=== PATIENT | male | born 1960 | race Caucasian/White ===

== ENCOUNTER 2017-07-21 19:05 | Emergency (ER) | payer BC ==
[~2017-07-21] VITALS: Ht 165.1 cm; Wt 87.8 kg
[~2017-07-21 19:05] MED LIST: ACET-749 PO; ALLO300T2 PO; POTA1080 PO; TRAM-10 PO
[2017-07-21 19:07] VITALS: TEMP 36.4; Ht 165.1 cm; Wt 87.8 kg
[2017-07-21] MEDS ORDERED: SODIUM CHLORIDE 0.9% 1000ML 1,000 ML IV SCH (19:45)
[2017-07-21 19:57] LABS: HEMATOCRIT 43.8 % (42-52); HEMOGLOBIN 15.7 g/dL (14.0-18.0); MEAN CELL VOLUME 87.1 fL (80-100); MEAN CORPUSCULAR HEMOGLOBIN 31.2 pg (25-34); MEAN CORPUSCULAR HGB CONC 35.8 g/dl (32-36); MEAN PLATELET VOLUME 9.8 fL (7.4-10.4); PLATELET COUNT 232 K/uL (130-400); RED CELL DISTRIBUTION WIDTH CV 13.3 % (11.5-14.5); RED CELL DISTRIBUTION WIDTH SD 42.3 fL (36.4-46.3); WHITE BLOOD COUNT 7.24 K/uL (4.8-10.8)
[2017-07-21 20:15] LABS: ALBUMIN 3.8 gm/dl (3.4-5.0); CALCIUM 8.5 mg/dl (8.5-10.1); CREATININE 1.17 mg/dl (0.60-1.40); POTASSIUM 3.9 mmol/L (3.5-5.1)
[2017-07-21 20:17] LABS: TOTAL PROTEIN 7.2 gm/dl (6.4-8.2)
--- NOTE | 2017-07-21 20:21 | EMERGENCY ROOM VISIT NOTE ---
History First contact with patient: 19:10 Chief Complaint: KIDNEY STONE Stated Complaint: KIDNEY STONE History of Present Illness The patient is a 57 year old male who presents to the Emergency Room with complaints of abdominal pain. The pain started 4 hours ago. It is located in his right flank. It is constant and radiates down to his right testicle. Nothing seems to make it better. He rates the pain as an 4-8/10 in severity. His associated symptoms include nausea, diarrhea, and haematuria He denies any vomiting, fevers, loss of appetite, or dysuria He has had 3 kidney stones in the past which have needed lithotripsy and needed to be stented. Review of Systems CONSTITUTIONAL: No fever, chills, sweats or night sweats. No recent infections. No weight loss or weight gain. NEUROLOGIC: No headaches, dizziness or syncopal episodes. HEENT: No hearing or visual changes. No sinus or nasal issues. CARDIOVASCULAR: No chest pain or palpitations. RESPIRATORY: No SOB, dyspnea, cough or hemoptysis. GASTROINTESTINAL: No vomiting, constipation, reflux, melena or hematochezia. + nausea GENITOURINARY: No dysuria, frequency, urgency, incontinence +hematuria SKIN: No rashes or skin lesions. No hair loss or nail changes. HEMATOLOGIC:+hematuria Past Medical/Surgical History Medical Problems: (1) Kidney stones GOUT Family History Patient reports no known family medical history. Social History Smoking Status: Never Smoker Alcohol Use: occasionally Drug Use: none Marital Status: Occupation Status: employed Current/Historical Medications Scheduled Allopurinol (Zyloprim), 300 MG PO DAILY Ascorbic Acid (Ascorbic Acid), 1,000 MG PO DAILY Cholecalciferol (Vitamin D3), 5,000 UNITS PO DAILY Coenzyme Q10 (Ubidecarenone) (Co Q 10), Unknown Dose PO DAILY Magnesium Oxide (Mag-Ox), 400 MG PO 3XWK Potassium Citrate (Potassium Citrate), 10 MEQ PO BID Probiotic Product (Probiotic), 1 CAP PO DAILY Vitamin A (Vitamin A), 8,000 UNITS PO DAILY Zinc Sulfate (Zinc Sulfate), 220 MG PO DAILY [Various Herbals], PO DAILY Allergies NKDA Physical Exam Vital Signs Date Time Temp Pulse Resp B/P (MAP) Pulse Ox O2 Delivery O2 Flow Rate FiO2 07/21/17 19:07 36.4 63 16 176/106 96 Room Air Physical Exam Neck: Supple; no JVD, nuchal rigidity, cervical lymphadenopathy, or auscultated bruits. Heart: Regular rate and rhythm. There is a normal S1 and S2 with no murmurs, clicks, or gallops appreciated. Lungs: Clear to auscultation bilaterally with no wheezes, rales, or rhonchi. Abdomen: Soft, completely nontender, nondistended, with good bowel sounds. There are no palpable pulsatile masses or hepatosplenomegaly. There is no guarding, rigidity, or rebound noted. Extremities: No evidence of cyanosis, clubbing, or edema. There are easily palpable peripheral pulses. Neuro:The patient is awake and alert, oriented to day, time, and place. Muscle strength is 5/5 in all 4 extremities. 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 There are no cerebellar signs. Medical Decision & Procedures Laboratory Results 07/21/17 19:45 07/21/17 19:45 Test 07/21/17 19:30 07/21/17 19:45 Urine Color YELLOW Urine Appearance CLEAR (CLEAR) Urine pH 5.5 (4.5-7.5) Urine Specific Ama 1.017 (1.000-1.030) Urine Protein NEG (NEG) Urine Glucose (UA) NEG (NEG) Urine Ketones NEG (NEG) Urine Occult Blood 3+ (NEG) Urine Nitrite NEG (NEG) Urine Bilirubin NEG (NEG) Urine Urobilinogen NEG (NEG) Urine Leukocyte Esterase NEG (NEG) Urine WBC (Auto) 1-5 /hpf (0-5) Urine RBC (Auto) >30 /hpf (0-4) Urine Hyaline Casts (Auto) 0 /lpf (0-5) Urine Epithelial Cells (Auto) 0-5 /lpf (0-5) Urine Bacteria (Auto) NEG (NEG) Red Blood Count 5.03 M/uL (4.7-6.1) Mean Corpuscular Volume 87.1 fL (80-100) Mean Corpuscular Hemoglobin 31.2 pg (25-34) Mean Corpuscular Hemoglobin Concent 35.8 g/dl (32-36) RDW Standard Deviation 42.3 fL (36.4-46.3) RDW Coefficient of Variation 13.3 % (11.5-14.5) Mean Platelet Volume 9.8 fL (7.4-10.4) Anion Gap 6.0 mmol/L (3-11) Est Creatinine Clear Calc Drug Dose 70.1 ml/min Estimated GFR () 79.2 Estimated GFR (Non- 68.3 BUN/Creatinine Ratio 24.3 (10-20) Calcium Level 8.5 mg/dl (8.5-10.1) Total Bilirubin 0.6 mg/dl (0.2-1) Aspartate Amino Transf (AST/SGOT) 15 U/L (15-37) Alanine Aminotransferase (ALT/SGPT) 27 U/L (12-78) Alkaline Phosphatase 62 U/L (45-117) Total Protein 7.2 gm/dl (6.4-8.2) Albumin 3.8 gm/dl (3.4-5.0) Globulin 3.4 gm/dl (2.5-4.0) Albumin/Globulin Ratio 1.1 (0.9-2) Medications Administered Medications (Trade) Dose Ordered Sig/Krys Route Start Time Stop Time Status Last Admin Dose Admin Sodium Chloride 1,000 ml @ 999 mls/hr Q1H1M IV 07/21/17 19:45 08/20/17 19:44 07/21/17 19:45 999 MLS/HR ED Course 0: I went to [facility] and did a full history and examination 1929: I spoke to Dr. Mejia and we discussed the plan for the patient. I ordered lab work and a CT scan of the patients abdomen 2014: Dr. Mejia was evaluating the patient and the patient passed his kidney stone and his pain resolved 2016: Discussed the plan with the patient and discharged him Medical Decision The patient's history was concerning for abdominal pain. Differential diagnosis: Etiologies such as appendicitis, diverticulitis, PUD, biliary pathology, UTI, pancreatitis, obstruction, mesenteric ischemia, aortic pathology, infections, inflammatory bowel disease, renal colic, as well as others were entertained. The patient came in with abdominal pain and we ordered a CT scan of his abdomen. He spontaneously passed a kidney stone while in the emergency department. I visualized this in the toilet. I discharged him with follow up with his PCP Impression Primary Impression: Kidney stone Departure Information Dispostion Home / Self-Care Condition GOOD Referrals Marcelino Proctor M.D. (PCP) Patient Instructions My [facility] Additional Instructions You came to the emergency department due to abdominal pain You passed your kidney stone while in the emergency department If you have any worsening pain you can take tylenol or ibuprofen over the counter to help with the pain Continue to drink plenty of fluids to help pass any other stones you may have If you have any worsening abdominal pain, vomiting, or fevers then please come back to the emergency department Please follow up with your PCP in the next 3-5 days
[2017-07-21] MEDS ORDERED: URC10 PO (20:22)
[2017-07-21] MEDS ORDERED: VITA80005 PO (20:24)
[2017-07-21] MEDS ORDERED: ASCO100061 PO (20:25)
[2017-07-21] MEDS ORDERED: MISCCAP80 PO (20:27)
[2017-07-21] MEDS ORDERED: COEN60CA2 PO (20:27)
[2017-07-21] MEDS ORDERED: ZINC1CAP PO (20:29)
[2017-07-21] MEDS ORDERED: CHOL1TAB46 PO (20:29)
[2017-07-21] MEDS ORDERED: MAGN400T6 PO (20:30)
[2017-07-21] MEDS ORDERED: [UNRECOGNIZED DRUG - REMARK] PO (20:32)
[2017-07-21] MEDS ORDERED: HERBALS PO (20:33)
[2017-07-21 20:41] VITALS: BP 142/94; PULSE 67; O2SAT 98
== END 2017-07-21 20:41 | disposition home or self-care (01) ==
LOC: C.EDB 19:06 → C.EDC 20:41
DX: N20.0 Calculus of kidney (principal); Z79.899 Other long term (current) drug therapy

== ENCOUNTER 2020-01-23 19:04 | Inpatient (IN) ==
[2020-01-23] MEDS ORDERED: SODIUM CHLORIDE 0.9% 1000ML 1,000 ML IV ONE ×2 (19:23→20:30)
[2020-01-23] MEDS ORDERED: ONDANSETRON INJ 2 MG/ML 2 ML VIAL IV STA (19:23)
--- NOTE | 2020-01-23 20:03 | XRay Report ---
XR chest 1V portable CLINICAL HISTORY: Atypical chest pain COMPARISON STUDY: No previous studies for comparison. FINDINGS: The heart is mildly enlarged. There is no failure. There is no focal pulmonary consolidatio n. There are no significant pleural effusions. There are left-sided rib fractures, likely old given t he absence of a history of trauma and left-sided chest pain[ IMPRESSION: 1. No active disease in the chest. ACT 112: Negative or not required by law. Electronically signed by: Wayne Rothman M.D. 01/23/2020 8:01 PM
[2020-01-23 20:11] LABS: Partial Thromboplastin Ratio 1.1; Partial Thromboplastin Time 29.9 Seconds (21.0-31.0); Prothrombin Time 10.7 Seconds (9.0-12.0)
[2020-01-23 20:14] LABS: Basophils # (auto) 0.01 K/uL (0-0.2); Basophils % (auto) 0.1 %; Eosinophils # (auto) 0.06 K/uL (0-0.5); Eosinophils % (auto) 0.6 %; Hematocrit (blood only) 45.8 % (42-52); Immature Granulocytes # (auto) 0.03 K/uL (0.00-0.02); Immature Granulocytes % (auto) 0.3 %; Lymphocytes # (auto) 0.87 K/uL (1.2-3.4); Lymphocytes % (auto) 8.8 %; Mean Corpuscular Hemoglobin 30.9 pg (25-34); Mean Corpuscular Hgb Conc 34.9 g/dL (32-36); Mean Corpuscular Volume 88.4 fL (80-100); Mean Platelet Volume 10.1 fL (7.4-10.4); Monocytes # (auto) 0.86 K/uL (0.11-0.59); Monocytes % (auto) 8.7 %; Neutrophils # (auto) 8.07 K/uL (1.4-6.5); Neutrophils % (auto) 81.5 %; Platelet Count 188 K/uL (130-400); RDW Coefficient of Variation 12.8 % (11.5-14.5); RDW Standard Deviation 41.4 fL (36.4-46.3); Red Blood Count 5.18 M/uL (4.7-6.1)
[2020-01-23 20:23] LABS: Alanine Aminotransferase 27 U/L (12-78); Albumin Globulin Ratio 1.2 (0.9-2); Albumin Level 3.5 gm/dl (3.4-5.0); Alkaline Phosphatase 63 U/L (45-117); Aspartate Aminotransferase 18 U/L (15-37); BUN Creatinine Ratio 9.7 (10-20); Bilirubin,Total 0.6 mg/dl (0.2-1); Blood Urea Nitrogen 37 mg/dl (7-18); Calcium 8.1 mg/dl (8.5-10.1); Carbon Dioxide 25 mmol/L (21-32); Chloride 108 mmol/L (98-107); Creatine Kinase 65 U/L (39-308); Creatine Kinase MB < 1.0 ng/ml (0.5-3.6); Creatinine Clr Calc Pharmacy 21.9 ml/min; Est GFR (Non-African American) 16.4; Globulin 2.9 gm/dl (2.5-4.0); Glucose 110 mg/dl (70-99); Lipase 93 U/L (73-393); Potassium 4.1 mmol/L (3.5-5.1); Sodium 141 mmol/L (136-145); Total Protein 6.4 gm/dl (6.4-8.2); Troponin I < 0.015 ng/ml (0-0.045)
[2020-01-23] MEDS ORDERED: HYDROmorphone INJ 0.5 MG/0.5 ML SYR IV STA (22:00)
[2020-01-24] MEDS: cefTRIAXone SODIUM 2,000 MG in DEXTROSE 5% 50 ML IV SCH (00:28)
[2020-01-24] MEDS: FAMOTIDINE 20 MG in SYRINGE 3 ML IV SCH ×3 (00:29→20:53)
[2020-01-24] MEDS: SODIUM CHLORIDE 0.9% 1000ML 1,000 ML IV SCH ×3 (00:29→14:10)
[2020-01-24] MEDS: ONDANSETRON INJ 2 MG/ML 2 ML VIAL IV PRN ×2 (00:29→10:25)
--- NOTE | 2020-01-24 00:36 | History and Physical Report ---
DATE OF ADMISSION: 01/23/2020 CHIEF COMPLAINT: Right flank pain. HISTORY OF PRESENT ILLNESS: This 59-year-old male with past medical history significant for gout, no longer on medications, history of old AK, GERD, history of urothelial carcinoma of bladder, status post resection and 6 weeks of BCG induction, currently on surveillance. History of multiple kidney stones in the past, comes because of right flank pain. The patient was in the ER yesterday with right groin pain and found to have 7 mm obstructing calculus in the right proximal ureter with moderate right hydronephrosis. The patient felt better with the pain medication, UA was trace positive and was sent home on cefdinir. He wanted to go home and he was discharged and patient says after going home, he immediately was nauseous and vomited and could not eat anything, but he slept okay. In the morning, when he woke up he tried to eat banana and he could not keep it down. He was vomiting and could not eat much and even drinking water making him feel heartburn kind of feeling. In the afternoon the pain came back and that has brought him back to the hospital. His creatinine was 1.58 yesterday. His baseline seems to be around 1.1 and today his creatinine jumped up to 3.76 and his CAT scan showing there is no change in the kidney stone. The patient currently requiring pain medications. He said he did not urinate much today, but after getting fluids, he is able to urinate in the ER. Denies any fever, but felt some cold, has a headache that is getting better with the pain medication. No blurred vision, no earache, no runny nose, no sore throat, no cough, no difficulty swallowing, no chest pain, no shortness of breath. Normal bowel movements. He has some hematuria, since couple of days but is getting better. No burning micturition, no swelling in the legs, no rash. Hemodynamics are stable. ALLERGIES: No known drug allergies. PAST MEDICAL HISTORY: As mentioned above. PAST SURGICAL HISTORY: Left heart catheterization, colonoscopy, cystourethroscopy with lithotripsy multiple times, stent placement, stent removal, tonsillectomy. MEDICATIONS: Currently the patient is on cefdinir 300 mg p.o. b.i.d., multivitamin 1 tablet daily, oxycodone 5 mg p.o. q. 6 hours p.r.n., Flomax 0.4 mg p.o. daily. FAMILY HISTORY: Significant for father had throat cancer, diabetes, heart disorder, nephrolithiasis. Paternal grandmother had throat cancer. SOCIAL HISTORY: Lives alone. Former smoker, quit in 1979, used to drink heavily, quit in 1998. No drug use. REVIEW OF SYMPTOMS: As per HPI. Rest of review of symptoms negative. PHYSICAL EXAMINATION: GENERAL: The patient is obese, not in acute distress. VITAL SIGNS: Temperature 37.5, pulse 61, respiratory rate 18, blood pressure 142/90, oxygen 95% on room air. HEENT: No pallor, no icterus. Oral mucosa dry. NECK: No JVD, no neck masses. CARDIOVASCULAR: S1, S2 heard, regular rate and rhythm, no murmur, no gallop. RESPIRATORY SYSTEM: Normal AP diameter. No accessory muscle use. No wheezing, no crackles. ABDOMEN: Soft, bowel sounds present. Nontender. No CVA tenderness, no guarding, no rigidity. CENTRAL NERVOUS SYSTEM: Cranial nerves II-XII grossly intact. Nonfocal. EXTREMITIES: No edema, no erythema. LABORATORY DATA: WBC 9.9, hemoglobin 16, hematocrit 45.8, platelets 188. PT 10.7, INR 1, APTT 29.9. Sodium 141, potassium 4.1, chloride 108, bicarbonate 25, BUN 37, creatinine 3.76, serum glucose 110, calcium 8.1, total bilirubin 0.6, AST 18, ALT 27, alkaline phosphatase 63, total creatinine kinase 65. Troponin I less than 0.015. Lipase 93. Chest x-ray, no active disease in the chest. EKG: Sinus bradycardia, rate of 55, no significant change from previous EKG. IMAGING: CT of abdomen and pelvis without contrast shows obstructing 7 mm proximal right ureteral stone is unchanged in position when compared to prior exam. There is persistent upstream hydroureteronephrosis with perinephric stranding fluid. There is stable nonobstructing right kidney stones, stable atrophy of the left kidney. ASSESSMENT AND PLAN: This is a 59-year-old male who presents with renal colic and worsening renal function. 1. Renal colic: A 7 mm obstructing proximal right ureteral kidney stone, history of multiple kidney stones in the past with multiple cystoscopies, stone extraction, and lithotripsy. The patient was discharged home yesterday from Er comes back with severe pain and also acute kidney injury. We will place him on n.p.o., IV fluids, IV Dilaudid p.r.n., IV Zofran p.r.n. Flomax. Urology consulted and notified. N.p.o. after midnight. 2. Acute kidney injury: Baseline creatinine 1.1, current creatinine 3.7 secondary to above, getting fluids. We will follow the repeat labs. The patient also had nausea, vomiting yesterday and could not eat anything, possibly dehydration contributing. 3. Mild urinary tract infection, mildly UA positive: Was sent home on cefdinir. We will place him on Rocephin. Follow the cultures. 4. History of bladder tumor, status post resection and treatment with BCG. Currently on surveillance, follow up with urology. 5. Gastroesophageal reflux disease. The patient has some heartburn symptoms. We will place him on IV Pepcid. . 6. Deep venous thrombosis prophylaxis: Sequential compression devices. DISPOSITION: Admit to medical floor. Expect to discharge home and follow with family doctor. Level 1 full code. MTDD
[2020-01-24] MEDS: ACETAMINOPHEN 325 MG TAB PO PRN ×2 (00:38→20:53)
[2020-01-24 05:23] LABS: Basophils # (auto) 0.01 K/uL (0-0.2); Basophils % (auto) 0.1 %; Eosinophils # (auto) 0.07 K/uL (0-0.5); Eosinophils % (auto) 0.8 %; Immature Granulocytes # (auto) 0.02 K/uL (0.00-0.02); Immature Granulocytes % (auto) 0.2 %; Lymphocytes # (auto) 1.01 K/uL (1.2-3.4); Lymphocytes % (auto) 11.6 %; Mean Corpuscular Hemoglobin 31.3 pg (25-34); Mean Corpuscular Hgb Conc 34.1 g/dL (32-36); Mean Corpuscular Volume 91.5 fL (80-100); Monocytes # (auto) 0.87 K/uL (0.11-0.59); Neutrophils # (auto) 6.72 K/uL (1.4-6.5); Neutrophils % (auto) 77.3 %; Platelet Count 169 K/uL (130-400); RDW Coefficient of Variation 13.1 % (11.5-14.5); RDW Standard Deviation 43.4 fL (36.4-46.3); Red Blood Count 4.48 M/uL (4.7-6.1)
[2020-01-24] MEDS: HYDROmorphone INJ 0.5 MG/0.5 ML SYR IV PRN ×2 (05:48→09:31)
[2020-01-24 05:59] LABS: BUN Creatinine Ratio 9.1 (10-20); Calcium 6.9 mg/dl (8.5-10.1); Creatinine Clr Calc Pharmacy 20.3 ml/min; Est GFR (African American) 18.2; Est GFR (Non-African American) 15.7; Potassium 4.5 mmol/L (3.5-5.1)
--- NOTE | 2020-01-24 07:43 | CT Scan Report ---
ABDOMEN AND PELVIS CT WITHOUT CONTRAST CT DOSE: 843.14 mGy.cm HISTORY: Pt c/o Rt sided flank pain TECHNIQUE: Multiaxial CT images of the abdomen and pelvis were performed without contrast. A dose lo wering technique was utilized adhering to the principles of ALARA. COMPARISON STUDY: Abdomen and pelvis CT 01/22/2020. FINDINGS: There are few small nonobstructing stones within the right kidney, unchanged. Mild right hy dronephrosis secondary to an obstructing 7 mm stone within the proximal right ureter best seen image 45 of 93. There is also unchanged. Right perinephric edema persists. The bladder is unremarkable. Atr ophic left kidney, unchanged. Bibasilar linear densities consistent with subsegmental atelectasis. Th e unenhanced liver, gallbladder, spleen, adrenal glands, and pancreas are unremarkable. No retroperit victoria lymphadenopathy. Suboptimal evaluation for bowel pathology due to the lack of intravenous and o ral contrast. However, there is no definite bowel wall thickening or obstruction. Colonic diverticulo sis. No evidence for diverticulitis. Normal appendix. IMPRESSION: 1. No change in the 7 mm obstructing stone within the proximal right ureter resulting in mild right h ydronephrosis. 2. Stable right-sided nephrolithiasis. 3. Additional findings as described above. ACT 112: Negative or not required by law. Electronically signed by: Brett Barrett M.D. 01/24/2020 7:41 AM
--- NOTE | 2020-01-24 09:00 | Urology Consultation ---
Date of Consultation January 24, 2020 Assessment & Plan (1) Kidney stones: Patient with obs stone with worsening renal function with likely decreased function in contralateral kidney. No major family history of stones. Patient has had multiple stones in past with Dr. Hahn. Risks and benefits discussed at length for procedure. These include bleeding, infection, injury to surrounding tissues or organs, and risks associated with anesthesia. Patient states understanding and agrees to proceed. Will sign consent and schedule. Worsening renal failure this morning with hydration. Patient NPO. Plan for cystoscopy with right stent. (2) KYLEE (acute kidney injury): (3) Renal failure: History of Present Illness Attending Physician: Yair Schneider MD History of Present Illness New consultation for patient with stone, discomfort, obstruction, and ill feelings. Patient developed sudden onset of pain into flank going down and radiating into groin and back in waves comes and goes. Can be severe at times. Discussed and reviewed patient's family history for any history of stone disease. Also, discussed patient's medical surgery history especially related to any history of urinary issues or stone disease. History of left kidney cancer. Left kidney smaller and mild atrophic in appearance. Patient was admitted and is undergoing observation. Allergies Allergy/AdvReac Type Severity Reaction Status Date / Time No Known Allergies Allergy Verified 01/23/20 19:53 Home Medications Home Medications Medication Instructions Recorded Confirmed Type cefdinir 300 mg PO BID 10 Days #20 cap 01/22/20 01/23/20 Rx multivitamin 1 tab PO DAILY 01/22/20 01/23/20 History tamsulosin [Flomax] 0.4 mg PO DAILY #14 cap 01/22/20 01/23/20 Rx oxycodone 5 mg PO Q6H PRN 01/23/20 01/23/20 History Patient History Medical History Anxiety (Acute) Gout (Acute) Kidney stones (Acute) Right knee meniscal tear (Acute) Surgical History H/O lithotripsy (Acute) H/O right knee surgery (Acute) Social History Preferred Language: Swiss Communication Ability: Effective Folder Seamer Automatic Required: No Beliefs That Will Affect Care: None Current Living Situation: Other Current Living Situation Comment: lives with ex monica Other Information That Helps Us Care for You: No Feels Safe at Home: Yes Safety Concerns: Feels Safe At This Time Smoking Status: Never smoker Do You Dip or Chew Tobacco: No ; Second Hand Exposure: No ; Tobacco Cessation Education Requested by Patient: No Hx Alcohol Use: Yes Alcohol type: beer Hx Substance Use: Yes substance use type: marijuana Last Used Substance: Days (ago) Review of Systems Review of Systems: All systems reviewed & are unremarkable except as noted in HPI & below Physical Exam Physical Exam: General: Alert and oriented x 3 in no acute distress. Patient is well nourished and well kept. HEENT: Normocephalic Atraumatic. Inspection normal. Cranial Nerves 2-12 Grossly intact. Nares are clear. Neck is supple. Normal inspection of face. Normal inspection of neck. Neurologic: No deficits on inspection. Baseline for motor function and sensory. Psychologic: Normal affect. Respiratory: Nonlabored. No use of accessory muscles. No tachypnea or dyspnea. Cardiovascular: No tachycardia Skin: [place] and Dry. No rashes or visible lesions. Extremities: Moving without issues. No motor deficits on inspection Lymphatics: No edema Abdomen: Soft Non-distended. No acites. No rebound or guarding. Results & Data Vital Signs (Past 12 Hours) Vital Signs Temp Pulse Pulse Resp BP BP Pulse Ox 01/24/20 07:31 36.6 C 54 L 16 126/72 94 01/23/20 23:45 36.9 C 63 14 161/94 H 97 01/23/20 23:44 36.9 C 63 14 161/94 H 97 01/23/20 22:33 61 18 142/86 H 95 PG Care Time/CCT Total # of Minutes Spent Total Time Spent with Patient: Total time spent is greater than 50% in coordination of care (as documented) at patient's floor/unit and/or counseling patient: Coding Level of Care Code 37433 Inpt Consult Level 5 Diagnoses Kidney stones N20.0 KYLEE (acute kidney injury) N17.9 Renal failure N19
[2020-01-24] MEDS: TAMSULOSIN HCL 0.4 MG CAP PO SCH (09:08)
[2020-01-24] MEDS: MULTIVITAMIN TAB PO SCH (09:08)
--- NOTE | 2020-01-24 09:26 | Hospitalist Progress Note ---
Date of Service January 24, 2020 Assessment & Plan (1) ARF (acute renal failure): obstructing proximal right ureteral kidney stone -This is a 59-year-old male who presents with renal colic and worsening renal function due to 7 mm obstructing proximal right ureteral kidney stone -baseline creatinine 1.1 but admission creatinine of 3.7 likely from stone obstruction -Patient has right flank pain from kidney stone. on IV fluids 100 cc/hr, he does not feel he is urinating much. currently NPO and [facility]. will have nurse give pain medications and bladder scan if acosta needed possible urinary tract infection -on ceftriaxone History of bladder tumor, status post resection and treatment with BCG. -awaiting [facility] urology cystoscopy for removal of kidney ston Gastroesophageal reflux disease -reported history of heart attack 15 years ago as per patient -sinus bradycardia on admission EKG -on IV Pepcid -no typical cardiac chest pain symptoms at this time -should proceed to urology procedure because of acute renal failure and pain from kidney stones Deep venous thrombosis prophylaxis: Sequential compression devices. Admission and Anticipated Discharge Date Admission Date: January 23, 2020 Subjective Patient has right flank pain from kidney stone. on IV fluids 100 cc/hr, he does not feel he is urinating much. currently NPO and waiting for [facility] urology to remove the kidney stone. breathing on room air. no shortness of breath. no palpitations. no dizziness. no headache. no vomiting Review of Systems Review of Systems: All systems reviewed & are unremarkable except as noted in Subjective Physical Exam Constitutional: WD/WN, vitals as above Eyes: PERRL, conjunctivae normal, anicteric sclerae EOM intact bilaterally ENMT: external ear and nose normal, oropharynx normal Neck: trachea midline, no thyromegaly normal visual inspection Respiratory: normal respiratory effort, lungs clear to auscultation Cardiovascular: Rate/Rhythm: + bradycardic Gastrointestinal (Abdomen): Percussion/Palpation: abdomen soft Musculoskeletal: Head/Neck/Chest: normocephalic and head atraumatic Neurologic: PERRL, EOMI, accommodation nl, no face palsy, no dysarthria CN's II-XI intact bilaterally Psychiatric: A+Ox3, euthymic affect Results & Data Results & Data ([facility]) Vital Signs (Past 12 Hours) Vital Signs Temp Pulse Pulse Resp BP BP Pulse Ox 01/24/20 07:31 36.6 C 54 L 16 126/72 94 01/23/20 23:45 36.9 C 63 14 161/94 H 97 01/23/20 23:44 36.9 C 63 14 161/94 H 97 01/23/20 22:33 61 18 142/86 H 95
--- NOTE | 2020-01-24 14:17 | Electrocardiogram Report ---
Test Reason : Blood Pressure : / mmHG Vent. Rate : 055 BPM Atrial Rate : 055 BPM P-R Int : 202 ms QRS Dur : 090 ms QT Int : 412 ms P-R-T Axes : 049 028 017 degrees QTc Int : 394 ms Sinus bradycardia possible Inferior infarct , age undetermined Abnormal ECG When compared with ECG of 07-MAR-2015 08:42, No significant change was found Confirmed by Pancho Yo ([id number]) on 01/24/2020 2:17:24 PM Referred By: REFERRED SELF Confirmed By:Mohsen Yo
[2020-01-24 19:00] LABS: BUN Creatinine Ratio 9.9 (10-20); Calcium 7.3 mg/dl (8.5-10.1); Creatinine Clr Calc Pharmacy 19.6 ml/min; Est GFR (African American) 17.6; Est GFR (Non-African American) 15.1; Potassium 4.5 mmol/L (3.5-5.1)
[2020-01-25] MEDS: cefTRIAXone SODIUM 2,000 MG in DEXTROSE 5% 50 ML IV SCH (01:21)
[2020-01-25] MEDS: SODIUM CHLORIDE 0.9% 1000ML 1,000 ML IV SCH (01:21)
[2020-01-25 05:17] LABS: Basophils # (auto) 0.03 K/uL (0-0.2); Basophils % (auto) 0.4 %; Eosinophils # (auto) 0.18 K/uL (0-0.5); Eosinophils % (auto) 2.5 %; Hematocrit (blood only) 41.3 % (42-52); Hemoglobin 13.8 g/dL (14.0-18.0); Immature Granulocytes # (auto) 0.03 K/uL (0.00-0.02); Immature Granulocytes % (auto) 0.4 %; Lymphocytes # (auto) 1.38 K/uL (1.2-3.4); Lymphocytes % (auto) 19.5 %; Mean Corpuscular Hemoglobin 29.7 pg (25-34); Mean Corpuscular Hgb Conc 33.4 g/dL (32-36); Mean Platelet Volume 9.7 fL (7.4-10.4); Monocytes # (auto) 0.72 K/uL (0.11-0.59); Monocytes % (auto) 10.2 %; Neutrophils # (auto) 4.73 K/uL (1.4-6.5); Platelet Count 183 K/uL (130-400); RDW Coefficient of Variation 12.7 % (11.5-14.5); RDW Standard Deviation 40.8 fL (36.4-46.3); Red Blood Count 4.64 M/uL (4.7-6.1); White Blood Count 7.07 K/uL (4.8-10.8)
[2020-01-25 05:41] LABS: Albumin Level 2.7 gm/dl (3.4-5.0); BUN Creatinine Ratio 11.5 (10-20); Calcium 7.4 mg/dl (8.5-10.1); Creatinine Clr Calc Pharmacy 24.3 ml/min; Est GFR (African American) 22.7; Est GFR (Non-African American) 19.6; Potassium 4.1 mmol/L (3.5-5.1)
[2020-01-25 05:44] LABS: Albumin Globulin Ratio 0.9 (0.9-2); Bilirubin,Total 0.5 mg/dl (0.2-1); Globulin 2.9 gm/dl (2.5-4.0); Total Protein 5.6 gm/dl (6.4-8.2)
[2020-01-25] MEDS: FAMOTIDINE 20 MG in SYRINGE 3 ML IV SCH (08:17)
[2020-01-25] MEDS: MULTIVITAMIN TAB PO SCH (08:17)
[2020-01-25] MEDS: TAMSULOSIN HCL 0.4 MG CAP PO SCH (08:17)
--- NOTE | 2020-01-25 08:17 | Hospitalist Progress Note ---
Date of Service January 25, 2020 Assessment & Plan (1) ARF (acute renal failure): ARF (acute renal failure) from obstructing proximal right ureteral kidney stone Renal colic from obstructing proximal right ureteral kidney stone obstructing proximal right ureteral kidney stone -This is a 59-year-old male who presents with renal colic and worsening renal function due to 7 mm obstructing proximal right ureteral kidney stone -patient reports multiple kidney stone problems in the past and he reports in the past he self stopped potassium citrate -baseline creatinine 1.1 but admission creatinine of 1.58 and then next creatinine level was 3.76 -01/24/2020 patient passed the kidney stone around noon and this is sent to the lab, resolution of flank pain after passing the stone. patient does not want KUB because he fears radiation from radiology imaging and because he feels certain he passes the stone. he does not wish to go to OR for cystoscopy or stent. he is now allowed to eat a diet and continued on IV fluids as 80 cc/hr of normal saline -01/25/2020 creatinine coming down slightly to 3.25. He is making urine. The normal saline is increased to 100 cc/hr and plans to repeat lab at noon; he agrees to be seen by nephrology consult. urinary tract infection is likely ruled out -was started on empiric ceftriaxone on this admission however the urine analysis is without bacteria -however given, elevated creatinine elevations and recent kidney stone, it would be good idea to continue daily dosing of ceftriaxone for now until creatinine has further improvements History of bladder tumor, status post resection and treatment with BCG. Gastroesophageal reflux disease History of myocardial infarction in the past -reported history of heart attack 15 years ago as per patient -in regards to his history of heart attack 15 years ago, he is not on any cardiac medications because at the time he had heart attack while using toxic substances, he reports he is following primary care doctor and no current needs for cardiac medication as per his relationship with his primary care doctor (al though he reports self stopping statins in the past on his own accord, so I do not know how much of this is based on outpatient recommendation versus patient's own discretion). He does say he will follow up with his blood pressures which he notes has been somewhat higher in recent past prior to this hospitalization for flank pain from kidney stone. He denies current use of of any toxic recreational drugs or alcohol -sinus bradycardia on admission EKG -was given on IV Pepcid -no typical cardiac chest pain symptoms at this time Deep venous thrombosis prophylaxis: Sequential compression devices. Admission and Anticipated Discharge Date Admission Date: January 23, 2020 Subjective Patient on IV fluids. no acute distress. no chest pain. no shortness of breath. on room air. no palpitations. no dizziness. no lightheadedness. no vomiting. ambulatory with the IV pole. trend the creatinine Review of Systems Review of Systems: All systems reviewed & are unremarkable except as noted in Subjective Physical Exam Constitutional: WD/WN, vitals as above Eyes: PERRL, conjunctivae normal, anicteric sclerae EOM intact bilaterally ENMT: external ear and nose normal, oropharynx normal Neck: trachea midline, no thyromegaly normal visual inspection Respiratory: normal respiratory effort, lungs clear to auscultation Cardiovascular: Rate/Rhythm: + bradycardic Gastrointestinal (Abdomen): Percussion/Palpation: abdomen soft Musculoskeletal: Head/Neck/Chest: normocephalic and head atraumatic Neurologic: PERRL, EOMI, accommodation nl, no face palsy, no dysarthria CN's II-XI intact bilaterally Psychiatric: A+Ox3, euthymic affect Results & Data Results & Data ([facility]) Vital Signs (Past 12 Hours) Vital Signs Temp Pulse Resp BP Pulse Ox 01/25/20 07:41 36.6 C 48 L 18 146/83 H 94 01/25/20 01:28 140/81 01/24/20 23:33 36.5 C 52 L 16 151/84 H 95
[2020-01-25] MEDS ORDERED: NORMOSOL-R 1,000 ML IV SCH (08:45)
[2020-01-25] MEDS ORDERED: ACETAMINOPHEN 325 MG TAB PO PRN (11:12)
[2020-01-25 12:31] LABS: BUN Creatinine Ratio 13.2 (10-20); Calcium 8.2 mg/dl (8.5-10.1); Creatinine Clr Calc Pharmacy 26.9 ml/min; Est GFR (African American) 25.6; Est GFR (Non-African American) 22.1; Potassium 4.5 mmol/L (3.5-5.1)
--- NOTE | 2020-01-25 13:42 | Nephrology Consultation ---
Date of Consultation January 25, 2020 Assessment & Plan (1) ARF (acute renal failure): improving nonoliguric obstructive renal failure after relief with right ureteral stenting . Baseline creatinine 1.1 ( last reading as outpatient March 2019). Presented with creatinine 3.8 on January 22, peak value 4.0 creatinine on January 23. Reading January 24 is 3.3. Volume status appropriate. Mild electrolyte abnormalities Most notably hyperchloremia. no concern about need for [employer]. -daily basic metabolic panel -continue nephrotoxin avoidance -change normal saline at 100 mL hourly 2 Normosol at 125 mL hourly -Encourage p.o. fluid intake as below -regular diet appropriate at this time -will need outpatient follow-up with me after discharge Present on Admission?: Yes (2) Kidney stone: already with left renal atrophy from obstructive uropathy damage due to kidney stones. Longstanding history of stones, historically when I saw him in clinic in the past ( most recently 2015) he had combined 50%calcium oxalate and 50%uric acid nephrolithiasis. -continue goal 80-100 oz minimum daily water intake -await stone pathology currently in process - needs to follow-up with me in clinic after discharge - serum uric acid level ordered for a.m. for completeness - urine pH was 8.0 on presentation, so uric acid stones less likely here > will order to recheck urine however Present on Admission?: Yes (3) Bladder cancer: follows with Dr. Hahn; diagnosed incidentally spring 2018 and per report was T1 G3. Plan had been for surveillance cystoscopy December 2019, then transition to Q 4 months surveillance cystoscopy. last cystoscopy was September 2019 and no tumor seen: December appointment missed and not yet successfully rescheduled - plan had been to reschedule in March for cystoscopy with Jovani -- need to ensure this is done at discharge Present on Admission?: Yes History of Present Illness Reason for Consultation: Acute renal failure, nephrolithiasis Requesting Physician: Dr Schneider Attending Physician: Yair Schneider MD History of Present Illness 59-year-old male whom I am asked to see for acute renal failure after he was admitted On January 22 with obstructing right ureteral kidney stone. Past medical history includes longstanding history of stones requiring multiple urologic procedures in the past, bladder tumor status post resection and BCG therapy, GERD, myocardial infarction reported approximately 2004 and currently not followed by Cardiology or taking cardiac medications. The patient's baseline creatinine is 1.1 as recently as March 2019 on outpatient labs. Presenting creatinine on January 22 was 3.8 with peak creatinine 4.0 on January 23. This morning, creatinine 3.3. Allergies Allergy/AdvReac Type Severity Reaction Status Date / Time No Known Allergies Allergy Verified 01/23/20 19:53 Home Medications Home Medications Medication Instructions Recorded Confirmed Type cefdinir 300 mg PO BID 10 Days #20 cap 01/22/20 01/23/20 Rx multivitamin 1 tab PO DAILY 01/22/20 01/23/20 History tamsulosin [Flomax] 0.4 mg PO DAILY #14 cap 01/22/20 01/23/20 Rx oxycodone 5 mg PO Q6H PRN 01/23/20 01/23/20 History Patient History Medical History Anxiety (Acute) Gout (Acute) Kidney stones (Acute) Right knee meniscal tear (Acute) Surgical History H/O lithotripsy (Acute) H/O right knee surgery (Acute) Social History Preferred Language: Kyr[place]z Communication Ability: Effective [employer] Furniture [employer]er Required: No Beliefs That Will Affect Care: None Current Living Situation: Other Current Living Situation Comment: lives with ex [facility] Other Information That Helps Us Care for You: No Feels Safe at Home: Yes Safety Concerns: Feels Safe At This Time Smoking Status: Never smoker Do You Dip or Chew Tobacco: No ; Second Hand Exposure: No ; Tobacco Cessation Education Requested by Patient: No Hx Alcohol Use: Yes Alcohol type: beer Hx Substance Use: Yes substance use type: marijuana Last Used Substance: Days (ago) Results & Data Vital Signs (Past 12 Hours) Vital Signs Temp Pulse Resp BP Pulse Ox 01/25/20 07:41 36.6 C 48 L 18 146/83 H 94 Diagnostic Findings chest x-ray on admission: Remote healed left-sided rib fractures; else no active disease in the chest CT abdomen pelvis non con at admission FINDINGS: There are few small nonobstructing stones within the right kidney, unchanged. Mild right hydronephrosis secondary to an obstructing 7 mm stone within the proximal right ureter best seen image 45 of 93. There is also unchanged. Right perinephric edema persists. The bladder is unremarkable. Atrophic left kidney, unchanged. Bibasilar linear densities consistent with subsegmental atelectasis. The unenhanced liver, gallbladder, spleen, adrenal glands, and pancreas are unremarkable. No retroperitoneal lymphadenopathy. Suboptimal evaluation for bowel pathology due to the lack of intravenous and oral contrast. However, there is no definite bowel wall thickening or obstruction. Colonic diverticulosis. No evidence for diverticulitis. Normal appendix. IMPRESSION: 1. No change in the 7 mm obstructing stone within the proximal right ureter resulting in mild right hydronephrosis. 2. Stable right-sided nephrolithiasis. 3. Additional findings as described above. (1) ARF (acute renal failure) Acute renal failure type: unspecified Qualified Code(s): N17.9 - Acute kidney failure, unspecified (2) Bladder cancer Bladder location: unspecified site Qualified Code(s): C67.9 - Malignant neoplasm of bladder, unspecified
[2020-01-25 14:39] LABS: Appearance Urine Clear (Clear); Bacteria Urine Automated Negative (Negative); Bilirubin Urine Negative (Negative); Blood Urine 1+ (Negative); Cast Urine Automated 0 /lpf (0-5); Color Urine Yellow; Epithelial Cell Urine Auto 0-5 /lpf (0-5); Glucose Urine UA Negative (Negative); Ketones Urine Negative (Negative); Leukocyte Esterase Urine Negative (Negative); Nitrite Urine Negative (Negative); Protein Urine Negative (Negative); RBC Urine Automated 0-4 /hpf (0-4); Urobilinogen Urine Negative (Negative); pH Urine 6.5 (4.5-7.5)
[2020-01-25] MEDS ORDERED: LORazepam 0.5 MG TAB PO STA ×2 (15:32→21:55)
[2020-01-25] MEDS: NORMOSOL-R 1,000 ML IV SCH (19:59)
[2020-01-25] MEDS ORDERED: FAMOTIDINE 20 MG TAB PO SCH (21:00)
[2020-01-25] MEDS: cloNIDine HCL 0.1 MG TAB PO PRN (22:18)
--- NOTE | 2020-01-25 23:02 | Emergency Department Note ---
History of Present Illness General Chief complaint: Vomiting Stated complaint: VOMITING, FEVER, CANT EAT OR DRINK, ABD PAIN Time Seen by Provider: 01/23/20 19:14 Source: patient, RN notes reviewed and old records reviewed Mode of arrival: ambulatory Limitations: no limitations History of Present Illness Provider complaint: vomiting Onset (ago): day(s) 1 Location: abdomen Severity: mild Pain Consistency: + colicky Maximum Pain Intensity: 2 Current Pain Intensity: 0 Quality: + aching Relieved By: + immobilization Exacerbated By: + movement Associated symptoms: + loss of appetite and + nausea/vomiting Treatments prior to arrival: none This is a 59-year-old male who was diagnosed with a kidney stone yesterday in the emergency department he returns to the emergency department complaining of flank pain. The patient reports he has been vomiting and is been unable to keep anything down. He describes the pain as a burning sensation. He reports immobilization makes the pain better however movement makes the pain worse. Home Medications Home Medications Medication Instructions Recorded Confirmed Type cefdinir 300 mg PO BID 10 Days #20 cap 01/22/20 01/23/20 Rx multivitamin 1 tab PO DAILY 01/22/20 01/23/20 History tamsulosin [Flomax] 0.4 mg PO DAILY #14 cap 01/22/20 01/23/20 Rx oxycodone 5 mg PO Q6H PRN 01/23/20 01/23/20 History Allergies Allergy/AdvReac Type Severity Reaction Status Date / Time No Known Allergies Allergy Verified 01/23/20 19:53 Past Med/Surg History Medical History Anxiety (Acute) Bladder cancer diagnosed incidentally November 2018, status post December 2018 resection followed by induction BCG Gout (Acute) Kidney stones (Acute) Renal atrophy, left Right knee meniscal tear (Acute) Surgical History H/O lithotripsy (Acute) H/O right knee surgery (Acute) Social History Preferred Language: Somali Communication Ability: Effective Night Club Manager Required: No Beliefs That Will Affect Care: None Current Living Situation: Other Current Living Situation Comment: lives with ex monica Other Information That Helps Us Care for You: No Feels Safe at Home: Yes Safety Concerns: Feels Safe At This Time Smoking Status: Never smoker Do You Dip or Chew Tobacco: No ; Second Hand Exposure: No ; Tobacco Cessation Education Requested by Patient: No Hx Alcohol Use: Yes Alcohol type: beer Hx Substance Use: Yes substance use type: marijuana Last Used Substance: Days (ago) Review of Systems A total of 10 systems reviewed and were otherwise negative Physical Exam VITAL SIGNS - Vital signs and nursing notes were reviewed. GENERAL - 59-year-old male appearing stated age who is in no acute distress. Communicates well with provider and answers questions appropriately. SKIN - Without rashes. HEAD - NC/AT. EYES - PERRL with EOMI bilaterally. Sclera anicteric. Palpebral conjunctiva pink and moist with no injection noted. EARS - No deformities of external structures noted on gross examination bilaterally. No pain elicited with palpation of the tragus bilaterally. External auditory canals without discharge or otorrhea. Tympanic membranes pearly porter without retraction or bulging. No fluid or purulent material visualized behind the TM. Handle of malleus, umbo, cone of light, pars tensa/flaccid all easily visualized. NOSE - Midline and without cyanosis. No epistaxis or purulent drainage noted. Septum midline without deviation or septal hematoma noted. MOUTH/OROPHARYNX - Without perioral cyanosis. Buccal mucosa pink and moist and without leukoplakia. Tongue midline with equal elevation of palate bilaterally. No tonsillar hypertrophy, erythema, or exudates noted. dentition noted. NECK - Neck with FROM. Supple to palpation. lymphadenopathy noted. No nuchal rigidity. LUNGS - Chest wall symmetric without accessory muscle use, intercostals retractions, or central cyanosis. Normal vesicular breath sounds CTA B/L. No wheezes, rales, or rhonchi appreciated. CARDIAC - RRR with S1/S2. No murmur, rubs, or gallops appreciated. ABDOMEN - Abdominal contour without pulsations or visible masses. BS normoactive all four quadrants. No tenderness, palpable masses, hepatosplenomegaly, or ascites noted. EXTREMITIES - No clubbing or peripheral cyanosis. No pretibial edema present. +3/5 radial, posterior tibial, and dorsalis pedis pulses palpated throughout. +5/5 strength noted in UE/LE bilaterally. NEUROLOGIC - Cranial nerves II through XII grossly intact. Sensory intact to light touch throughout. Patellar reflexes +2/4. PSYCH - A&Ox3 and cooperates fully with examiner. Pt is very pleasant and interacts well with examiner. Course Administered Medications Clonidine HCl (Catapres) 0.1 mg PO Q4H PRN PRN Reason: Hypertension Stop: 02/24/20 21:54 Last Admin: 01/25/20 22:18 Dose: 0.1 mg Documented by: [id number] Hydromorphone HCl (Dilaudid) 0.5 mg IV Q3H PRN PRN Reason: Pain Stop: 02/06/20 23:47 Last Admin: 01/24/20 09:31 Dose: 0.5 mg Documented by: [id number] Admin: 01/24/20 05:48 Dose: 0.5 mg Documented by: [id number] Ceftriaxone Sodium 2,000 mg/ (Dextrose) 70 mls @ 100 mls/hr IV Q24H MARQUITA; Protocol Stop: 02/03/20 00:59 Last Infusion: 01/25/20 02:08 Dose: 0 mls/hr Documented by: [id number] Admin: 01/25/20 01:21 Dose: 100 mls/hr Documented by: [id number] Infusion: 01/24/20 01:10 Dose: 0 mls/hr Documented by: [id number] Admin: 01/24/20 00:28 Dose: 100 mls/hr Documented by: [id number] Parenteral Electrolytes (Normosol-R) 1,000 mls @ 80 mls/hr IV .[id number] MARQUITA Stop: 01/28/20 19:00 Last Admin: 01/25/20 19:59 Dose: 80 mls/hr Documented by: [id number] Multivitamins (Multivitamin Tab) 1 tab PO DAILY MARQUITA Stop: 02/23/20 08:59 Last Admin: 01/25/20 08:17 Dose: 1 tab Documented by: [id number] Admin: 01/24/20 09:08 Dose: Not Given Documented by: [id number] Ondansetron HCl (Zofran) 4 mg IV Q6H PRN PRN Reason: Nausea Stop: 02/22/20 23:47 Last Admin: 01/24/20 10:25 Dose: 4 mg Documented by: [id number] Admin: 01/24/20 00:29 Dose: 4 mg Documented by: [id number] Tamsulosin HCl (Flomax) 0.4 mg PO DAILY MARQUITA Stop: 02/23/20 08:59 Last Admin: 01/25/20 08:17 Dose: 0.4 mg Documented by: [id number] Admin: 01/24/20 09:08 Dose: 0.4 mg Documented by: [id number] Discontinued Medications Acetaminophen (Tylenol) 650 mg PO Q4H PRN PRN Reason: pain/fever Stop: 02/22/20 23:47 Last Admin: 01/24/20 20:53 Dose: 650 mg Documented by: [id number] Admin: 01/24/20 00:38 Dose: 650 mg Documented by: [id number] Hydromorphone HCl (Dilaudid) 0.5 mg IV NOW STA Stop: 01/23/20 22:01 Last Admin: 01/23/20 22:10 Dose: 0.5 mg Documented by: [id number] Sodium Chloride (Nss 1000ml) 1,000 mls @ 999 mls/hr IV .Q1H1M ONE Stop: 01/23/20 20:23 Last Infusion: 01/23/20 21:42 Dose: 0 mls/hr Documented by: [id number] Admin: 01/23/20 20:11 Dose: 999 mls/hr Documented by: [id number] Sodium Chloride (Nss 1000ml) 1,000 mls @ 999 mls/hr IV .Q1H1M ONE Stop: 01/23/20 21:30 Last Infusion: 01/23/20 22:30 Dose: 0 mls/hr Documented by: [id number] Admin: 01/23/20 20:56 Dose: 999 mls/hr Documented by: [id number] Famotidine 20 mg/ Syringe 5 mls @ 2.5 mls/min IV Q12 MARQUITA Stop: 02/23/20 00:59 Last Admin: 01/25/20 08:17 Dose: Not Given Documented by: [id number] Admin: 01/24/20 20:53 Dose: 2.5 mls/min Documented by: [id number] Admin: 01/24/20 09:08 Dose: Not Given Documented by: [id number] Admin: 01/24/20 00:29 Dose: 2.5 mls/min Documented by: [id number] Sodium Chloride (Nss 1000ml) 1,000 mls @ 100 mls/hr IV .Q10H MARQUITA Stop: 02/22/20 23:47 Last Infusion: 01/24/20 14:10 Dose: 0 mls/hr Documented by: [id number] Admin: 01/24/20 10:18 Dose: 100 mls/hr Documented by: [id number] Infusion: 01/24/20 10:18 Dose: 100 mls/hr Documented by: [id number] Admin: 01/24/20 00:29 Dose: 100 mls/hr Documented by: [id number] Sodium Chloride (Nss 1000ml) 1,000 mls @ 100 mls/hr IV .Q10H MARQUITA Stop: 02/23/20 13:59 Last Infusion: 01/25/20 09:27 Dose: 0 mls/hr Documented by: [id number] Infusion: 01/25/20 07:22 Dose: 100 mls/hr Documented by: [id number] Admin: 01/25/20 01:21 Dose: 80 mls/hr Documented by: [id number] Infusion: 01/25/20 01:21 Dose: 80 mls/hr Documented by: [id number] Admin: 01/24/20 14:10 Dose: 80 mls/hr Documented by: [id number] Parenteral Electrolytes (Normosol-R) 1,000 mls @ 125 mls/hr IV .Q8H MARQUITA Stop: 02/24/20 08:44 Last Infusion: 01/25/20 16:26 Dose: 0 mls/hr Documented by: [id number] Infusion: 01/25/20 15:37 Dose: 0 mls/hr Documented by: [id number] Admin: 01/25/20 09:28 Dose: 125 mls/hr Documented by: [id number] Lorazepam (Ativan) 0.5 mg PO NOW STA Stop: 01/25/20 15:33 Last Admin: 01/25/20 15:45 Dose: 0.5 mg Documented by: [id number] Lorazepam (Ativan) 0.5 mg PO NOW STA Stop: 01/25/20 21:56 Last Admin: 01/25/20 22:14 Dose: 0.5 mg Documented by: [id number] Ondansetron HCl (Zofran) 4 mg IV NOW STA Stop: 01/23/20 19:24 Last Admin: 01/23/20 20:11 Dose: 4 mg Documented by: [id number] Medical Decision Making Differential Diagnosis Appendicitis, testicular torsion, infections, diverticulitis, UTI, obstruction, mesenteric ischemia, aortic pathology, inflammatory bowel disease, renal colic, PUD, pancreatitis, biliary pathology, hernia, volvulus, constipation, as well as other pathologies. Medical Records Attestation: I reviewed the patient's medical records. Home Medications Current Medication List: was personally reviewed by me Laboratory Data Attestation: I reviewed the patient's lab results. Result diagrams: 01/25/20 05:02 01/25/20 11:50 Lab Results 01/23/20 01/23/20 01/23/20 Range/Units 19:52 19:52 19:52 WBC 9.90 (4.8-10.8) K/uL RBC 5.18 (4.7-6.1) M/uL Hgb 16.0 (14.0-18.0) g/dL Hct 45.8 (42-52) % MCV 88.4 (80-100) fL MCH 30.9 (25-34) pg MCHC 34.9 (32-36) g/dL RDW Std Deviation 41.4 (36.4-46.3) fL RDW Coeff of Narayan 12.8 (11.5-14.5) % Plt Count 188 (130-400) K/uL MPV 10.1 (7.4-10.4) fL Immature Gran % (Auto) 0.3 % Neut % (Auto) 81.5 % Lymph % (Auto) 8.8 % Dale % (Auto) 8.7 % Eos % (Auto) 0.6 % Baso % (Auto) 0.1 % Neut # (Auto) 8.07 H (1.4-6.5) K/uL Lymph # (Auto) 0.87 L (1.2-3.4) K/uL Dale # (Auto) 0.86 H (0.11-0.59) K/uL Eos # (Auto) 0.06 (0-0.5) K/uL Baso # (Auto) 0.01 (0-0.2) K/uL Immature Gran # (Auto) 0.03 H (0.00-0.02) K/uL PT 10.7 (9.0-12.0) Seconds INR 1.0 (0.9-1.1) APTT 29.9 (21.0-31.0) Seconds PTT Ratio 1.1 Sodium 141 (136-145) mmol/L Potassium 4.1 (3.5-5.1) mmol/L Chloride 108 H (98-107) mmol/L Carbon Dioxide 25 (21-32) mmol/L Anion Gap 8.0 (3-11) BUN 37 H (7-18) mg/dl Creatinine 3.76 H D (0.6-1.4) mg/dl Est Cr Clr Drug Dosing 21.9 ml/min Est GFR ( Amer) 19.0 Est GFR (Non-Af Amer) 16.4 BUN/Creatinine Ratio 9.7 L (10-20) Glucose 110 H (70-99) mg/dl Calcium 8.1 L (8.5-10.1) mg/dl Total Bilirubin 0.6 (0.2-1) mg/dl AST 18 (15-37) U/L ALT 27 (12-78) U/L Alkaline Phosphatase 63 (45-117) U/L Total Creatine Kinase 65 (39-308) U/L CK-MB (CK-2) < 1.0 (0.5-3.6) ng/ml CK/CKMB % Calc TNP Troponin I < 0.015 (0-0.045) ng/ml Total Protein 6.4 (6.4-8.2) gm/dl Albumin 3.5 (3.4-5.0) gm/dl Globulin 2.9 (2.5-4.0) gm/dl Albumin/Globulin Ratio 1.2 (0.9-2) Lipase 93 (73-393) U/L Imaging Data Radiologist's Impression: [facility] [place] [phone] CT Scan Report Patient: AUGUSTO PINEDA Date: 01/23/20 MR#: [id number]: [address] Acct ID:[id number]: Date: 1960[facility] Zip: [place] [address] Age: 59Location: 3W Sex: M Room/Bed: [facility] Att Phy: Yair Schneider, MDDiagnosis: RIGHT FLANK PAIN Hilary Phy: Marcelino Proctor MDService Date: 01/23/20 [facility] Phy: Marcelino Proctor MDInterpreting Phy: Brett Barrett MD Admit Phy: Andrey Payne MD Ordering Phy: Domingo Salguero MD cc: ~ ABDOMEN AND PELVIS CT WITHOUT CONTRAST CT DOSE: 843.14 mGy.cm HISTORY: Pt c/o Rt sided flank pain TECHNIQUE: Multiaxial CT images of the abdomen and pelvis were performed without contrast. A dose lowering technique was utilized adhering to the principles of ALARA. COMPARISON STUDY: Abdomen and pelvis CT 01/22/2020. FINDINGS: There are few small nonobstructing stones within the right kidney, unchanged. Mild right hydronephrosis secondary to an obstructing 7 mm stone within the proximal right ureter best seen image 45 of 93. There is also unchanged. Right perinephric edema persists. The bladder is unremarkable. Atrophic left kidney, unchanged. Bibasilar linear densities consistent with subsegmental atelectasis. The unenhanced liver, gallbladder, spleen, adrenal glands, and pancreas are unremarkable. No retroperitoneal lymphadenopathy. Suboptimal evaluation for bowel pathology due to the lack of intravenous and oral contrast. However, there is no definite bowel wall thickening or obstruction. Colonic diverticulosis. No evidence for diverticulitis. Normal appendix. IMPRESSION: 1. No change in the 7 mm obstructing stone within the proximal right ureter resulting in mild right hydronephrosis. 2. Stable right-sided nephrolithiasis. 3. Additional findings as described above. ACT 112: Negative or not required by law. Electronically signed by: Brett Barrett M.D. 01/24/2020 7:41 AM Dictated: 01/24/2037 Transcribed: 01/24/20736 [facility], [place] [phone] XRay Report Patient: AUGUSTO PINEDA Date: 01/23/20 MR#: [id number]: [address] [facility] Acct ID:[id number]: Date: 1960[facility] Zip: [place] [address] Age: 59Location: ED Sex: M Room/Bed: Att Phy:Diagnosis: VOMITING, FEVER, CANT EAT OR DRINK, ABD PAIN Hilary Phy: Marcelino Proctor MDService Date: 01/23/20 Fam Phy: Marcelino Proctor MDInterpreting Phy: Wayne Rothman MD Admit Phy: Ordering Phy: Domingo Salguero MD cc: ~ XR chest 1V portable CLINICAL HISTORY: Atypical chest pain COMPARISON STUDY: No previous studies for comparison. FINDINGS: The heart is mildly enlarged. There is no failure. There is no focal pulmonary consolidation. There are no significant pleural effusions. There are left-sided rib fractures, likely old given the absence of a history of trauma and left-sided chest pain[ IMPRESSION: 1. No active disease in the chest. ACT 112: Negative or not required by law. Electronically signed by: Wayne Rothman M.D. 01/23/2020 8:01 PM Dictated: 01/23/201999 Transcribed: 01/23/201999 MDM Narrative This is a 59-year-old male that presents back to the emergency department over concerns of nausea and vomiting not keeping anything down. Patient's creatinine is significantly elevated. Due to this he was sent back for a CAT scan the abdomen pelvis which shows no movement of the kidney stone. I did discuss the case with both urology as well as the hospitalist service who did agree to admit the patient. In the emergency department patient was given Dilaudid as well as Zofran for his pain. Repeat examination revealed improvement the patient's symptoms. Patient is in agreement with the treatment plan. Patient was seen and evaluated as above in room C7. Review was performed of nursing notes and vital signs. I did review pertinent previous visits and patient history. After obtaining a thorough history and physical examination the above work up was performed. While in the department, I personally reevaluated the patient several times and each time the patient was found to be resting comfortably. The patient was educated upon management, educated upon todays findings/results, educated upon importance of follow up from today's visit, educated upon symptoms in which to return, had questions answered prior to discharge, verbalized understanding, and was discharged home in good condition. An order was placed for continuous cardiac monitoring. The monitor shows a rate of 53 with Normal Sinus rhythm. The patient was evaluated during the global COVID-19 pandemic, and that diagnosis was suspected/considered upon their initial presentation. Their evaluation, treatment and testing was consistent with current guidelines for patients who present with complaints or symptoms that may be related to COVID- 19. Impression & Plan Kidney stones, KYLEE (acute kidney injury) Discharge Plan Visit Data *Final* Discharge Date/Time: 01/23/20 23:25 Chief Complaint: Vomiting Stated Complaint: VOMITING, FEVER, CANT EAT OR DRINK, ABD PAIN ED Provider: Domingo Salguero Discharge Problem: Kidney stones, KYLEE (acute kidney injury) Patient Disposition: Admitted As Inpatient Discharge Instructions Interventions: ED Discharge Assessment Last Done: 01/23/20 23:25
[2020-01-26] MEDS: cefTRIAXone SODIUM 2,000 MG in DEXTROSE 5% 50 ML IV SCH (01:34)
[2020-01-26 06:50] LABS: BUN Creatinine Ratio 13.1 (10-20); Calcium 8.3 mg/dl (8.5-10.1); Creatinine Clr Calc Pharmacy 35.6 ml/min; Est GFR (Non-African American) 31.1; Potassium 4.2 mmol/L (3.5-5.1)
[2020-01-26 06:51] LABS: Uric Acid 8.9 mg/dl (2.6-7.2)
[2020-01-26] MEDS: TAMSULOSIN HCL 0.4 MG CAP PO SCH (08:16)
[2020-01-26] MEDS: MULTIVITAMIN TAB PO SCH (08:16)
[2020-01-26] MEDS: cloNIDine HCL 0.1 MG TAB PO PRN (08:20)
[2020-01-26] MEDS: NORMOSOL-R 1,000 ML IV SCH ×2 (09:20→21:54)
[2020-01-26] MEDS: AMLODIPINE BESYLATE 5 MG TAB PO SCH ×2 (10:28→15:52)
--- NOTE | 2020-01-26 13:51 | Nephrology Progress Note ---
Date of Service January 26, 2020 Assessment & Plan (1) ARF (acute renal failure): improving nonoliguric obstructive renal failure after relief with right ureteral stenting . Baseline creatinine 1.1 ( last reading as outpatient March 2019). Presented with creatinine 3.8 on January 22, peak value 4.0 creatinine on January 23. Reading January 24 is 3.3. Volume status appropriate. Mild electrolyte abnormalities Most notably hyperchloremia. no concern about need for [employer]. -daily basic metabolic panel -continue nephrotoxin avoidance -changed normal saline at 100 mL hourly 2 Normosol at 125 mL hourly >> rate lowered per report d/t HTN [facility] is acceptable -Encourage p.o. fluid intake as below -regular diet appropriate at this time -will need outpatient follow-up with me after discharge 4-6 wks (2) Kidney stone: already with left renal atrophy from obstructive uropathy damage due to kidney stones. Longstanding history of stones, historically when I saw him in clinic in the past ( most recently 2015) he had combined 50%calcium oxalate and 50%uric acid nephrolithiasis. -continue goal 80-100 oz minimum daily water intake -await stone pathology currently in process - needs to follow-up with me in clinic after discharge - serum uric acid level ordered for a.m. for completeness - urine pH was 8.0 on presentation and 6.5 on recheck, so uric acid stones less likely here > no indication for urocit (3) Bladder cancer: follows with Dr. Hahn; diagnosed incidentally spring 2018 and per report was T1 G3. Plan had been for surveillance cystoscopy December 2019, then transition to Q 4 months surveillance cystoscopy. last cystoscopy was September 2019 and no tumor seen: December appointment missed and not yet successfully rescheduled - plan had been to reschedule in March for cystoscopy with Jovani -- need to ensure this is done at discharge; earlier date would be better if available Admission and Anticipated Discharge Date Admission Date: January 23, 2020 Subjective feels fine and eager for discharge JOLIE. does later state that flomax causes REID. no edema, no gross hematuria or voiding conerns, no flank pain,no sob or N. Review of Systems Review of Systems: All systems reviewed & are unremarkable except as noted in HPI & below Physical Exam Constitutional: well developed and well nourished; no acute distress Eyes: EOM intact bilaterally ENMT: Ears: no external ear abnormality Nose: no external nose abnormality Mouth: + dry oral mucous membranes Neck: no nuchal rigidity Respiratory: normal respiratory effort Auscultation: lungs clear to auscultation bilaterally and + diminished lung sounds Cardiovascular: Rate/Rhythm: regular rhythm and + bradycardic Extremities: no edema Gastrointestinal (Abdomen): Inspection/Auscultation: normal bowel sounds Percussion/Palpation: abdomen soft; abdomen nontender Musculoskeletal: Extremities: strength 5/5 throughout Skin: no rashes, warm and dry Neurologic: mott, fluent speech, no tremor Psychiatric: Orientation: alert and oriented x 3 Speech: + pressured speech Affect: + anxious affect Results & Data ([facility]) Vital Signs (Past 12 Hours) Vital Signs Temp Pulse Resp BP BP Pulse Ox 01/26/20 10:24 155/88 H 01/26/20 07:42 36.7 C 50 L 18 182/99 H 95 Laboratory Results 01/25/20 05:02 01/26/20 05:49 (1) ARF (acute renal failure) Acute renal failure type: unspecified Qualified Code(s): N17.9 - Acute kidney failure, unspecified (2) Bladder cancer Bladder location: unspecified site Qualified Code(s): C67.9 - Malignant neoplasm of bladder, unspecified
--- NOTE | 2020-01-26 19:06 | Hospitalist Progress Note ---
Date of Service January 26, 2020 Assessment & Plan (1) Kidney stone: (1) Right Ureteral Stone ARF (acute renal failure): per previous attending, Dr. Yair Schneider's notes: ARF (acute renal failure) from obstructing proximal right ureteral kidney stone Renal colic from obstructing proximal right ureteral kidney stone obstructing proximal right ureteral kidney stone -This is a 59-year-old male who presents with renal colic and worsening renal function due to 7 mm obstructing proximal right ureteral kidney stone -patient reports multiple kidney stone problems in the past and he reports in the past he self stopped potassium citrate -baseline creatinine 1.1 but admission creatinine of 1.58 and then next creatinine level was 3.76 -01/24/2020 patient passed the kidney stone around noon and this is sent to the lab, resolution of flank pain after passing the stone. patient does not want KUB because he fears radiation from radiology imaging and because he feels certain he passes the stone. he does not wish to go to OR for cystoscopy or stent. he is now allowed to eat a diet and continued on IV fluids as 80 cc/hr of normal saline -01/25/2020 creatinine coming down slightly to 3.25. He is making urine. The normal saline is increased to 100 cc/hr and plans to repeat lab at noon; he agrees to be seen by nephrology consult. 01/26/20: crea improved further to 2.2 continue IV fluids monitor crea appreciate Nephro consult Possible UTI - on Ceftriaxone HTN - BP uncontrolled start Amlodipine 5mg po daily History of bladder tumor, status post resection and treatment with BCG. Gastroesophageal reflux disease History of myocardial infarction in the past per previous attending, Dr. Yair Schneider's notes: -reported history of heart attack 15 years ago as per patient -in regards to his history of heart attack 15 years ago, he is not on any cardiac medications because at the time he had heart attack while using toxic substances, he reports he is following primary care doctor and no current needs for cardiac medication as per his relationship with his primary care doctor (although he reports self stopping statins in the past on his own accord, so I do not know how much of this is based on outpatient recommendation versus patient's own discretion). He does say he will follow up with his blood pressures which he notes has been somewhat higher in recent past prior to this hospitalization for flank pain from kidney stone. He denies current use of of any toxic recreational drugs or alcohol -sinus bradycardia on admission EKG -was given on IV Pepcid -- no cardiac symptoms today Deep venous thrombosis prophylaxis: Sequential compression devices. Disposition possible d/c home tomorrow when crea further improves Admission and Anticipated Discharge Date Admission Date: January 23, 2020 Subjective ff up for r ureter stone, acute renal failure, HTN, etc seen resting in bed, sitting up, watching tv states he feels fine overall has mild headache, but no chest pain, dyspnea, dizziness, nausea denies pain denies problems with urination no other symptoms Review of Systems Review of Systems: All systems reviewed & are unremarkable except as noted in HPI & below Physical Exam Physical Exam: General- oriented x 3, not in distress, speaks in sentences with no effort or accessory muscle use Eyes- anicteric Neck- no JVD Lungs- clear breath sounds bilaterally, no rales/wheezes Heart- normal rate, regular rhythm; no murmurs Abdomen- normal bowel sounds, nondistended, soft, nontender Extremities- no pretibial edema, no calf tenderness Neuro- alert, oriented x 3; no gross focal neurologic deficits Skin- warm & dry Results & Data Results & Data ([facility]) Vital Signs (Past 12 Hours) Vital Signs Temp Pulse Resp BP BP Pulse Ox 01/26/20 15:16 36.7 C 52 L 16 175/92 H 95 01/26/20 10:24 155/88 H 01/26/20 07:42 36.7 C 50 L 18 182/99 H 95 Laboratory Results Laboratory Results - last 24 hr 01/26/20 05:49 Sodium 143 Potassium 4.2 Chloride 112 H Carbon Dioxide 25 Anion Gap 6.0 BUN 29 H Creatinine 2.22 H D Est Cr Clr Drug Dosing 35.6 Est GFR ( Amer) 36.0 Est GFR (Non-Af Amer) 31.1 BUN/Creatinine Ratio 13.1 Glucose 91 Uric Acid 8.9 H Calcium 8.3 L
--- NOTE | 2020-01-26 19:25 | Electrocardiogram Report ---
Test Reason : Blood Pressure : / mmHG Vent. Rate : 052 BPM Atrial Rate : 052 BPM P-R Int : 202 ms QRS Dur : 094 ms QT Int : 448 ms P-R-T Axes : 047 020 006 degrees QTc Int : 416 ms Sinus bradycardia possible Inferior infarct (cited on or before 23-JAN-2020) Abnormal ECG When compared with ECG of 23-JAN-2020 20:02, No significant change was found Confirmed by Pancho Yo ([id number]) on 01/26/2020 7:25:37 PM Referred By: REFERRED SELF Confirmed By:Mohsen Yo
[2020-01-27] MEDS: cefTRIAXone SODIUM 2,000 MG in DEXTROSE 5% 50 ML IV SCH (00:24)
[2020-01-27 00:58] LABS: Component 2 DNR; Source KIDNEY STONE
[2020-01-27] MEDS: NORMOSOL-R 1,000 ML IV SCH ×2 (07:37→11:10)
[2020-01-27] MEDS: TAMSULOSIN HCL 0.4 MG CAP PO SCH (07:38)
[2020-01-27] MEDS: MULTIVITAMIN TAB PO SCH (08:29)
[2020-01-27] MEDS: AMLODIPINE BESYLATE 5 MG TAB PO SCH (09:18)
[2020-01-27 10:29] LABS: Calcium 8.5 mg/dl (8.5-10.1); Creatinine Clr Calc Pharmacy 40.3 ml/min; Est GFR (African American) 41.8; Est GFR (Non-African American) 36.1
--- NOTE | 2020-01-27 12:56 | Nephrology Progress Note ---
Date of Service January 27, 2020 Assessment & Plan (1) ARF (acute renal failure): Stage III acute kidney injury, clinically improving. Nonoliguric obstructive renal failure after relief with right ureteral stenting . Baseline creatinine 1.1 ( last reading as outpatient March 2019). Presented with creatinine 3.8 on January 22, peak value 4.0 creatinine on January 23. Trending down to 2.0 today. Volume status appropriate, as are electrolytes. 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 -Reasonable for discharge home Discharge recommendations (discharge summary updated) -[facility] medication list currently shows indomethacin as needed gout pain: Recommend discontinuing this and counseling patient to avoid it No NSAIDs, including no indomethacin -Start outpatient amlodipine 5 mg in the evening -continue goal 80-100 oz minimum daily water intake -Nephrology will order basic metabolic panel every 2 weeks until he is seen in nephrology clinic as well as one-time PTH and 25-hydroxy vitamin D and uro-risk and uric acid -note that stone pathology still pending at discharge Please arrange follow-up appointment in kidney clinic [facility] with Dr. White or JAMIE Sánchez in 4 to 6 weeks Patient needs follow-up with Dr. Hahn: He is overdue for surveillance cystoscopy for bladder cancer and also needs follow up for stones (2) Kidney stone: already with left renal atrophy from obstructive uropathy damage due to kidney stones. Longstanding history of stones, historically when I saw him in clinic in the past ( most recently 2015) he had combined 50%calcium oxalate and 50%uric acid nephrolithiasis. -continue goal 80-100 oz minimum daily water intake -no stone path appears to have posted yet - serum uric acid level ordered for a.m. for completeness >> very HIGH but he is off allopurinol - urine pH was 8.0 on presentation and 6.5 on recheck, so uric acid stones less likely here > no indication for urocit (3) Bladder cancer: follows with Dr. Hahn; diagnosed incidentally spring 2018 and per report was T1 G3. Plan had been for surveillance cystoscopy December 2019, then transition to Q 4 months surveillance cystoscopy. last cystoscopy was September 2019 and no tumor seen: December appointment missed and not yet successfully rescheduled - plan had been to reschedule in March for cystoscopy with Jovani -- need to ensure this is done at discharge; earlier date would be better if available (4) Hypertension: not on OP meds for this currently but on review of chart he meets criteria even as an outpatient. Trial of amlodipine 5 mg at bedtime Present on Admission?: Yes Admission and Anticipated Discharge Date Admission Date: January 23, 2020 Subjective No flank pain, no nausea vomiting, no diarrhea. Denies edema or exertional dyspnea. Review of Systems Review of Systems: All systems reviewed & are unremarkable except as noted in HPI & below Physical Exam Constitutional: well developed and well nourished; no acute distress On room air, ambulatory without assist Eyes: EOM intact bilaterally ENMT: Ears: no external ear abnormality Nose: no external nose abnormality Mouth: + dry oral mucous membranes Neck: no nuchal rigidity Respiratory: normal respiratory effort Auscultation: lungs clear to auscultation bilaterally and + diminished lung sounds Cardiovascular: Rate/Rhythm: regular rhythm and + bradycardic Extremities: no edema Gastrointestinal (Abdomen): Inspection/Auscultation: normal bowel sounds Percussion/Palpation: abdomen soft; abdomen nontender Musculoskeletal: Extremities: strength 5/5 throughout Skin: no rashes, warm and dry Psychiatric: Orientation: alert and oriented x 3 Speech: normal rate/rhythm/volume of speech Results & Data ([facility]) Vital Signs (Past 12 Hours) Vital Signs Temp Pulse Resp BP Pulse Ox 01/27/20 07:22 36.5 C 56 L 16 134/83 93 Laboratory Results 01/25/20 05:02 01/27/20 10:00 (1) ARF (acute renal failure) Acute renal failure type: unspecified Qualified Code(s): N17.9 - Acute kidney failure, unspecified (2) Bladder cancer Bladder location: unspecified site Qualified Code(s): C67.9 - Malignant neoplasm of bladder, unspecified
--- NOTE | 2020-01-27 20:43 | Hospitalist Progress Note ---
Date of Service Late entry Date of service noted below January 27, 2020 Assessment & Plan (1) Kidney stone: (1) Right Ureteral Stone ARF (acute renal failure): per previous attending, Dr. Yair Schneider's notes: ARF (acute renal failure) from obstructing proximal right ureteral kidney stone Renal colic from obstructing proximal right ureteral kidney stone obstructing proximal right ureteral kidney stone -This is a 59-year-old male who presents with renal colic and worsening renal function due to 7 mm obstructing proximal right ureteral kidney stone -patient reports multiple kidney stone problems in the past and he reports in the past he self stopped potassium citrate -baseline creatinine 1.1 but admission creatinine of 1.58 and then next creatinine level was 3.76 -01/24/2020 patient passed the kidney stone around noon and this is sent to the lab, resolution of flank pain after passing the stone. patient does not want KUB because he fears radiation from radiology imaging and because he feels certain he passes the stone. he does not wish to go to OR for cystoscopy or stent. he is now allowed to eat a diet and continued on IV fluids as 80 cc/hr of normal saline -01/25/2020 creatinine coming down slightly to 3.25. He is making urine. The normal saline is increased to 100 cc/hr and plans to repeat lab at noon; he agrees to be seen by nephrology consult. 01/26/20: crea improved further to 2.2 continue IV fluids monitor crea appreciate Nephro consult 01/27/2020 Creatinine improved to 1.9 Discussed with nephrology service, okay for discharge today Follow-up with PCP next week, will repeat BMP Instructed patient is to avoid NSAIDs, drink plenty fluids Possible UTI UTI ruled out Received IV ceftriaxone while inpatient HTN - BP uncontrolled started Amlodipine 5mg po daily, with improvement of blood pressure Continue amlodipine 5 mg p.o. as an outpatient Monitor blood pressure upon PCP follow-up History of bladder tumor, status post resection and treatment with BCG. Gastroesophageal reflux disease History of myocardial infarction in the past per previous attending, Dr. Yari Schneider's notes: -reported history of heart attack 15 years ago as per patient -in regards to his history of heart attack 15 years ago, he is not on any cardiac medications because at the time he had heart attack while using toxic substances, he reports he is following primary care doctor and no current needs for cardiac medication as per his relationship with his primary care doctor (although he reports self stopping statins in the past on his own accord, so I do not know how much of this is based on outpatient recommendation versus patient's own discretion). He does say he will follow up with his blood pressures which he notes has been somewhat higher in recent past prior to this hospitalization for flank pain from kidney stone. He denies current use of of any toxic recreational drugs or alcohol -sinus bradycardia on admission EKG -was given on IV Pepcid -- no cardiac symptoms Deep venous thrombosis prophylaxis: Sequential compression devices. Disposition Discharge to home Follow-up with PCP in 1 week Follow-up with health care aide in 4 weeks Follow-up with urologist as scheduled Admission and Anticipated Discharge Date Admission Date: January 23, 2020 Subjective Follow-up for right ureteral stone, hypertension, acute renal failure Seen resting in bed, watching TV, comfortable, in good spirits States he feels much better overall Denies problems with urination No flank or back pain Denies headache, shortness of breath, chest pain, dizziness Ambulating with no problems Denies any other symptoms States he is ready like to be discharged today Review of Systems Review of Systems: All systems reviewed & are unremarkable except as noted in HPI & below Physical Exam Physical Exam: General- oriented x 3, not in distress, speaks in sentences with no effort or accessory muscle use Eyes- anicteric Neck- no JVD Lungs- clear breath sounds, no crackles, no wheezing bilaterally Heart- normal rate, regular rhythm; no murmurs Abdomen- normal bowel sounds, nondistended, soft, nontender Extremities- no pretibial edema, no calf tenderness Neuro- alert, oriented x 3; no gross focal neurologic deficits Skin- warm & dry Results & Data Results & Data ([facility]) Laboratory Results Laboratory Results - last 24 hr 01/25/20 10:46 Stone Source KIDNEY Stone Weight 0.001 Stone Composition SEE NOTE Stone Composition 2 DNR
[2020-01-28 00:59] LABS: Component 2 DNR; Source KIDNEY
--- NOTE | 2020-01-30 18:11 | Discharge Summary ---
Date of Service January 30, 2020 Admission HPI Per Admitting Provider CHIEF COMPLAINT: Right flank pain. 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 History of multiple kidney stones in the past, comes because of right flank pain. The patient was in the ER yesterday with right groin pain and found to have 7 mm obstructing calculus in the right proximal ureter with moderate right hydronephrosis. The patient felt better with the pain medication, UA was trace positive and was sent home on cefdinir. He wanted to go home and he was discharged and patient says after going home, he immediately was nauseous and vomited and could not eat anything, but he slept okay. In the morning, when he woke up he tried to eat banana and he could not keep it down. He was vomiting and could not eat much and even drinking water making him feel heartburn kind of feeling. In the afternoon the pain came back and that has brought him back to the hospital. His creatinine was 1.58 yesterday. His baseline seems to be around 1.1 and today his creatinine jumped up to 3.76 and his CAT scan showing there is no change in the kidney stone. The patient currently requiring pain medications. He said he did not urinate much today, but after getting fluids, he is able to urinate in the ER. Denies any fever, but felt some cold, has a headache that is getting better with the pain medication. No blurred vision, no earache, no runny nose, no sore throat, no cough, no difficulty swallowing, no chest pain, no shortness of breath. Normal bowel movements. He has some hematuria, since couple of days but is getting better. No burning micturition, no swelling in the legs, no rash. Hemodynamics are stable. Admission Exam Per Admitting Provider GENERAL: The patient is obese, not in acute distress. VITAL SIGNS: Temperature 37.5, pulse 61, respiratory rate 18, blood pressure 142/90, oxygen 95% on room air. HEENT: No pallor, no icterus. Oral mucosa dry. NECK: No JVD, no neck masses. CARDIOVASCULAR: S1, S2 heard, regular rate and rhythm, no murmur, no gallop. RESPIRATORY SYSTEM: Normal AP diameter. No accessory muscle use. No wheezing, no crackles. ABDOMEN: Soft, bowel sounds present. Nontender. No CVA tenderness, no guarding, no rigidity. CENTRAL NERVOUS SYSTEM: Cranial nerves II-XII grossly intact. Nonfocal. EXTREMITIES: No edema, no erythema. Principal Diagnosis Right Ureteral Stone with Acute renal failure Discharge Exam General- oriented x 3, not in distress, speaks in sentences with no effort or accessory muscle use Eyes- anicteric Neck- no JVD Lungs- clear breath sounds, no crackles, no wheezing bilaterally Heart- normal rate, regular rhythm; no murmurs Abdomen- normal bowel sounds, nondistended, soft, nontender Extremities- no pretibial edema, no calf tenderness Neuro- alert, oriented x 3; no gross focal neurologic deficits Skin- warm & dry Discharge Data Allergies Allergy/AdvReac Type Severity Reaction Status Date / Time No Known Allergies Allergy Verified 01/23/20 19:53 Consultations 01/23/20 21:11 ED Decision to Admit Stat 01/23/20 23:48 Consult Case Management - Discharge Planning Routine 01/24/20 08:00 Consult Urology Routine 01/24/20 09:32 Consult Anesthesiology Routine 01/25/20 08:06 Consult Nephrology Routine Procedures Performed Operation Date: 01/24/20 13:15 <No data on this case meets the specified criteria> Ordered Studies 01/23/20 19:20 CT abd pelvis wo con Urgent COMPARISON STUDY: Abdomen and pelvis CT 01/22/2020. FINDINGS: There are few small nonobstructing stones within the right kidney, unchanged. Mild right hydronephrosis secondary to an obstructing 7 mm stone within the proximal right ureter best seen image 45 of 93. There is also unchanged. Right perinephric edema persists. The bladder is unremarkable. Atrophic left kidney, unchanged. Bibasilar linear densities consistent with subsegmental atelectasis. The unenhanced liver, gallbladder, spleen, adrenal glands, and pancreas are unremarkable. No retroperitoneal lymphadenopathy. Suboptimal evaluation for bowel pathology due to the lack of intravenous and oral contrast. However, there is no definite bowel wall thickening or o bstruction. Colonic diverticulosis. No evidence for diverticulitis. Normal appendix. IMPRESSION: 1. No change in the 7 mm obstructing stone within the proximal right ureter resulting in mild right hydronephrosis. 2. Stable right-sided nephrolithiasis. 3. Additional findings as described above. Hospital Course (1) Kidney stone: (1) Right Ureteral Stone ARF (acute renal failure): per previous attending, Dr. Yair Schneider's notes: ARF (acute renal failure) from obstructing proximal right ureteral kidney stone Renal colic from obstructing proximal right ureteral kidney stone obstructing proximal right ureteral kidney stone -This is a 59-year-old male who presents with renal colic and worsening renal f unction due to 7 mm obstructing proximal right ureteral kidney stone -patient reports multiple kidney stone problems in the past and he reports in the past he self stopped potassium citrate -baseline creatinine 1.1 but admission creatinine of 1.58 and then next creatinine level was 3.76 -01/24/2020 patient passed the kidney stone around noon and this is sent to the lab, resolution of flank pain after passing the stone. patient does not want KUB because he fears radiation from radiology imaging and because he feels certain he passes the stone. he does not wish to go to OR for cystoscopy or stent. 01/27/2020 Creatinine improved gradually from 3.7 to 1.9 Discussed with nephrology service, okay for discharge today Follow-up with PCP next week, with repeat Basic Metabolic Profile Instructed patient is to avoid NSAIDs, drink plenty fluids follow up with [facility] in 4-6 weeks UTI ruled out Received IV ceftriaxone while inpatient Hypertension - BP uncontrolled started Amlodipine 5mg po daily, with improvement of blood pressure Continue amlodipine 5 mg p.o. as an outpatient Monitor blood pressure upon PCP follow-up History of bladder tumor, status post resection and treatment with BCG. - needs to ff up with [facility] Urologist Dr. Onofre as soon as possible for repeat Cystoscopy Gastroesophageal reflux disease History of myocardial infarction in the past per previous attending, Dr. Yair Schneider's notes: -reported history of heart attack 15 years ago as per patient -in regards to his history of heart attack 15 years ago, he is not on any cardiac medications because at the time he had heart attack while using toxic substances, he reports he is following primary care doctor and no current needs for cardiac medication as per his relationship with his primary care doctor (although he reports self stopping statins in the past on his own accord, so I do not know how much of this is based on outpatient recommendation versus patient's own discretion). He does say he will follow up with his blood pressures which he notes has been somewhat higher in recent past prior to this hospitalization for flank pain from kidney stone. He denies current use of of any toxic recreational drugs or alcohol -sinus bradycardia on admission EKG -was given on IV Pepcid -- no cardiac symptoms Disposition Discharge to home Follow-up with PCP in 1 week Follow-up with taste tester in 4 weeks Follow-up with urologist as soon as possible Total Time Total Time Spent Total Time Spent (In Minutes): > 30 minutes Discharge Plan Discharge Items Patient Disposition: Home - Self-Care Reason For Visit: RIGHT FLANK PAIN Discharge Diagnosis: ARF (acute renal failure) from obstructing proximal right ureteral kidney stone Renal colic from obstructing proximal right ureteral kidney stone Hypertension Activity: Resume your previous activity Activity Comment: Gradually as tolerated, no heavy exertion Driving/Machine Use: Do not drive if you are having pain or weakness Non-emergency contact: Primary Care Provider Call non-emergency contact if: you have any medication questions, your symptoms worsen, your pain is not controlled, your pain is worsening, your pain is unusual for you, your pain is concerning for you and you have a fever Follow-up/Referrals: Brigitte Rivero MD, PhD [Physician] - Marcelino Proctor MD [Primary Care Provider] - 02/03/20 12:20 pm (02/03/2020 12:20 PM Provider Marcelino Proctor MD [facility] ) Jyoti Onofre MD [Physician] - Diet: Heart Healthy, Low Fat and Low Sodium (2gm) Addtl Attending Provider Instructions: YOUR NEW MEDICATION IS AMLODIPINE- TO CONTROL HIGH BLOOD PRESSURE. PLEASE REVIEW YOUR NEW MEDICATION LIST BELOW AND FOLLOW INSTRUCTIONS CAREFULLY. RESUME TAKING ALLOPURINOL 300MG DAILY. DO NOT TAKE MEDICATIONS UNDER THE CLASS OF NSAIDS LIKE IBUPROFEN, NAPROXEN, INDOMETHACIN DRINK PLENTY OF WATER, AT LEAST 80-100 OZ PER DAY. FOLLOW UP WITH PCP : 02/03/2020 12:20 PM Provider Marcelino Proctor MD [facility] FOLLOW UP WITH PLUMBING ASSEMBLER/KIDNEY SPECIALIST DR. BRIGITTE RIVERO IN 4 WEEKS. PLEASE CALL HER OFFICE TO SET UP AN APPOINTMENT. CONTACT INFORMATION OUTLINED ABOVE. FOLLOW UP WITH DR. ONOFRE SOON POSSIBLE. Pending Studies at Discharge: Yes Studies:: 01/24/2020 kidney stone specimen repeat Bloodwork- Basic Metabolic Profile on ff up visit with Primary Care Physician Cystoscopy c/o Dr. Onofre this month Stand-Alone Forms: My [facility] [address], Smoking Cessation Medications and DC Order Prescriptions: New amlodipine [Norvasc] 5 mg Tablet 5 mg PO QAM Qty: 30 RF: 2 allopurinol 300 mg tablet 300 mg PO DAILY Qty: 30 RF: 2 Continued multivitamin Tablet 1 tab PO DAILY RF: 0 tamsulosin [Flomax] 0.4 mg capsule 0.4 mg PO DAILY Qty: 14 RF: 0 oxycodone 5 mg tablet 5 mg PO Q6H PRN (Reason: Pain) RF: 0 Discontinued cefdinir 300 mg capsule 300 mg PO BID 10 Days Qty: 20 RF: 0 Discharge Orders: Discharge Order (Routine); Ordered 01/27/20 Ordered By: Elieser Fernandez/Other Patient Handouts: Amlodipine tablets Admission Data Admit Date/Time: 01/23/20 22:31 Attending Provider: Elieser Burgos Admit Provider: Andrey Payne Primary Care Provider: Marcelino Proctor Other Providers: Andrey Payne ; Darci Cobian ; Brett Epps ; Brigitte Rivero ; Yair Schneider Other Interventions: Discharge Summary Assessment (RN) Last Done: 01/27/20 14:21 DC Date/Time DO NOT enter until pt leaves facility: 01/27/20 15:41
== END 2020-01-27 15:41 | disposition home or self-care (01) | DRG 694 ==
LOC: ED 19:04 → SUATTDRO 22:31 → 3W 22:31

== ENCOUNTER 2020-12-29 11:09 | Inpatient (IN) ==
--- NOTE | 2020-12-29 11:38 | Emergency Department Note ---
Impression & Plan Pneumonia due to COVID-19 virus, Hypoxia ED Provider Note NAME: AUGUSTO PINEDA AGE: 60 SEX: M : 1960 ARRIVES VIA: Ambulance INFORMANT: Patient, EMS ED PROVIDER(S): Domingo Salguero MD CHIEF COMPLAINT: Covid, hypoxia HPI: This 60-year-old male who presents emergency department complaining of shortness of breath. The patient went to his primary care physician's office to follow-up on the diagnosis of Covid. There was concern at the patient's office that he remained hypoxic. The patient reports he has not been on oxygen at home. He was placed on oxygen by EMS. EMS reports that the patient was satting 85% on room air at the doctor's office. Upon arrival to the emergency department the patient remains in the 80s on room air. He was placed on 2 L of oxygen. The patient reports shortness of breath as well as chest pain that has been ongoing since yesterday. The patient reports anytime he exerts himself he gets shortness of breath as well as the chest pain. He reports rest takes the pain away. He describes the pain as an aching sensation with no radiation. He has not taken anything for the pain. He has not taken anything for the fever prior to arrival here today. He reports he was placed on a steroid and has been taking the steroid. He reports taking his steroid this morning however forgot to take the rest of his medications. He has also been on albuterol inhaler as well as azithromycin with no improvement in his symptoms. ROS: See above HPI for pertinent positives & negatives. A total of 10 systems reviewed and were otherwise negative. PAST MEDICAL HISTORY: See Below PAST SURGICAL HISTORY: See Below FAMILY HISTORY: See Below SOCIAL HISTORY: See Below HOME MEDICATIONS: See Below ALLERGIES: See Below VITALS: See Below PHYSICAL EXAMINATION: VITAL SIGNS - Vital signs and nursing notes were reviewed. GENERAL - 60-year-old male appearing stated age who is appears short of breath SKIN - Without rashes. HEAD - NC/AT. EYES - PERRL with EOMI bilaterally. Sclera anicteric. Palpebral conjunctiva pink and moist with no injection noted. EARS - No deformities of external structures noted on gross examination bilaterally. NOSE - Midline and without cyanosis. No epistaxis or purulent drainage noted. Septum midline without deviation or septal hematoma noted. MOUTH/OROPHARYNX - Without perioral cyanosis. Buccal mucosa pink and moist and without leukoplakia. Tongue midline with equal elevation of palate bilaterally. No tonsillar hypertrophy, erythema, or exudates noted. NECK - Neck with FROM. Supple to palpation. No nuchal rigidity. LUNGS - Chest wall symmetric without accessory muscle use, intercostals retractions, or central cyanosis. Normal vesicular breath sounds CTA B/L. No wheezes, rales, or rhonchi appreciated. CARDIAC - RRR with S1/S2. No murmur, rubs, or gallops appreciated. ABDOMEN - Abdominal contour without pulsations or visible masses. BS normoactive all four quadrants. No tenderness, palpable masses, h epatosplenomegaly, or ascites noted. EXTREMITIES - No clubbing or peripheral cyanosis. No pretibial edema present. +3/5 radial, posterior tibial, and dorsalis pedis pulses palpated throughout. +5/5 strength noted in UE/LE bilaterally. NEUROLOGIC - Cranial nerves II through XII grossly intact. Sensory intact to light touch throughout. Patellar reflexes +2/4. PSYCH - A&Ox3 and cooperates fully with examiner. Pt is very pleasant and interacts well with examiner. MEDICAL DECISION MAKING: Patient was seen and evaluated as above in room B8. Review was performed of nursing notes and vital signs. I did review pertinent previous visits and patient history. After obtaining a thorough history and physical examination the above work up was performed. This 60-year-old male who presents emergency department extremely short of breath. The patient was placed on oxygen here. He is positive for Covid. He has already been on outpatient treatments including azithromycin as well as prednisone. This 60-year-old male who presents to the emergency department with a diagnosis of Covid. Despite being on Augmentin Decadron as well as azithromycin the patient continues to be hypoxic. His primary care physician sent him into the emergency department. Patient is hypoxic upon arrival here. I did discuss his case to hospitalist service who did agree to meet the patient. An order was placed for continuous cardiac monitoring. The monitor shows a rate of 60 with Normal SInus rhythm. The patient was evaluated during a period of high volume and high acuity during the global COVID-19 pandemic, and that diagnosis was suspected/considered upon their initial presentation. Their evaluation, treatment and testing was consistent with current guidelines for patients who present with complaints or symptoms that may be related to COVID-19. Patient was seen while provider was wearing PPE. Triage Nursing notes reviewed. Prior medical records reviewed Vital Signs: reviewed and remarkable for hypoxia Differential diagnosis: Reactive airway disease, pneumonia, pneumothorax, COPD, CHF, infections, cardiac ischemia, pulmonary embolism, musculoskeletal, gastrointestinal, as well as other pathologies. ER treatment provided: See below Diagnostics interpreted by me: ECG: EKG shows a normal sinus rhythm possible left atrial enlargement no ST elevation or depression QTC is 433 ventricular rate of 63 EKG is compared to 12/27/2020 and is unchanged. Laboratory studies: As stated above and show below. Imaging studies: See below Consultation(s): Internal Medicine ED COURSE: Critical Care: I have personally spent greater than 30 minutes of critical care time in the direct management of this patient. This includes bedside care, interpretation of diagnostic studies, and testing, discussion with consultants, patient, and family members, and other required patient management activities. This 30 minutes is in excess of all separately billable procedures. Past Med/Surg History Medical History (Updated 12/29/20 @ 13:18 by Sarah Javed PA-C) Anxiety Bladder cancer diagnosed incidentally November 2018, status post December 2018 resection followed by induction BCG Dyslipidemia Gout History of myocardial infarction HTN (hypertension) Kidney stones Renal atrophy, left Right knee meniscal tear Surgical History (Updated 12/29/20 @ 13:18 by Sarah Javed PA-C) H/O lithotripsy H/O right knee surgery History of cardiac cath 1999 Hx of tonsillectomy Family History (Updated 12/29/20 @ 13:21 by Sarah Javed PA-C) Grandfather No problems noted. Father Coronary heart disease Diabetes Cancer Grandmother (Paternal) Cancer Social History (Updated 12/29/20 @ 13:52 by Sarah Javed PA-C) Smoking Status: Former smoker Second Hand Exposure: No; Hx Alcohol Use: No Hx Substance Use: No Preferred Language: Setswana Communication Ability: Effective Analysis Or Research Safety Inspector Required: No Beliefs That Will Affect Care: None Current Living Situation: Other Current Living Situation Comment: lives with ex monica Feels Safe at Home: Yes Assistive Devices: Glasses Allergies Allergies Allergy/AdvReac Type Severity Reaction Status Date / Time No Known Allergies Allergy Verified 06/18/21 12:21 Home Meds Home Medications Medication Instructions Recorded Confirmed multivitamin 1 tab PO DAILY 01/22/20 12/29/20 clindamycin HCl 300 mg PO TID 12/27/20 12/29/20 prednisone 10 mg PO UD 12/27/20 12/29/20 rosuvastatin 5 mg PO DAILY 12/27/20 12/29/20 azithromycin [Zithromax] 500 mg PO QAM 12/29/20 12/29/20 Previous Rx's Medication Instructions Recorded allopurinol 300 mg PO DAILY #30 tab 01/27/20 amlodipine [Norvasc] 5 mg PO QAM #30 tab 01/27/20 Results & Data (ED) Vital Signs Vital Signs - 24 hr 12/29/20 11:19 12/29/20 11:21 12/29/20 11:25 Temperature 37.3 C Temperature Source Oral Pulse Rate 72 63 66 Pulse Rate [Apical] 66 Pulse Rate from SpO2 Sensor 72 64 Respiratory Rate 17 23 22 Respiratory Effort / Characteristics Non-Labored Spontaneous Respiratory Depth Normal Respiratory Pattern Regular Blood Pressure 135/93 135/93 Blood Pressure [Right Arm] 135/93 Blood Pressure Mean 107 107 Blood Pressure Mean [Right Arm] 107 Pulse Oximetry 95 95 95 Oxygen Delivery Method Nasal Cannula Nasal Cannula Nasal Cannula Oxygen Flow Rate 2 2 2 Sepsis Recent Fever Within 48 Hours Yes Sepsis New/Unexplained Change in Mental Status No Sepsis Action Taken by Nursing No Action Required Oxygen Flow Rate - Titration 2 Pulse Oximetry Post Tiitration 95 12/29/20 11:30 12/29/20 11:31 12/29/20 11:47 Temperature Temperature Source Pulse Rate 64 68 76 Pulse Rate [Apical] 76 Pulse Rate from SpO2 Sensor 65 66 Respiratory Rate 24 23 22 Respiratory Effort / Characteristics Non-Labored Spontaneous Respiratory Depth Normal Respiratory Pattern Regular Blood Pressure 119/77 Blood Pressure [Right Arm] 119/77 Blood Pressure Mean 91 Blood Pressure Mean [Right Arm] 91 Pulse Oximetry 94 93 95 Oxygen Delivery Method Nasal Cannula Nasal Cannula Nasal Cannula Oxygen Flow Rate 2 2 2 Sepsis Recent Fever Within 48 Hours Sepsis New/Unexplained Change in Mental Status Sepsis Action Taken by Nursing Oxygen Flow Rate - Titration Pulse Oximetry Post Tiitration 12/29/20 12:00 12/29/20 12:01 12/29/20 12:30 Temperature Temperature Source Pulse Rate 61 61 61 Pulse Rate [Apical] Pulse Rate from SpO2 Sensor 60 61 61 Respiratory Rate 23 20 22 Respiratory Effort / Characteristics Respiratory Depth Respiratory Pattern Blood Pressure 127/78 116/78 Blood Pressure [Right Arm] Blood Pressure Mean 94 90 Blood Pressure Mean [Right Arm] Pulse Oximetry 95 95 96 Oxygen Delivery Method Nasal Cannula Nasal Cannula Nasal Cannula Oxygen Flow Rate 2 2 2 Sepsis Recent Fever Within 48 Hours Sepsis New/Unexplained Change in Mental Status Sepsis Action Taken by Nursing Oxygen Flow Rate - Titration Pulse Oximetry Post Tiitration 12/29/20 12:31 12/29/20 13:00 12/29/20 13:01 Temperature Temperature Source Pulse Rate 59 L 56 L 56 L Pulse Rate [Apical] Pulse Rate from SpO2 Sensor 60 56 L 56 L Respiratory Rate 24 22 22 Respiratory Effort / Characteristics Respiratory Depth Respiratory Pattern Blood Pressure 112/74 Blood Pressure [Right Arm] Blood Pressure Mean 86 Blood Pressure Mean [Right Arm] Pulse Oximetry 95 96 95 Oxygen Delivery Method Nasal Cannula Nasal Cannula Nasal Cannula Oxygen Flow Rate 2 2 2 Sepsis Recent Fever Within 48 Hours Sepsis New/Unexplained Change in Mental Status Sepsis Action Taken by Nursing Oxygen Flow Rate - Titration Pulse Oximetry Post Tiitration 12/29/20 13:38 12/29/20 13:47 Temperature Temperature Source Pulse Rate 66 70 Pulse Rate [Apical] Pulse Rate from SpO2 Sensor 64 70 Respiratory Rate 18 23 Respiratory Effort / Characteristics Respiratory Depth Respiratory Pattern Blood Pressure 138/90 Blood Pressure [Right Arm] Blood Pressure Mean 106 Blood Pressure Mean [Right Arm] Pulse Oximetry 97 97 Oxygen Delivery Method Nasal Cannula Nasal Cannula Oxygen Flow Rate 2 2 Sepsis Recent Fever Within 48 Hours Sepsis New/Unexplained Change in Mental Status Sepsis Action Taken by Nursing Oxygen Flow Rate - Titration Pulse Oximetry Post Tiitration Laboratory Data Result diagrams: 12/29/20 11:30 12/29/20 11:30 Lab Results 12/29/20 12/29/20 12/29/20 Range/Units 11:30 11:30 11:30 WBC 6.94 (4.8-10.8) K/uL RBC 5.04 (4.7-6.1) M/uL Hgb 15.7 (14.0-18.0) g/dL Hct 43.7 (42-52) % MCV 86.7 (80-100) fL MCH 31.2 (25-34) pg MCHC 35.9 (32-36) g/dL RDW Std Deviation 41.8 (36.4-46.3) fL RDW Coeff of Narayan 13.1 (11.5-14.5) % Plt Count 258 (130-400) K/uL MPV 9.5 (7.4-10.4) fL Immature Gran % (Auto) 0.6 % Neut % (Auto) 89.8 % Lymph % (Auto) 5.6 % [place] % (Auto) 3.9 % Eos % (Auto) 0.0 % Baso % (Auto) 0.1 % Neut # (Auto) 6.23 (1.4-6.5) K/uL Lymph # (Auto) 0.39 L (1.2-3.4) K/uL [place] # (Auto) 0.27 (0.11-0.59) K/uL Eos # (Auto) 0.00 (0-0.5) K/uL Baso # (Auto) 0.01 (0-0.2) K/uL Immature Gran # (Auto) 0.04 H (0.00-0.02) K/uL ESR 34 H (0-20) mm/hr PT 10.4 (9.0-12.0) Seconds INR 1.0 (0.9-1.1) APTT 29.1 (21.0-31.0) Seconds PTT Ratio 1.1 D-Dimer 1510 H* (0-500) ug/L FEU Sodium (136-145) mmol/L Potassium (3.5-5.1) mmol/L Chloride (98-107) mmol/L Carbon Dioxide (21-32) mmol/L Anion Gap (3-11) BUN (7-18) mg/dl Creatinine (0.6-1.4) mg/dl Est Cr Clr Drug Dosing ml/min Est GFR ( Amer) ml/min Est GFR (Non-Af Amer) ml/min BUN/Creatinine Ratio (10-20) Glucose (70-99) mg/dl Lactate (0.4-2.0) mmol/L Calcium (8.5-10.1) mg/dl Magnesium (1.8-2.4) mg/dl Ferritin (8-388) ng/ml Total Bilirubin (0.2-1) mg/dl AST (15-37) U/L ALT (12-78) U/L Alkaline Phosphatase (45-117) U/L Lactate Dehydrogenase (87-241) U/L Troponin I (0-0.045) ng/ml C-Reactive Protein (0-0.29) mg/dl Total Protein (6.4-8.2) gm/dl Albumin (3.4-5.0) gm/dl Globulin (2.5-4.0) gm/dl Albumin/Globulin Ratio (0.9-2) Procalcitonin (0-0.5) ng/ml Urine Color Urine Appearance (Clear) Urine pH (4.5-7.5) Ur Specific [place] (1.000-1.030) Urine Protein (Negative) Urine Glucose (UA) (Negative) Urine Ketones (Negative) Urine Blood (Negative) Urine Nitrite (Negative) Urine Bilirubin (Negative) Urine Urobilinogen (Negative) Ur Leukocyte Esterase (Negative) Urine WBC (Auto) (0-5) /hpf Urine RBC (Auto) (0-4) /hpf U Hyaline Cast (Auto) (0-5) /lpf U Epithel Cells (Auto) (0-5) /lpf Urine Bacteria (Auto) (Negative) COVID-19 Eval Order SARS-CoV-2 (PCR) (Negative) Blood Type Antibody Screen 12/29/20 12/29/20 12/29/20 Range/Units 11:30 11:30 11:30 WBC (4.8-10.8) K/uL RBC (4.7-6.1) M/uL Hgb (14.0-18.0) g/dL Hct (42-52) % MCV (80-100) fL MCH (25-34) pg MCHC (32-36) g/dL RDW Std Deviation (36.4-46.3) fL RDW Coeff of Narayan (11.5-14.5) % Plt Count (130-400) K/uL MPV (7.4-10.4) fL Immature Gran % (Auto) % Neut % (Auto) % Lymph % (Auto) % [place] % (Auto) % Eos % (Auto) % Baso % (Auto) % Neut # (Auto) (1.4-6.5) K/uL Lymph # (Auto) (1.2-3.4) K/uL [place] # (Auto) (0.11-0.59) K/uL Eos # (Auto) (0-0.5) K/uL Baso # (Auto) (0-0.2) K/uL Immature Gran # (Auto) (0.00-0.02) K/uL ESR (0-20) mm/hr PT (9.0-12.0) Seconds INR (0.9-1.1) APTT (21.0-31.0) Seconds PTT Ratio D-Dimer (0-500) ug/L FEU Sodium 137 (136-145) mmol/L Potassium 4.0 (3.5-5.1) mmol/L Chloride 106 (98-107) mmol/L Carbon Dioxide 23 (21-32) mmol/L Anion Gap 7.0 (3-11) BUN 21 H (7-18) mg/dl Creatinine 0.89 (0.6-1.4) mg/dl Est Cr Clr Drug Dosing 87.5 ml/min Est GFR ( Amer) 107.0 ml/min Est GFR (Non-Af Amer) 92.3 ml/min BUN/Creatinine Ratio 24.0 H (10-20) Glucose 94 (70-99) mg/dl Lactate (0.4-2.0) mmol/L Calcium 8.6 (8.5-10.1) mg/dl Magnesium 2.2 (1.8-2.4) mg/dl Ferritin 566.7 H (8-388) ng/ml Total Bilirubin 0.9 (0.2-1) mg/dl AST 53 H (15-37) U/L ALT 92 H (12-78) U/L Alkaline Phosphatase 48 (45-117) U/L Lactate Dehydrogenase 303 H (87-241) U/L Troponin I < 0.015 (0-0.045) ng/ml C-Reactive Protein 9.03 H (0-0.29) mg/dl Total Protein 6.7 (6.4-8.2) gm/dl Albumin 3.0 L (3.4-5.0) gm/dl Globulin 3.7 (2.5-4.0) gm/dl Albumin/Globulin Ratio 0.8 L (0.9-2) Procalcitonin < 0.05 (0-0.5) ng/ml Urine Color Urine Appearance (Clear) Urine pH (4.5-7.5) Ur Specific [place] (1.000-1.030) Urine Protein (Negative) Urine Glucose (UA) (Negative) Urine Ketones (Negative) Urine Blood (Negative) Urine Nitrite (Negative) Urine Bilirubin (Negative) Urine Urobilinogen (Negative) Ur Leukocyte Esterase (Negative) Urine WBC (Auto) (0-5) /hpf Urine RBC (Auto) (0-4) /hpf U Hyaline Cast (Auto) (0-5) /lpf U Epithel Cells (Auto) (0-5) /lpf Urine Bacteria (Auto) (Negative) COVID-19 Eval Order SARS-CoV-2 (PCR) (Negative) Blood Type Antibody Screen 12/29/20 12/29/20 12/29/20 Range/Units 11:35 11:35 11:35 WBC (4.8-10.8) K/uL RBC (4.7-6.1) M/uL Hgb (14.0-18.0) g/dL Hct (42-52) % MCV (80-100) fL MCH (25-34) pg MCHC (32-36) g/dL RDW Std Deviation (36.4-46.3) fL RDW Coeff of Narayan (11.5-14.5) % Plt Count (130-400) K/uL MPV (7.4-10.4) fL Immature Gran % (Auto) % Neut % (Auto) % Lymph % (Auto) % [place] % (Auto) % Eos % (Auto) % Baso % (Auto) % Neut # (Auto) (1.4-6.5) K/uL Lymph # (Auto) (1.2-3.4) K/uL [place] # (Auto) (0.11-0.59) K/uL Eos # (Auto) (0-0.5) K/uL Baso # (Auto) (0-0.2) K/uL Immature Gran # (Auto) (0.00-0.02) K/uL ESR (0-20) mm/hr PT (9.0-12.0) Seconds INR (0.9-1.1) APTT (21.0-31.0) Seconds PTT Ratio D-Dimer (0-500) ug/L FEU Sodium (136-145) mmol/L Potassium (3.5-5.1) mmol/L Chloride (98-107) mmol/L Carbon Dioxide (21-32) mmol/L Anion Gap (3-11) BUN (7-18) mg/dl Creatinine (0.6-1.4) mg/dl Est Cr Clr Drug Dosing ml/min Est GFR ( Amer) ml/min Est GFR (Non-Af Amer) ml/min BUN/Creatinine Ratio (10-20) Glucose (70-99) mg/dl Lactate (0.4-2.0) mmol/L Calcium (8.5-10.1) mg/dl Magnesium (1.8-2.4) mg/dl Ferritin (8-388) ng/ml Total Bilirubin (0.2-1) mg/dl AST (15-37) U/L ALT (12-78) U/L Alkaline Phosphatase (45-117) U/L Lactate Dehydrogenase (87-241) U/L Troponin I (0-0.045) ng/ml C-Reactive Protein (0-0.29) mg/dl Total Protein (6.4-8.2) gm/dl Albumin (3.4-5.0) gm/dl Globulin (2.5-4.0) gm/dl Albumin/Globulin Ratio (0.9-2) Procalcitonin (0-0.5) ng/ml Urine Color Yellow Urine Appearance Clear (Clear) Urine pH 5.0 (4.5-7.5) Ur Specific [place] 1.011 (1.000-1.030) Urine Protein Negative (Negative) Urine Glucose (UA) Negative (Negative) Urine Ketones Trace H (Negative) Urine Blood Trace H (Negative) Urine Nitrite Negative (Negative) Urine Bilirubin Negative (Negative) Urine Urobilinogen Negative (Negative) Ur Leukocyte Esterase Negative (Negative) Urine WBC (Auto) 0 (0-5) /hpf Urine RBC (Auto) 0-4 (0-4) /hpf U Hyaline Cast (Auto) 0 (0-5) /lpf U Epithel Cells (Auto) 0-5 (0-5) /lpf Urine Bacteria (Auto) Negative (Negative) COVID-19 Eval Order Covid19 at [facility] SARS-CoV-2 (PCR) POSITIVE A* (Negative) Blood Type Antibody Screen 06/18/21 06/18/21 Range/Units 12:15 12:15 WBC (4.8-10.8) K/uL RBC (4.7-6.1) M/uL Hgb (14.0-18.0) g/dL Hct (42-52) % MCV (80-100) fL MCH (25-34) pg MCHC (32-36) g/dL RDW Std Deviation (36.4-46.3) fL RDW Coeff of Narayan (11.5-14.5) % Plt Count (130-400) K/uL MPV (7.4-10.4) fL Immature Gran % (Auto) % Neut % (Auto) % Lymph % (Auto) % [place] % (Auto) % Eos % (Auto) % Baso % (Auto) % Neut # (Auto) (1.4-6.5) K/uL Lymph # (Auto) (1.2-3.4) K/uL [place] # (Auto) (0.11-0.59) K/uL Eos # (Auto) (0-0.5) K/uL Baso # (Auto) (0-0.2) K/uL Immature Gran # (Auto) (0.00-0.02) K/uL ESR (0-20) mm/hr PT (9.0-12.0) Seconds INR (0.9-1.1) APTT (21.0-31.0) Seconds PTT Ratio D-Dimer (0-500) ug/L FEU Sodium (136-145) mmol/L Potassium (3.5-5.1) mmol/L Chloride (98-107) mmol/L Carbon Dioxide (21-32) mmol/L Anion Gap (3-11) BUN (7-18) mg/dl Creatinine (0.6-1.4) mg/dl Est Cr Clr Drug Dosing ml/min Est GFR ( Amer) ml/min Est GFR (Non-Af Amer) ml/min BUN/Creatinine Ratio (10-20) Glucose (70-99) mg/dl Lactate 0.9 (0.4-2.0) mmol/L Calcium (8.5-10.1) mg/dl Magnesium (1.8-2.4) mg/dl Ferritin (8-388) ng/ml Total Bilirubin (0.2-1) mg/dl AST (15-37) U/L ALT (12-78) U/L Alkaline Phosphatase (45-117) U/L Lactate Dehydrogenase (87-241) U/L Troponin I (0-0.045) ng/ml C-Reactive Protein (0-0.29) mg/dl Total Protein (6.4-8.2) gm/dl Albumin (3.4-5.0) gm/dl Globulin (2.5-4.0) gm/dl Albumin/Globulin Ratio (0.9-2) Procalcitonin (0-0.5) ng/ml Urine Color Urine Appearance (Clear) Urine pH (4.5-7.5) Ur Specific [place] (1.000-1.030) Urine Protein (Negative) Urine Glucose (UA) (Negative) Urine Ketones (Negative) Urine Blood (Negative) Urine Nitrite (Negative) Urine Bilirubin (Negative) Urine Urobilinogen (Negative) Ur Leukocyte Esterase (Negative) Urine WBC (Auto) (0-5) /hpf Urine RBC (Auto) (0-4) /hpf U Hyaline Cast (Auto) (0-5) /lpf U Epithel Cells (Auto) (0-5) /lpf Urine Bacteria (Auto) (Negative) COVID-19 Eval Order SARS-CoV-2 (PCR) (Negative) Blood Type O Positive Antibody Screen NEGATIVE Administered Medications Discontinued Medications Ioversol (Optiray 320 125ml) 120 ml IV ONCE ONE Stop: 12/29/20 13:29 Last Admin: 12/29/20 13:28 Dose: 120 ml Documented by: [id number] Imaging Data Radiologist's Impression: Chest X-Ray 12/29/20 11:28 XR chest 1V portable CLINICAL HISTORY: SEPSIS COMPARISON STUDY: Chest radiograph December 27, 2020. FINDINGS: Lung volumes are at the lower limits of normal. Cardiomediastinal silhouette is stable. Bilateral mid and lower lung airspace opacities persist. The appearance of the chest is similar to prior exam. IMPRESSION: Persistent bilateral airspace opacities which favor an infectious process. Radiographic follow-up to ensure resolution is recommended. ACT 112: Negative or not required by law. Electronically signed by: Bradley Burris M.D. 12/29/2020 12:04 PM Chest CTA 12/29/20 12:14 CT ANGIOGRAPHY OF THE CHEST, PULMONARY EMBOLUS PROTOCOL CLINICAL HISTORY: Shortness of breath. Evaluate for pulmonary embolus. COMPARISON STUDY: Chest CT March 16, 2007. Chest radiograph performed earlier today. TECHNIQUE: Following IV administration of 120 mL of Optiray, helical axial images of the chest were obtained utilizing the pulmonary embolus protocol. Maximal intensity projections and sagittal and coronal reformats were viewed on an independent 3D workstation. IV contrast was administered without complication. Automated exposure control was utilized for the study. A dose lowering technique was utilized adhering to the principles of ALARA. CT DOSE: 548.64 mGycm FINDINGS: No pulmonary emboli are identified although the segmental and subsegmental pulmonary arteries are suboptimally assessed due to respiratory motion. There is mild cardiomegaly. There are multiple mildly enlarged mediastinal and bilateral hilar lymph nodes. Central airways are patent. Extensive groundglass opacities within the lungs are noted. A 6 mm right middle lobe nodule on image 116 of [address] of March 16, 2007. This is benign given stability. No pneumothorax or pleural effusion is noted. No acu te fracture or suspicious lesion is identified within visualized portions of the bony thorax. Upper abdomen is unremarkable. IMPRESSION: 1. No pulmonary emboli identified although segmental and subsegmental pulmonary arteries suboptimally assessed due to respiratory motion. 2. Extensive groundglass opacities within the lungs consistent with an infectious process. This favors viral pneumonia. 3. Multiple mildly enlarged mediastinal and bilateral hilar lymph nodes which are likely reactive. 4. Cardiomegaly. ACT 112: Negative or not required by law. Electronically signed by: Bradley Burris M.D. 12/29/2020 2:00 PM Discharge Plan Visit Data Chief Complaint: Shortness of Breath/Dyspnea Stated Complaint: SOB, COVID + ED Provider: Domingo Salguero Discharge Problem: Pneumonia due to COVID-19 virus, Hypoxia Forms Stand Alone Forms: [employer] Prescriptions Prescriptions: No Action multivitamin Tablet 1 tab PO DAILY RF: 0 amlodipine [Norvasc] 5 mg Tablet 5 mg PO QAM Qty: 30 RF: 2 allopurinol 300 mg tablet 300 mg PO DAILY Qty: 30 RF: 2 azithromycin [Zithromax] 500 mg tablet 500 mg PO QAM RF: 0 prednisone 10 mg tablet 10 mg PO UD RF: 0 clindamycin HCl 300 mg capsule 300 mg PO TID RF: 0 rosuvastatin 5 mg tablet 5 mg PO DAILY RF: 0
[2020-12-29 11:57] LABS: Basophils # (auto) 0.01 K/uL (0-0.2); Basophils % (auto) 0.1 %; Hematocrit (blood only) 43.7 % (42-52); Hemoglobin 15.7 g/dL (14.0-18.0); Immature Granulocytes # (auto) 0.04 K/uL (0.00-0.02); Immature Granulocytes % (auto) 0.6 %; Lymphocytes # (auto) 0.39 K/uL (1.2-3.4); Lymphocytes % (auto) 5.6 %; Mean Corpuscular Hemoglobin 31.2 pg (25-34); Mean Corpuscular Hgb Conc 35.9 g/dL (32-36); Mean Corpuscular Volume 86.7 fL (80-100); Mean Platelet Volume 9.5 fL (7.4-10.4); Monocytes # (auto) 0.27 K/uL (0.11-0.59); Monocytes % (auto) 3.9 %; Neutrophils # (auto) 6.23 K/uL (1.4-6.5); Neutrophils % (auto) 89.8 %; Platelet Count 258 K/uL (130-400); RDW Coefficient of Variation 13.1 % (11.5-14.5); RDW Standard Deviation 41.8 fL (36.4-46.3); Red Blood Count 5.04 M/uL (4.7-6.1); White Blood Count 6.94 K/uL (4.8-10.8)
[2020-12-29 12:01] LABS: Appearance Urine Clear (Clear); Bacteria Urine Automated Negative (Negative); Bilirubin Urine Negative (Negative); Blood Urine Trace (Negative); Cast Urine Automated 0 /lpf (0-5); Color Urine Yellow; Epithelial Cell Urine Auto 0-5 /lpf (0-5); Glucose Urine UA Negative (Negative); Ketones Urine Trace (Negative); Leukocyte Esterase Urine Negative (Negative); Nitrite Urine Negative (Negative); Protein Urine Negative (Negative); RBC Urine Automated 0-4 /hpf (0-4); Specific Gravity Urine 1.011 (1.000-1.030); Urobilinogen Urine Negative (Negative); WBC Urine Automated 0 /hpf (0-5)
--- NOTE | 2020-12-29 12:05 | XRay Report ---
XR chest 1V portable CLINICAL HISTORY: SEPSIS COMPARISON STUDY: Chest radiograph December 27, 2020. FINDINGS: Lung volumes are at the lower limits of normal. Cardiomediastinal silhouette is stable. Shawn ateral mid and lower lung airspace opacities persist. The appearance of the chest is similar to prior exam. IMPRESSION: Persistent bilateral airspace opacities which favor an infectious process. Radiographic follow-up to ensure resolution is recommended. ACT 112: Negative or not required by law. Electronically signed by: Bradley Burris M.D. 12/29/2020 12:04 PM
[2020-12-29 12:09] LABS: Partial Thromboplastin Ratio 1.1; Partial Thromboplastin Time 29.1 Seconds (21.0-31.0); Prothrombin Time 10.4 Seconds (9.0-12.0)
[2020-12-29 12:13] LABS: D Dimer 1510 ug/L FEU (0-500)
[2020-12-29 12:25] LABS: Alanine Aminotransferase 92 U/L (12-78); Aspartate Aminotransferase 53 U/L (15-37); Blood Urea Nitrogen 21 mg/dl (7-18); C Reactive Protein 9.03 mg/dl (0-0.29); Calcium 8.6 mg/dl (8.5-10.1); Carbon Dioxide 23 mmol/L (21-32); Chloride 106 mmol/L (98-107); Creatinine Clr Calc Pharmacy 87.5 ml/min; Est GFR (Non-African American) 92.3 ml/min; Glucose 94 mg/dl (70-99); Magnesium 2.2 mg/dl (1.8-2.4); Sodium 137 mmol/L (136-145)
[2020-12-29 12:30] LABS: Albumin Globulin Ratio 0.8 (0.9-2); Alkaline Phosphatase 48 U/L (45-117); Bilirubin,Total 0.9 mg/dl (0.2-1); Ferritin 566.7 ng/ml (8-388); Globulin 3.7 gm/dl (2.5-4.0); Total Protein 6.7 gm/dl (6.4-8.2); Troponin I < 0.015 ng/ml (0-0.045)
--- NOTE | 2020-12-29 13:01 | History & Physical Report ---
Date of Service December 29, 2020 Assessment & Plan (1) Pneumonia due to COVID-19 virus: (2) Hypoxia: Pt is 60 y/o M with PMH HTN, dyslipidemia, history [place] 1998, GERD, h/o kidney stones, gout, prior heavy alcohol use, no use since 1998 presented to ER with c/o SOB, hypoxia. On 12/14/2020 symptom onset F/C, myalgias, headache, sore throat, SOB, chest pain with exertion, nausea, diarrhea, decreased taste, non productive cough. 12/16 negative COVID-19 test. Was on amoxicillin then clindamycin for dental abscess and tooth extraction. 12/23 +COVID 19 test and started on Prednisone. 12/27/2020[facility] ER CXR consistent with viral pneumonia and patient was started on Zithromax and albuterol. Today sats 84% on RA In ER T: 37.3C, P: 66, R: 22, BP: 135/93, O2 sat: 89% on room air up to 95% on 2 L. Chest x-ray with bilateral airspace opacities. ESR: 34, CRP: 9, lactate: 0.9, Procalcitonin: <0.05, D-dimer: 1510, ferritin: 566, LDH: 303. Negative troponin CTA CHEST: 1. No pulmonary emboli identified although segmental and subsegmental pulmonary arteries suboptimally assessed due to respiratory motion. 2. Extensive groundglass opacities within the lungs consistent with an infectious process. This favors viral pneumonia. 3. Multiple mildly enlarged mediastinal and bilateral hilar lymph nodes which are likely reactive. 4. Cardiomegaly. Admitted supportive care with oxygen supplementation Dexamethasone 6mg IV Hold on further antibiotics at this time as pt with normal procalcitonin and imaging consistent with viral pneumonia CBC, BMP in am VTE prophylaxis with Lovenox SQ (3) HTN (hypertension): Stable Continue amlodipine (4) Dyslipidemia: Continue rosuvastatin (5) Gout: Continue allopurinol (6) History of myocardial infarction: History 1998. Denies SOB, CP DVT Prophylaxis -Lovenox SQ Full Code as per discussion with pt Follows with Dr Proctor for routine care Pt was seen and care coordinated with Dr Nicole. See addendum History of Present Illness Chief Complaint: hypoxia, SOB Primary Care Provider: Marcelino Proctor MD Pt is 60 y/o M with PMH HTN, dyslipidemia, history [place] 1998, GERD, h/o kidney stones, gout, prior heavy alcohol use, no use since 1998 presented to ER with complaint of shortness of breath and hypoxia. On 12/14/2020 patient started with fever, chills, myalgias, headache, sore throat, shortness of breath, nausea, di arrhea, decreased taste, non productive cough. Was seen at PCPs office 12/16 and had negative COVID-19 test at that time. Patient reports was on amoxicillin for dental abscess which was then changed to clindamycin. Had tooth extraction last week. His symptoms continued and had repeat follow-up with PCP on 12/23/2020 and had positive COVID-19 testing. He was placed on prednisone. 12/27/2020 was seen at [facility] ER and chest x-ray consistent with pneumonia and patient was started on Zithromax and albuterol. Has had decreased appetite and decreased oral intake. Reports oxygen saturations 84% at home and having chest pain with exertion so he returned to ER today. He states otherwise he is starting to feel a little better. Denies hematemesis, melena, hematochezia, epistaxis, dizziness, syncope, vision changes, neck pain, palpitations, hemoptysis, choking, otalgia, rhinorrhea, abdominal pain, paresthesias, extremity weakness, extremity edema, rashes, urinary symptoms. In ER T: 37.3C, P: 66, R: 22, BP: 135/93, O2 sat: 89% on room air up to 95% on 2 L. Chest x-ray with bilateral airspace opacities. ESR: 34, CRP: 9, lactate: 0.9, Procalcitonin: <0.05, D-dimer: 1510, ferritin: 566, LDH: 303. Negative troponin CTA chest No PE Patient being admitted for further treatment secondary to COVID-19 pneumonia, hypoxia Allergies Allergy/AdvReac Type Severity Reaction Status Date / Time No Known Allergies Allergy Verified 12/29/20 12:21 Home Medications Medication Instructions Recorded Confirmed Type multivitamin 1 tab PO DAILY 01/22/20 12/29/20 History allopurinol 300 mg PO DAILY #30 tab 01/27/20 12/29/20 Rx amlodipine [Norvasc] 5 mg PO QAM #30 tab 01/27/20 12/29/20 Rx clindamycin HCl 300 mg PO TID 12/27/20 12/29/20 History prednisone 10 mg PO UD 12/27/20 12/29/20 History rosuvastatin 5 mg PO DAILY 12/27/20 12/29/20 History azithromycin [Zithromax] 500 mg PO QAM 12/29/20 12/29/20 History Past Med/Surg History Medical History (Updated 12/29/20 @ 13:18 by Sarah Javed PA-C) Anxiety Bladder cancer diagnosed incidentally November 2018, status post December 2018 resection followed by induction BCG Dyslipidemia Gout History of myocardial infarction HTN (hypertension) Kidney stones Renal atrophy, left Right knee meniscal tear Surgical History (Updated 12/29/20 @ 13:18 by Sarah Javed PA-C) H/O lithotripsy H/O right knee surgery History of cardiac cath 1999 Hx of tonsillectomy Family History (Updated 12/29/20 @ 13:21 by Sarah Javed PA-C) Grandfather No problems noted. Father Coronary heart disease Diabetes Cancer Grandmother (Paternal) Cancer Social History (Updated 12/29/20 @ 13:52 by Sarah Javed PA-C) Smoking Status: Former smoker Second Hand Exposure: No; Hx Alcohol Use: No Hx Substance Use: No Preferred Language: [place] Communication Ability: Effective [place] Required: No Beliefs That Will Affect Care: None Current Living Situation: Other Current Living Situation Comment: lives with ex [place] Other Information That Helps Us Care for You: No Feels Safe at Home: Yes Assistive Devices: Oxygen - Continuous Review of Systems Review of Systems: All systems reviewed & are unremarkable except as noted in HPI & below Physical Exam Physical Exam: PE per Dr Nicole Results & Data Results & Data ([facility]) Vital Signs (Past 12 Hours) Vital Signs Temp Pulse Pulse Resp BP BP Pulse Ox 12/29/20 12:01 61 20 95 12/29/20 12:00 61 23 127/78 95 12/29/20 11:47 76 76 22 119/77 95 12/29/20 11:31 68 23 93 12/29/20 11:30 64 24 119/77 94 12/29/20 11:25 37.3 C 66 66 22 135/93 135/93 95 12/29/20 11:21 63 23 95 12/29/20 11:19 72 17 135/93 95 Laboratory Results Short CBC 12/29/20 Range/Units 11:30 WBC 6.94 (4.8-10.8) K/uL Hgb 15.7 (14.0-18.0) g/dL Hct 43.7 (42-52) % Plt Count 258 (130-400) K/uL BMP 12/29/20 11:30 Sodium 137 Potassium 4.0 Chloride 106 Carbon Dioxide 23 BUN 21 H Creatinine 0.89 Glucose 94 Calcium 8.6 Cardiac Enzymes 12/29/20 Range/Units 11:30 Troponin I < 0.015 (0-0.045) ng/ml Liver Function 12/29/20 Range/Units 11:30 Total Bilirubin 0.9 (0.2-1) mg/dl AST 53 H (15-37) U/L ALT 92 H (12-78) U/L Alkaline Phosphatase 48 (45-117) U/L Albumin 3.0 L (3.4-5.0) gm/dl Urine 12/29/20 Range/Units 11:35 Urine Color Yellow Urine Appearance Clear (Clear) Urine pH 5.0 (4.5-7.5) Ur Specific [place] 1.011 (1.000-1.030) Urine Protein Negative (Negative) Urine Glucose (UA) Negative (Negative) Diagnostic Findings Chest X-Ray 12/29/20 11:28 XR chest 1V portable CLINICAL HISTORY: SEPSIS COMPARISON STUDY: Chest radiograph December 27, 2020. FINDINGS: Lung volumes are at the lower limits of normal. Cardiomediastinal silhouette is stable. Bilateral mid and lower lung airspace opacities persist. The appearance of the chest is similar to prior exam. IMPRESSION: Persistent bilateral airspace opacities which favor an infectious process. Radiographic follow-up to ensure resolution is recommended. ACT 112: Negative or not required by law. Electronically signed by: Bradley Burris M.D. 12/29/2020 12:04 PM Chest CTA 12/29/20 12:14 CT ANGIOGRAPHY OF THE CHEST, PULMONARY EMBOLUS PROTOCOL CLINICAL HISTORY: Shortness of breath. Evaluate for pulmonary embolus. COMPARISON STUDY: Chest CT March 16, 2007. Chest radiograph performed earlier today. TECHNIQUE: Following IV administration of 120 mL of Optiray, helical axial images of the chest were obtained utilizing the pulmonary embolus protocol. Maximal intensity projections and sagittal and coronal reformats were viewed on an independent 3D workstation. IV contrast was administered without complication. Automated exposure control was utilized for the study. A dose lowering technique was utilized adhering to the principles of ALARA. CT DOSE: 548.64 mGycm FINDINGS: No pulmonary emboli are identified although the segmental and subsegmental pulmonary arteries are suboptimally assessed due to respiratory motion. There is mild cardiomegaly. There are multiple mildly enlarged mediastinal and bilateral hilar lymph nodes. Central airways are patent. Extensive groundglass opacities within the lungs are noted. A 6 mm right middle lobe nodule on image 116 of [address] of March 16, 2007. This is benign given stability. No pneumothorax or pleural effusion is noted. No acute fracture or suspicious lesion is identified within visualized portions of the bony thorax. Upper abdomen is unremarkable. IMPRESSION: 1. No pulmonary emboli identified although segmental and subsegmental pulmonary arteries suboptimally assessed due to respiratory motion. 2. Extensive groundglass opacities within the lungs consistent with an infectious process. This favors viral pneumonia. 3. Multiple mildly enlarged mediastinal and bilateral hilar lymph nodes which are likely reactive. 4. Cardiomegaly. ACT 112: Negative or not required by law. Electronically signed by: Bradley Burris M.D. 12/29/2020 2:00 PM ECG Rhythm: sinus rhythm Findings: + Q waves (Inferior) Supervising Physician Co-Signing Physician Notes Acute hypoxic respiratory failure COVID-19 positive test (U07.1, COVID-19) with Acute Pneumonia (J12.89, Other viral pneumonia) If respiratory failure or sepsis present, add as separate assessment) Recent dental infection Patient presents with worsening shortness of breath and cough. Placed on 2 L of oxygen here. WBC is within normal limit. Procalcitonin is not concerning. Will start patient on Decadron. Continue with [employer] clindamycin for his recent dental infection and [employer] Zithromax. General: A&Ox3 HENT: NCAT, MMM, EOMI Eyes: PERRLA Neck: Supple, normal range of motion CVS: normal rate and rhythm Resp: b/l coarse breath sounds Abdomen: Soft, ND/NT, +BS Extremities: No c/c/e Neuro: face symmetric, strength grossly equal, no focal deficit Skin: warm and dry, no rashes/lesions/errythema MSK: no joint swelling/erythema I performed a history and physical examination of the patient on 12/29/20, including specifically H&P. I have discussed the patient's management with the advanced practitioner. Please refer to the JAMIE Govea note for the documented findings and plan of care.
[2020-12-29] MEDS ORDERED: OPTIRAY 320 125ml IV ONE (13:28)
--- NOTE | 2020-12-29 14:02 | CT Scan Report ---
CT ANGIOGRAPHY OF THE CHEST, PULMONARY EMBOLUS PROTOCOL CLINICAL HISTORY: Shortness of breath. Evaluate for pulmonary embolus. COMPARISON STUDY: Chest CT March 16, 2007. Chest radiograph performed earlier today. TECHNIQUE: Following IV administration of 120 mL of Optiray, helical axial images of the chest were o btained utilizing the pulmonary embolus protocol. Maximal intensity projections and sagittal and cor onal reformats were viewed on an independent 3D workstation. IV contrast was administered without co mplication. Automated exposure control was utilized for the study. A dose lowering technique was ut ilized adhering to the principles of ALARA. CT DOSE: 548.64 mGycm FINDINGS: No pulmonary emboli are identified although the segmental and subsegmental pulmonary arter ies are suboptimally assessed due to respiratory motion. There is mild cardiomegaly. There are multip le mildly enlarged mediastinal and bilateral hilar lymph nodes. Central airways are patent. Extensive groundglass opacities within the lungs are noted. A 6 mm right middle lobe nodule on image 116 of [address] of March 16, 2007. This is benign given stability. No pneumothorax or pleu ral effusion is noted. No acute fracture or suspicious lesion is identified within visualized portion s of the bony thorax. Upper abdomen is unremarkable. IMPRESSION: 1. No pulmonary emboli identified although segmental and subsegmental pulmonary arteries suboptimally assessed due to respiratory motion. 2. Extensive groundglass opacities within the lungs consistent with an infectious process. This favor s viral pneumonia. 3. Multiple mildly enlarged mediastinal and bilateral hilar lymph nodes which are likely reactive. 4. Cardiomegaly. ACT 112: Negative or not required by law. Electronically signed by: Bradley Burris M.D. 12/29/2020 2:00 PM
--- NOTE | 2020-12-29 17:03 | Electrocardiogram Report ---
Test Reason : Blood Pressure : / mmHG Vent. Rate : 063 BPM Atrial Rate : 063 BPM P-R Int : 174 ms QRS Dur : 092 ms QT Int : 424 ms P-R-T Axes : 051 031 011 degrees QTc Int : 433 ms Poor data quality, interpretation may be adversely affected Normal sinus rhythm Possible Left atrial enlargement Borderline ECG When compared with ECG of 27-DEC-2020 20:46, No significant change was found Confirmed by Pancho Yo ([id number]) on 12/29/2020 5:02:32 PM Referred By: Marcelino Proctor Confirmed By:Mohsen Yo
[2020-12-29] MEDS ORDERED: ACETAMINOPHEN 325 MG TAB PO PRN (18:18)
[2020-12-29] MEDS ORDERED: ALBUTEROL HFA 8 GM INHALER INH PRN (18:18)
[2020-12-29] MEDS: dexAMETHasone 6 MG in SYRINGE 0 ML IV SCH (19:53)
[2020-12-29] MEDS: ENOXAPARIN INJ 40 MG/0.4 ML SYR SQ SCH (19:54)
[2020-12-30 08:45] LABS: Hematocrit (blood only) 43.3 % (42-52); Hemoglobin 15.4 g/dL (14.0-18.0); Mean Corpuscular Hemoglobin 30.8 pg (25-34); Mean Corpuscular Hgb Conc 35.6 g/dL (32-36); Mean Corpuscular Volume 86.6 fL (80-100); Mean Platelet Volume 9.7 fL (7.4-10.4); Platelet Count 288 K/uL (130-400); RDW Coefficient of Variation 13.1 % (11.5-14.5); RDW Standard Deviation 41.6 fL (36.4-46.3); White Blood Count 7.59 K/uL (4.8-10.8)
[2020-12-30] MEDS: allopurinoL 300 MG TAB PO SCH (09:01)
[2020-12-30] MEDS: amLODIPine BESYLATE 5 MG TAB PO SCH (09:01)
[2020-12-30] MEDS: ROSUVASTATIN CALCIUM 5 MG TAB PO SCH (09:01)
[2020-12-30] MEDS: MULTIVITAMIN TAB PO SCH (09:01)
[2020-12-30] MEDS: dexAMETHasone 6 MG in SYRINGE 0 ML IV SCH (09:01)
[2020-12-30 09:09] LABS: BUN Creatinine Ratio 28.1 (10-20); Creatinine Clr Calc Pharmacy 88.5 ml/min; Est GFR (African American) 107.5 ml/min; Est GFR (Non-African American) 92.7 ml/min; Potassium 4.2 mmol/L (3.5-5.1)
[2020-12-30] MEDS: CLINDAMYCIN HCL 150 MG CAP PO SCH ×2 (14:13→20:28)
--- NOTE | 2020-12-30 15:29 | Hospitalist Progress Note ---
Date of Service December 30, 2020 Assessment & Plan (1) Pneumonia due to COVID-19 virus: (2) Hypoxia: Pt is 60 y/o M with PMH HTN, dyslipidemia, history [place] 1998, GERD, h/o kidney stones, gout, prior heavy alcohol use, no use since 1998 presented to ER with c/o SOB, hypoxia. On 12/14/2020 symptom onset F/C, myalgias, headache, sore throat, SOB, chest pain with exertion, nausea, diarrhea, decreased taste, non productive cough. 12/16 negative COVID-19 test. Was on amoxicillin then clindamycin for dental abscess and tooth extraction. 12/23 +COVID 19 test and started on Prednisone. [facility]/2020[facility] CXR consistent with viral pneumonia and patient was started on Zithromax and albuterol. CTA CHEST: 1. No pulmonary emboli identified although segmental and subsegmental pulmonary arteries suboptimally assessed due to respiratory motion. 2. Extensive groundglass opacities within the lungs consistent with an infectious process. This favors viral pneumonia. 3. Multiple mildly enlarged mediastinal and bilateral hilar lymph nodes which are likely reactive. 4. Cardiomegaly. Acute hypoxic respiratory failure COVID-19 positive test (U07.1, COVID-19) with Acute Pneumonia (J12.89, Other viral pneumonia) (If respiratory failure or sepsis present, add as separate assessment) Recent dental abscess Overall doing okay. Remains 2 L of nasal cannula. Saturating at 90%. States that shortness of breath is much better. Does have intermittent coughing. Remains afebrile. Blood cultures remain negative. WBC is within normal limit. Continue with Decadron, [employer] clindamycin and continue with Zithromax. VTE prophylaxis with Lovenox SQ Plan to wean off the oxygen and possibly discharge in the next 1 to 2 days. (3) HTN (hypertension): Stable Continue amlodipine (4) Dyslipidemia: Continue rosuvastatin (5) Gout: Continue allopurinol (6) History of myocardial infarction: History 1998. Denies SOB, CP DVT Prophylaxis -Lovenox SQ Full Code as per discussion with pt Follows with Dr Proctor for routine care Admission and Anticipated Discharge Date Admission Date: December 29, 2020 Subjective Reports he is feeling better. His shortness of breath is much better. Does have intermittent coughing. Khalida on 2 L of nasal cannula. Reports today is the best he ate in a few days. Denies any diarrhea, nausea or vomiting. Review of Systems Review of Systems: All systems reviewed & are unremarkable except as noted in HPI & below Physical Exam Physical Exam: General: A&Ox3 HENT: NCAT, MMM, EOMI Eyes: PERRLA Neck: Supple, normal range of motion CVS: normal rate and rhythm Resp: b/l coarse breath sounds Abdomen: Soft, ND/NT, +BS Extremities: No c/c/e Neuro: face symmetric, strength grossly equal, no focal deficit Skin: warm and dry, no rashes/lesions/errythema MSK: no joint swelling/erythema Results & Data Results & Data ([facility]) Vital Signs (Past 12 Hours) Vital Signs Temp Pulse Resp BP Pulse Ox 12/30/20 14:00 36.4 C L 57 L 18 109/76 92 12/30/20 08:17 36.7 C 53 L 18 119/76 90
[2020-12-30] MEDS ORDERED: FUROSEMIDE 10 MG in SYRINGE 0 ML IV ONE (15:30)
[2020-12-30] MEDS: AZITHROMYCIN 250 MG TAB PO SCH (17:12)
[2020-12-30] MEDS: ENOXAPARIN INJ 40 MG/0.4 ML SYR SQ SCH (18:17)
[2020-12-31] MEDS: MULTIVITAMIN TAB PO SCH (08:20)
[2020-12-31] MEDS: dexAMETHasone 6 MG in SYRINGE 0 ML IV SCH (08:20)
[2020-12-31] MEDS: amLODIPine BESYLATE 5 MG TAB PO SCH (08:20)
[2020-12-31] MEDS: AZITHROMYCIN 250 MG TAB PO SCH (08:20)
[2020-12-31] MEDS: CLINDAMYCIN HCL 150 MG CAP PO SCH ×3 (08:20→20:13)
[2020-12-31] MEDS: allopurinoL 300 MG TAB PO SCH (08:20)
[2020-12-31] MEDS: ROSUVASTATIN CALCIUM 5 MG TAB PO SCH (10:09)
--- NOTE | 2020-12-31 15:56 | Hospitalist Progress Note ---
Date of Service December 31, 2020 Assessment & Plan (1) Pneumonia due to COVID-19 virus: cont dexamethasone, no indication for remdesivir of conv plasma given length of time of symptoms. Abx wrapping up from recent dental infection. (2) Hypoxia: 2/2 #1 (3) HTN (hypertension): controlled, cont current therapy (4) Dyslipidemia: Continue rosuvastatin (5) Gout: Continue allopurinol (6) History of myocardial infarction: History 1998. Denies SOB, CP (7) DVT prophylaxis: lovenox Full Code Dispo-to home when hypoxia resolves. Venessa Bañuelos DO [facility] Admission and Anticipated Discharge Date Admission Date: December 29, 2020 Subjective 60 yo M presented for hypoxia as a result of covid-19 pnuemonia. He is upset that he thought he was leaving today He feels well but still requires oxygen supplementation We took it off him and he dropped to 86% at rest. He otherwise denies any pain, SOB, or other issues Tolerating PO, No diarrhea, afebrile. Review of Systems Review of Systems: All systems reviewed & are unremarkable except as noted in Subjective Physical Exam Physical Exam: CONSTITUTIONAL: WNWD, vitals as above, generally well- appearing EYES: normal conjunctivae, no scleral icterus ENT: external ear and nose normal, MMM RESPIRATORY: crackles throughout all lung garcia, minimal, no rales or wheezes, normal respiratory effort CARDIOVASCULAR: regular rate and rhythm, S1 and 2 heard without murmurs, gallops or rubs, no JVD, no peripheral edema GASTROINTESTINAL: soft, nontender, nondistended. MUSCULOSKELETAL: strength 5/5 throughout, head is normocephalic and atraumatic, neck supple, normal palpation of chest wall without tenderness SKIN: warm and dry NEUROLOGIC: CN 2-12 grossly intact, normal cognition, normal speech, no tremor PSYCHIATRIC: alert cooperative and oriented to person, place and time. Results & Data Results & Data ([facility]) Vital Signs (Past 12 Hours) Vital Signs Temp Pulse Resp BP Pulse Ox 12/31/20 08:19 36.6 C 59 L 18 108/64 90 Medications Administered Current Inpatient Medications Acetaminophen (Acetaminophen 325 Mg Tab) 650 mg PO Q4H PRN PRN Reason: Pain or Fever Stop: 01/28/21 18:17 Albuterol (Albuterol Hfa 8 Gm Inhaler) 2 puffs INH Q4H PRN PRN Reason: Shortness Of Breath Or Wheezing Stop: 01/28/21 18:17 Allopurinol (Allopurinol 300 Mg Tab) 300 mg PO DAILY [facility] Stop: 01/29/21 08:59 Last Admin: 12/31/20 08:20 Dose: 300 mg Documented by: Amlodipine Besylate (Amlodipine Besylate 5 Mg Tab) 5 mg PO QAM [facility] Stop: 01/29/21 08:59 Last Admin: 12/31/20 08:20 Dose: 5 mg Documented by: Azithromycin (Azithromycin 250 Mg Tab) 500 mg PO QAM [facility]; Protocol Stop: 01/01/21 16:44 Last Admin: 12/31/20 08:20 Dose: 500 mg Documented by: Clindamycin HCl (Clindamycin Hcl 150 Mg Cap) 300 mg PO TID [facility] Stop: 01/01/21 13:59 Last Admin: 12/31/20 13:22 Dose: 300 mg Documented by: Enoxaparin Sodium (Enoxaparin Inj 40 Mg/0.4 Ml Syr) 40 mg SQ Q24H [facility] Stop: 01/28/21 19:14 Last Admin: 12/30/20 18:17 Dose: 40 mg Documented by: Dexamethasone 6 mg/ Syringe 1.5 mls @ 1 mls/min IV DAILY [facility] Stop: 01/08/21 18:17 Last Admin: 12/31/20 08:20 Dose: 1 mls/min Documented by: Multivitamins (Multivitamin Tab) 1 tab PO DAILY [facility] Stop: 01/29/21 08:59 Last Admin: 12/31/20 08:20 Dose: 1 tab Documented by: Rosuvastatin Calcium (Rosuvastatin Calcium 5 Mg Tab) 5 mg PO DAILY [facility] Stop: 01/29/21 08:59 Last Admin: 12/31/20 10:09 Dose: 5 mg Documented by:
[2020-12-31] MEDS: ENOXAPARIN INJ 40 MG/0.4 ML SYR SQ SCH (18:24)
[2021-01-01 07:47] LABS: Hematocrit (blood only) 43.7 % (42-52); Hemoglobin 15.2 g/dL (14.0-18.0); Mean Corpuscular Hemoglobin 30.6 pg (25-34); Mean Corpuscular Hgb Conc 34.8 g/dL (32-36); Mean Corpuscular Volume 88.1 fL (80-100); Mean Platelet Volume 9.5 fL (7.4-10.4); Platelet Count 333 K/uL (130-400); RDW Standard Deviation 41.6 fL (36.4-46.3); Red Blood Count 4.96 M/uL (4.7-6.1); White Blood Count 9.66 K/uL (4.8-10.8)
[2021-01-01 08:24] LABS: BUN Creatinine Ratio 30.8 (10-20); C Reactive Protein 1.6 mg/dl (0-0.29); Calcium 8.7 mg/dl (8.5-10.1); Creatinine Clr Calc Pharmacy 75.5 ml/min; Est GFR (African American) 90.4 ml/min; Magnesium 2.1 mg/dl (1.8-2.4); Potassium 3.7 mmol/L (3.5-5.1)
[2021-01-01] MEDS: dexAMETHasone 6 MG in SYRINGE 0 ML IV SCH (09:08)
[2021-01-01] MEDS: AZITHROMYCIN 250 MG TAB PO SCH (09:09)
[2021-01-01] MEDS: amLODIPine BESYLATE 5 MG TAB PO SCH (09:09)
[2021-01-01] MEDS: MULTIVITAMIN TAB PO SCH (09:09)
[2021-01-01] MEDS: allopurinoL 300 MG TAB PO SCH (09:10)
[2021-01-01] MEDS: ROSUVASTATIN CALCIUM 5 MG TAB PO SCH (09:10)
[2021-01-01] MEDS: CLINDAMYCIN HCL 150 MG CAP PO SCH (09:10)
--- NOTE | 2021-01-01 14:10 | Discharge Summary ---
Date of Service January 01, 2021 Admission HPI Per Admitting Provider Pt is 60 y/o M with PMH HTN, dyslipidemia, history DE 1998, GERD, h/o kidney stones, gout, prior heavy alcohol use, no use since 1998 presented to ER with complaint of shortness of breath and hypoxia. On 12/14/2020 patient started with fever, chills, myalgias, headache, sore throat, shortness of breath, nausea, diarrhea, decreased taste, non productive cough. Was seen at PCPs office 12/16 and had negative COVID-19 test at that time. Patient reports was on amoxicillin for dental abscess which was then changed to clindamycin. Had tooth extraction last week. His symptoms continued and had repeat follow-up with PCP on 12/23/2020 and had positive COVID-19 testing. He was placed on prednisone. 12/27/2020 was seen at [facility] ER and chest x-ray consistent with pneumonia and patient was started on Zithromax and albuterol. Has had decreased appetite and decreased oral intake. Reports oxygen saturations 84% at home and having chest pain with exertion so he returned to ER today. He states otherwise he is starting to feel a little better. Denies hematemesis, melena, hematochezia, epistaxis, dizziness, syncope, vision changes, neck pain, palpitations, hemoptysis, choking, otalgia, rhinorrhea, abdominal pain, paresthesias, extremity weakness, extremity edema, rashes, urinary symptoms. In ER T: 37.3C, P: 66, R: 22, BP: 135/93, O2 sat: 89% on room air up to 95% on 2 L. Chest x-ray with bilateral airspace opacities. ESR: 34, CRP: 9, lactate: 0.9, Procalcitonin: <0.05, D-dimer: 1510, ferritin: 566, LDH: 303. Negative troponin CTA chest No PE Patient being admitted for further treatment secondary to COVID-19 pneumonia, hypoxia Admission Exam Per Admitting Provider General: A&Ox3 HENT: NCAT, MMM, EOMI Eyes: PERRLA Neck: Supple, normal range of motion CVS: normal rate and rhythm Resp: b/l coarse breath sounds Abdomen: Soft, ND/NT, +BS Extremities: No c/c/e Neuro: face symmetric, strength grossly equal, no focal deficit Skin: warm and dry, no rashes/lesions/errythema MSK: no joint swelling/erythema Principal Diagnosis Pneumonia due to COVID-19 virus Hypoxia Discharge Exam CONSTITUTIONAL: WNWD, vitals as above, generally well-appearing EYES: normal conjunctivae, no scleral icterus ENT: external ear and nose normal, MMM RESPIRATORY: clear throughout all lung garcia, minimal, no rales or wheezes, normal respiratory effort CARDIOVASCULAR: regular rate and rhythm, S1 and 2 heard without murmurs, gallops or rubs, no JVD, no peripheral edema GASTROINTESTINAL: soft, nontender, nondistended. MUSCULOSKELETAL: strength 5/5 throughout, head is normocephalic and atraumatic, neck supple, normal palpation of chest wall without tenderness SKIN: warm and dry NEUROLOGIC: CN 2-12 grossly intact, normal cognition, normal speech, no tremor PSYCHIATRIC: alert cooperative and oriented to person, place and time. Discharge Data Allergies Allergy/AdvReac Type Severity Reaction Status Date / Time No Known Allergies Allergy Verified 12/29/20 12:21 Consultations 12/29/20 12:40 ED Decision to Admit Stat Ordered Studies Laboratory Results WBC 9.66 K/uL (4.8-10.8) 01/01/21 07:32 RBC 4.96 M/uL (4.7-6.1) 01/01/21 07:32 Hgb 15.2 g/dL (14.0-18.0) 01/01/21 07:32 Hct 43.7 % (42-52) 01/01/21 07:32 MCV 88.1 fL (80-100) 01/01/21 07:32 MCH 30.6 pg (25-34) 01/01/21 07:32 MCHC 34.8 g/dL (32-36) 01/01/21 07:32 RDW Std Deviation 41.6 fL (36.4-46.3) 01/01/21 07:32 RDW Coeff of Narayan 13.0 % (11.5-14.5) 01/01/21 07:32 Plt Count 333 K/uL (130-400) 01/01/21 07:32 MPV 9.5 fL (7.4-10.4) 01/01/21 07:32 Immature Gran % (Auto) 0.6 % 12/29/20 11:30 Neut % (Auto) 89.8 % 12/29/20 11:30 Lymph % (Auto) 5.6 % 12/29/20 11:30 [place] % (Auto) 3.9 % 12/29/20 11:30 Eos % (Auto) 0.0 % 12/29/20 11:30 Baso % (Auto) 0.1 % 12/29/20 11:30 Neut # (Auto) 6.23 K/uL (1.4-6.5) 12/29/20 11:30 Lymph # (Auto) 0.39 K/uL (1.2-3.4) L 12/29/20 11:30 [place] # (Auto) 0.27 K/uL (0.11-0.59) 12/29/20 11:30 Eos # (Auto) 0.00 K/uL (0-0.5) 12/29/20 11:30 Baso # (Auto) 0.01 K/uL (0-0.2) 12/29/20 11:30 Immature Gran # (Auto) 0.04 K/uL (0.00-0.02) H 12/29/20 11:30 ESR 34 mm/hr (0-20) H 12/29/20 11:30 PT 10.4 Seconds (9.0-12.0) 12/29/20 11:30 INR 1.0 (0.9-1.1) 12/29/20 11:30 APTT 29.1 Seconds (21.0-31.0) 12/29/20 11:30 PTT Ratio 1.1 12/29/20 11:30 D-Dimer 1510 ug/L FEU (0-500) H* 12/29/20 11:30 Sodium 139 mmol/L (136-145) 01/01/21 07:32 Potassium 3.7 mmol/L (3.5-5.1) 01/01/21 07:32 Chloride 108 mmol/L (98-107) H 01/01/21 07:32 Carbon Dioxide 23 mmol/L (21-32) 01/01/21 07:32 Anion Gap 7.0 (3-11) 01/01/21 07:32 BUN 32 mg/dl (7-18) H 01/01/21 07:32 Creatinine 1.03 mg/dl (0.6-1.4) 01/01/21 07:32 Est Cr Clr Drug Dosing 75.5 ml/min 01/01/21 07:32 Est GFR ( Amer) 90.4 ml/min 01/01/21 07:32 Est GFR (Non-Af Amer) 78.0 ml/min 01/01/21 07:32 BUN/Creatinine Ratio 30.8 (10-20) H 01/01/21 07:32 Glucose 71 mg/dl (70-99) 01/01/21 07:32 Lactate 0.9 mmol/L (0.4-2.0) 12/29/20 12:15 Calcium 8.7 mg/dl (8.5-10.1) 01/01/21 07:32 Magnesium 2.1 mg/dl (1.8-2.4) 01/01/21 07:32 Ferritin 566.7 ng/ml (8-388) H 12/29/20 11:30 Total Bilirubin 0.9 mg/dl (0.2-1) 12/29/20 11:30 AST 53 U/L (15-37) H 12/29/20 11:30 ALT 92 U/L (12-78) H 12/29/20 11:30 Alkaline Phosphatase 48 U/L (45-117) 12/29/20 11:30 Lactate Dehydrogenase 303 U/L (87-241) H 12/29/20 11:30 Troponin I < 0.015 ng/ml (0-0.045) 12/29/20 11:30 C-Reactive Protein 1.60 mg/dl (0-0.29) H 01/01/21 07:32 Total Protein 6.7 gm/dl (6.4-8.2) 12/29/20 11:30 Albumin 3.0 gm/dl (3.4-5.0) L 12/29/20 11:30 Globulin 3.7 gm/dl (2.5-4.0) 12/29/20 11:30 Albumin/Globulin Ratio 0.8 (0.9-2) L 12/29/20 11:30 Procalcitonin < 0.05 ng/ml (0-0.5) 01/01/21 07:32 Urine Color Yellow 12/29/20 11:35 Urine Appearance Clear (Clear) 12/29/20 11:35 Urine pH 5.0 (4.5-7.5) 12/29/20 11:35 Ur Specific [place] 1.011 (1.000-1.030) 12/29/20 11:35 Urine Protein Negative (Negative) 12/29/20 11:35 Urine Glucose (UA) Negative (Negative) 12/29/20 11:35 Urine Ketones Trace (Negative) H 12/29/20 11:35 Urine Blood Trace (Negative) H 12/29/20 11:35 Urine Nitrite Negative (Negative) 12/29/20 11:35 Urine Bilirubin Negative (Negative) 12/29/20 11:35 Urine Urobilinogen Negative (Negative) 12/29/20 11:35 Ur Leukocyte Esterase Negative (Negative) 12/29/20 11:35 Urine WBC (Auto) 0 /hpf (0-5) 12/29/20 11:35 Urine RBC (Auto) 0-4 /hpf (0-4) 12/29/20 11:35 U Hyaline Cast (Auto) 0 /lpf (0-5) 12/29/20 11:35 U Epithel Cells (Auto) 0-5 /lpf (0-5) 12/29/20 11:35 Urine Bacteria (Auto) Negative (Negative) 12/29/20 11:35 COVID-19 Eval Order Covid19 at [facility] 12/29/20 11:35 SARS-CoV-2 (PCR) POSITIVE (Negative) A* 12/29/20 11:35 Blood Type O Positive 12/29/20 12:15 Antibody Screen NEGATIVE 12/29/20 12:15 Impressions Chest X-Ray 12/29/20 11:28 XR chest 1V portable CLINICAL HISTORY: SEPSIS COMPARISON STUDY: Chest radiograph December 27, 2020. FINDINGS: Lung volumes are at the lower limits of normal. Cardiomediastinal silhouette is stable. Bilateral mid and lower lung airspace opacities persist. The appearance of the chest is similar to prior exam. IMPRESSION: Persistent bilateral airspace opacities which favor an infectious process. Radiographic follow-up to ensure resolution is recommended. ACT 112: Negative or not required by law. Electronically signed by: Bradley Burris M.D. 12/29/2020 12:04 PM Chest CTA 12/29/20 12:14 CT ANGIOGRAPHY OF THE CHEST, PULMONARY EMBOLUS PROTOCOL CLINICAL HISTORY: Shortness of breath. Evaluate for pulmonary embolus. COMPARISON STUDY: Chest CT March 16, 2007. Chest radiograph performed earlier today. TECHNIQUE: Following IV administration of 120 mL of Optiray, helical axial images of the chest were obtained utilizing the pulmonary embolus protocol. Maximal intensity projections and sagittal and coronal reformats were viewed on an independent 3D workstation. IV contrast was administered without complication. Automated exposure control was utilized for the study. A dose lowering technique was utilized adhering to the principles of ALARA. CT DOSE: 548.64 mGycm FINDINGS: No pulmonary emboli are identified although the segmental and subsegmental pulmonary arteries are suboptimally assessed due to respiratory motion. There is mild cardiomegaly. There are multiple mildly enlarged mediastinal and bilateral hilar lymph nodes. Central airways are patent. Extensive groundglass opacities within the lungs are noted. A 6 mm right middle lobe nodule on image 116 of [address] of March 16, 2007. This is benign given stability. No pneumothorax or pleural effusion is noted. No acute fracture or suspicious lesion is identified within visualized portions of the bony thorax. Upper abdomen is unremarkable. IMPRESSION: 1. No pulmonary emboli identified although segmental and subsegmental pulmonary arteries suboptimally assessed due to respiratory motion. 2. Extensive groundglass opacities within the lungs consistent with an infectious process. This favors viral pneumonia. 3. Multiple mildly enlarged mediastinal and bilateral hilar lymph nodes which are likely reactive. 4. Cardiomegaly. ACT 112: Negative or not required by law. Electronically signed by: Bradley Burris M.D. 12/29/2020 2:00 PM Hospital Course (1) Pneumonia due to COVID-19 virus: cont dexamethasone, no indication for remdesivir of conv plasma given length of time since onset of symptoms. Abx wrapping up from recent dental infection. Not continued at time of discharge. (2) Hypoxia: 2/2 #1 (3) HTN (hypertension): controlled, cont current therapy (4) Dyslipidemia: Continue rosuvastatin (5) Gout: Continue allopurinol (6) History of myocardial infarction: History 1998. Denies SOB, CP (7) DVT prophylaxis: lovenox Full Code Dispo-patient preferred to go home with oxygen and required a small amount with ambulation only, per two-step testing done on the final day of admission. This was provided for him at discharge. Close primary care followup was recommended. Venessa Bañuelos DO [facility] Hospitalist Total Time Total Time Spent Total Time Spent (In Minutes): 60 Total Time Includes: Examination of the Patient, Discharge Planning, Medication Reconciliation and Communication With Other Providers Discharge Plan Discharge Items Patient Disposition: Home - Self-Care Reason For Visit: SOB, COVID + Discharge Diagnosis: Pneumonia due to COVID-19 virus Hypoxia Condition on Discharge: Good Activity: Resume your previous activity Non-emergency contact: Primary Care Provider Call non-emergency contact if: you have any medication questions and your symptoms worsen Follow-up/Referrals: Marcelino Proctor MD [Primary Care Provider] - (Date & Time 01/08/2021 2:00 PM Provider Marcelino Proctor MD [facility] PLEASE NOTE THAT THIS IS A TELEHEALTH APPOINTMENT. PLEASE FOLLOW THE INSTRUCTIONS PROVIDED IN YOUR EMAIL. IF YOU HAVE ANY QUESTIONS REGARDING THIS APPOINTMENT, PLEASE CALL ) Diet: Heart Healthy Addtl Attending Provider Instructions: Please continue all medications as instructed on discharge list below. It is recommended that you follow-up with your primary care doctor within 1 week of discharge to ensure you are still doing well after going home. Please ensure you seek medical attention if your breathing gets worse, you have worsening fever, shortness of breath, chills or any other concerning symptoms. You are being sent home with oxygen to help keep your oxygen saturation 90% or greater at home. Please purchase a pulse ox meter at any local pharmacy. Your primary care doctor will also help guide oxygen therapy on follow-up. Regarding COVID-19 and isolation, it is recommended that you are isolated at home for 10 days after original symptom onset. For more information please visit https://www.cdc.gov/coronavirus/2019-ncov/gh-zvc-mhb-sick/tpz-tuwr-wqnfjsqrn. html You may also visit with a [place] Department of Health website: https://www.health.[place].gov/topics/Documents/[facility]/COVID- 19%20Patient%20Instructions%20for%20Self%20Isolation.pdf It was a pleasure taking care of you! Please call if you have any questions or problems. You can reach a [facility] hospitalist on duty at [facility] 24 hours a day by calling [phone]. Take care of yourself. Venessa Bañuelos DO [facility] Hospitalist Pending Studies at Discharge: No Stand-Alone Forms: [facility] Medications and DC Order Prescriptions: New (DME) Oxygen Home Liters Per Minute See Rx Instructions .ROUTE .COMPLEX Qty: 1 RF: 0 Continued multivitamin Tablet 1 tab PO DAILY RF: 0 amlodipine [Norvasc] 5 mg Tablet 5 mg PO QAM Qty: 30 RF: 2 allopurinol 300 mg tablet 300 mg PO DAILY Qty: 30 RF: 2 rosuvastatin 5 mg tablet 5 mg PO DAILY RF: 0 Discontinued azithromycin [Zithromax] 500 mg tablet 500 mg PO QAM RF: 0 prednisone 10 mg tablet 10 mg PO UD RF: 0 clindamycin HCl 300 mg capsule 300 mg PO TID RF: 0 Discharge Orders: Discharge Order (Routine); Ordered 01/01/21 Ordered By: Venessa Bañuelos Admission Data Admit Date/Time: 12/29/20 14:10 Attending Provider: Venessa Bañuelos Admit Provider: Eliel Nicole Primary Care Provider: Marcelino Proctor Other Interventions: Discharge Summary Assessment (RN) Last Done: 01/01/21 14:57
== END 2021-01-01 16:20 | disposition home or self-care (01) | DRG 177 ==
LOC: ED 11:09 → 2N 14:10 → SUATTDRO 14:10 → 2N 17:29

== ENCOUNTER 2022-03-05 22:58 | Inpatient (IN) ==
[2022-03-05] MEDS ORDERED: SODIUM CHLORIDE 0.9% 1000ML 1,000 ML IV STA (23:14)
[2022-03-05] MEDS ORDERED: KETOROLAC TROMETHAMINE 15 MG/ML VIAL IV STA (23:14)
[2022-03-05] MEDS ORDERED: ONDANSETRON INJ 2 MG/ML 2 ML VIAL IV STA (23:14)
[2022-03-05] MEDS ORDERED: MoRPHine SULFATE 4 MG/ML 1 ML CARP\\VIAL IV STA (23:14)
--- NOTE | 2022-03-06 00:01 | Emergency Department Note ---
History of Present Illness General Chief complaint: Flank Pain Stated complaint: POST OP. BACK PAIN/FLANK PAIN Time Seen by Provider: 03/05/22 23:14 History of Present Illness Maximum Pain Intensity: 8 This 61-year-old presents to the ER complaining of flank pain who had lithotripsy the other day Location: Flank and abdomen Quality: Painful Severity: Moderate Duration: Today Timing: Today Context: Patient was concerned and came in Modifying factors: better with nothing; worse with nothing Patient states he had lithotripsy for stone. He is having severe pain. He did not take his pain medicine today. Dr. Dai did the procedure. Patient denies chest pain, dyspnea, fevers, flulike illness. Home Medications Medication Instructions Recorded Confirmed Type allopurinol 300 mg tablet 300 mg PO DAILY #30 tabs 01/27/20 03/06/22 Rx rosuvastatin 5 mg tablet 5 mg PO DAILY 12/27/20 03/06/22 History Oxygen Home #1 ea 01/01/21 03/06/22 Rx aspirin 81 mg tablet,delayed 81 mg PO DAILY 03/06/22 03/06/22 History release ondansetron HCl 4 mg tablet 4 mg PO Q6 PRN Nausea And Vomiting 03/06/22 03/06/22 History oxycodone-acetaminophen 5 mg-325 1 tab PO UD PRN Pain 03/06/22 03/06/22 History mg tablet tamsulosin 0.4 mg capsule 0.4 mg PO DAILY 03/06/22 03/06/22 History Allergies Allergy/AdvReac Type Severity Reaction Status Date / Time No Known Allergies Allergy Verified 03/06/22 02:55 Past Med/Surg History Medical History Anxiety Bladder cancer diagnosed incidentally November 2018, status post December 2018 resection followed by induction BCG Dyslipidemia Gout History of myocardial infarction HTN (hypertension) Kidney stones Renal atrophy, left Right knee meniscal tear Surgical History H/O lithotripsy H/O right knee surgery History of cardiac cath 1999 Hx of tonsillectomy Family History Grandfather No problems noted. Father Coronary heart disease Diabetes Cancer Grandmother (Paternal) Cancer Social History Smoking Status: Never smoker Second Hand Exposure: No; Hx Alcohol Use: No Hx Substance Use: No Preferred Language: Sudanese Communication Ability: Effective Textile Stylist Required: No Beliefs That Will Affect Care: None Current Living Situation: Other Current Living Situation Comment: lives with ex monica Feels Safe at Home: Yes Assistive Devices: Oxygen - Continuous Review of Systems A total of 10 systems reviewed and were otherwise negative Physical Exam Vital Signs Vital Signs - 24 hr 03/05/22 23:11 03/06/22 02:08 03/06/22 02:09 Temperature 37.4 C Temperature Source Temporal Artery Scan Pulse Rate 77 Pulse Rate [Apical] 66 Respiratory Rate 18 20 Respiratory Effort / Characteristics Non-Labored Spontaneous Non-Labored Spontaneous Respiratory Depth Normal Normal Respiratory Pattern Regular Blood Pressure 184/102 H Blood Pressure [Right Arm] 145/89 H Blood Pressure Mean 129 Blood Pressure Mean [Right Arm] 107 Blood Pressure Position Sitting Blood Pressure Position [Right Arm] Sitting Pulse Oximetry 94 92 92 Oxygen Delivery Method Room Air Room Air Room Air Sepsis Recent Fever Within 48 Hours No Sepsis New/Unexplained Change in Mental Status No Sepsis Action Taken by Nursing No Action Required VITALS: Vitals are noted on the nurse's note and reviewed by myself. Vital si gns reviewed. GENERAL: White male who appears in pain, in no acute distress, nondiaphoretic, well-developed well-nourished. SKIN: The skin was without rashes, erythema, edema, or bruising. There is no tenting of the skin. Capillary reflex less than 2 seconds. HEAD: Normocephalic atraumatic. EARS: External auditory canals clear, EYES: Pupils equal round and reactive to light and accommodation. Conjunctivae without injection, sclerae without icterus. Extraocular movements intact. NOSE: Patent, turbinates without inflammation or discharge. MOUTH: Mucous membranes moist. Pharynx without erythema or exudate. Uvula midline. Airway patent. Tongue does not deviate. NECK: Supple without nuchal rigidity. No lymphadenopathy. No thyromegaly. Cervical spine is nontender. No JVD. HEART: Regular rate and rhythm LUNGS: Clear to auscultation bilaterally without wheezes, rales or rhonchi. No retractions or accessory muscle use. ABDOMEN: Positive bowel sounds x 4. Normal tympanic percussion. Soft, nontender, without masses or organomegaly. Mistry sign negative. No guarding o r rebound tenderness. No CVA tenderness MUSCULOSKELETAL: No muscle atrophy, erythema, or edema noted. NEURO: Patient was alert and oriented to person place and time. Normal sensation to light and sharp touch. No focal neurological deficits. Course Administered Medications Discontinued Medications Sodium Chloride (Nss 1000ml) 1,000 mls @ 999 mls/hr IV .Q1H1M STA Stop: 03/06/22 00:14 Last Infusion: 03/06/22 02:13 Dose: 0 mls/hr Documented By: Admin: 03/06/22 00:21 Dose: 999 mls/hr Documented By: BHAVIN Ioversol (Optiray 300 500ml) 100 ml IV ONCE ONE Stop: 03/06/22 00:56 Last Admin: 03/06/22 00:56 Dose: 86 ml Documented By: BALTAZAR Ketorolac Tromethamine (Ketorolac Tromethamine 15 Mg/Ml Vial) 10 mg IV NOW STA Stop: 03/05/22 23:15 Last Admin: 03/06/22 00:21 Dose: 10 mg Documented By: BHAVIN Morphine Sulfate (Morphine Sulfate 4 Mg/Ml 1 Ml Carp\Vial) 4 mg IV NOW STA Stop: 03/05/22 23:15 Last Admin: 03/06/22 00:21 Dose: 4 mg Documented By: BHAVIN Ondansetron HCl (Ondansetron Inj 2 Mg/Ml 2 Ml Vial) 4 mg IV NOW STA Stop: 03/05/22 23:15 Last Admin: 03/06/22 00:21 Dose: 4 mg Documented By: BHAVIN Medical Decision Making Medical Records Attestation: I reviewed the patient's medical records. Home Medications Current Medication List: was personally reviewed by me Laboratory Data Attestation: I reviewed the patient's lab results. Result diagrams: 03/06/22 00:12 03/06/22 00:12 Lab Results 03/06/22 03/06/22 03/06/22 Range/Units 00:12 00:12 00:50 WBC 14.58 H (4.8-10.8) K/ul RBC 4.66 (4.63-6.08) M/uL Hgb 14.4 (14.0-18.0) g/dl Hct 41.4 (40.1-51.0) % MCV 88.8 (80.0-100.0) fL MCH 30.9 (25.0-34.0) pg MCHC 34.8 (32.0-36.0) g/dL RDW Std Deviation 41.2 (36.4-46.3) fL RDW Coeff of Narayan 12.7 (11.5-14.5) % Plt Count 244 (130-400) K/uL MPV 9.6 (9.4-12.4) fL Immature Gran % (Auto) 0.5 % Neut % (Auto) 84.4 % Lymph % (Auto) 6.6 % Rhea % (Auto) 7.9 % Eos % (Auto) 0.4 % Baso % (Auto) 0.2 % Neut # (Auto) 12.30 H (1.4-6.5) K/uL Lymph # (Auto) 0.96 L (1.2-3.4) K/uL Rhea # (Auto) 1.15 H (0.24-0.82) K/uL Eos # (Auto) 0.06 (0-0.50) K/uL Baso # (Auto) 0.03 (0-0.2) K/uL Immature Gran # (Auto) 0.08 H (0.00-0.02) K/uL Sodium 133 L (136-145) mmol/L Potassium 4.0 (3.5-5.1) mmol/L Chloride 100 (98-107) mmol/L Carbon Dioxide 24 (21-32) mmol/L Anion Gap 9 (3-11) BUN 46 H (6-23) mg/dl Creatinine 2.76 H (0.6-1.4) mg/dl Est Cr Clr Drug Dosing 28.7 ml/min Est GFR ( Amer) 27.3 ml/min Est GFR (Non-Af Amer) 23.5 ml/min BUN/Creatinine Ratio 16.7 (10-20) Glucose 107 H (70-99(Fasting)) mg/dl Calcium 9.1 (8.5-10.1) mg/dl Total Bilirubin 0.9 (0.2-1.0) mg/dl AST 20 (13-39) U/L ALT 13 (7-52) U/L Alkaline Phosphatase 64 (34-104) U/L Total Protein 6.7 (6.0-8.3) gm/dl Albumin 4.4 (3.4-5.0) gm/dl Globulin 2.3 L (2.5-4.0) gm/dl Albumin/Globulin Ratio 1.9 (0.9-2) SARS-CoV-2, RNA, NAAT NEGATIVE (NEGATIVE) Imaging Data Attestation: I personally reviewed and interpreted this imaging study as follows: MDM Narrative Prior records/ancillary studies reviewed. Triage Nursing notes reviewed. Additional history obtained from the family. The patient's history was concerning for flank pain. Differential diagnosis: Etiologies such as renal colic, appendicitis, diverticulitis, mesenteric ischemia, aortic pathology, infections, inflammatory bowel disease, PUD, biliary pathology, UTI, as well as others were entertained. Physical examination findings: As above. ER treatment provided: Morphine Toradol IV fluids were written for On reassessment the patient felt better. Diagnostic interpretation by me: The labs revealed acute kidney injury. Leukocytosis. Urine was not received at time of admission Imaging studies: Preliminary Findings Only See Final Report For Complete Findings CT ABDOMEN & PELVIS With Contrast: Prior noncontrast study today. Right mid ureteral obstructing calculi and mild upstream hydronephrosis as on the prior. Similar perinephric dense material likely represents moderate perinephric/subcapsular hematoma. Somewhat limited evaluation due to non- arterial phase, however no obvious active bleeding or lesion visualized. Compression of the renal parenchyma by the hematoma. Consider follow-up Nonacute findings as on the prior Radiologist: Reed Lee M.D. Consultation: A consultation was placed with the hospitalist. The case was discussed and diagnostics were reviewed. The patient was evaluated in the ER for further treatment. It appears that the patient has isolated renal colic from a right sided stone with subcapsular hematoma of the right kidney most likely from recent lithotripsy . Medicine is consulted. Patient will be admitted. By the evaluation outlined above emergent etiologies such as appendicitis, diverticulitis, mesenteric ischemia, aortic pathology, inflammatory bowel disease, PUD, biliary pathology, as well as others were deemed relatively unlikely. The pt informed about the findings as listed above. All questions were answered and pleased with the treatment. The chart was completed utilizing [employer] Speech voice recognition software. Grammatical errors, random word insertions, pronoun errors, and incomplete sentences are an occassional consequence of this system due to software limitations, ambient noise, and hardware issues. Any formal questions or concerns about the content, text, or information contained within the body of this dictation should be directly addressed to the physician assistant analyst for clarification. Impression & Plan Renal colic on right side, KYLEE (acute kidney injury), Ureterolithiasis, Kidney hematoma Discharge Plan Visit Data Chief Complaint: Flank Pain Stated Complaint: POST OP. BACK PAIN/FLANK PAIN ED Provider: Ze Nguyen ED Midlevel Provider: María Rothman Discharge Problem: Renal colic on right side, KYLEE (acute kidney injury), Ureterolithiasis, Kidney hematoma Patient Disposition: Admitted As Inpatient Condition: Fair Forms Stand Alone Forms: [facility] [place] [employer] Prescriptions Prescriptions: No Action allopurinol 300 mg tablet 300 mg PO DAILY Qty: 30 2RF (DME) Oxygen Home Liters Per Minute See Rx Instructions .ROUTE .COMPLEX Qty: 1 0RF Rx Instructions: 1LPM oxygen supplementation with ambulation ondansetron HCl 4 mg tablet 4 mg PO Q6 PRN (Reason: Nausea And Vomiting) oxycodone-acetaminophen 5-325 mg tablet 1 tab PO UD PRN (Reason: Pain) tamsulosin 0.4 mg capsule 0.4 mg PO DAILY aspirin 81 mg tablet,delayed release (DR/EC) 81 mg PO DAILY rosuvastatin 5 mg tablet 5 mg PO DAILY Referrals Referrals: Marcelino Proctor MD [Primary Care Provider] -
[2022-03-06 00:22] LABS: Basophils # (auto) 0.03 K/uL (0-0.2); Basophils % (auto) 0.2 %; Eosinophils # (auto) 0.06 K/uL (0-0.50); Eosinophils % (auto) 0.4 %; Hematocrit (blood only) 41.4 % (40.1-51.0); Hemoglobin 14.4 g/dl (14.0-18.0); Immature Granulocytes # (auto) 0.08 K/uL (0.00-0.02); Immature Granulocytes % (auto) 0.5 %; Lymphocytes # (auto) 0.96 K/uL (1.2-3.4); Lymphocytes % (auto) 6.6 %; Mean Corpuscular Hemoglobin 30.9 pg (25.0-34.0); Mean Corpuscular Hgb Conc 34.8 g/dL (32.0-36.0); Mean Corpuscular Volume 88.8 fL (80.0-100.0); Mean Platelet Volume 9.6 fL (9.4-12.4); Monocytes # (auto) 1.15 K/uL (0.24-0.82); Monocytes % (auto) 7.9 %; Neutrophils % (auto) 84.4 %; Platelet Count 244 K/uL (130-400); RDW Coefficient of Variation 12.7 % (11.5-14.5); RDW Standard Deviation 41.2 fL (36.4-46.3); Red Blood Count 4.66 M/uL (4.63-6.08); White Blood Count 14.58 K/ul (4.8-10.8)
[2022-03-06] MEDS ORDERED: HYDROmorphone INJ 0.5 MG/0.5 ML SYR IV PRN ×2 (00:23→04:03)
[2022-03-06] MEDS ORDERED: OPTIRAY 300 500mL IV ONE (00:55)
[2022-03-06 00:59] LABS: Albumin Globulin Ratio 1.9 (0.9-2); Albumin Level 4.4 gm/dl (3.4-5.0); BUN Creatinine Ratio 16.7 (10-20); Bilirubin,Total 0.9 mg/dl (0.2-1.0); Calcium 9.1 mg/dl (8.5-10.1); Creatinine Clr Calc Pharmacy 28.7 ml/min; Est GFR (African American) 27.3 ml/min; Est GFR (Non-African American) 23.5 ml/min; Globulin 2.3 gm/dl (2.5-4.0); Total Protein 6.7 gm/dl (6.0-8.3)
[2022-03-06] MEDS ORDERED: oxyCODONE/ACETAMINOPHEN 5mg/325mg TAB PO PRN (04:03)
[2022-03-06] MEDS ORDERED: ONDANSETRON INJ 2 MG/ML 2 ML VIAL IV PRN ×2 (04:03→12:59)
[2022-03-06] MEDS ORDERED: NON-FORMULARY MEDICATION (Oxygen Home Liters per Minute) SCH (04:03)
[2022-03-06] MEDS ORDERED: bisacodyL 10 MG SUPP PR STA (04:03)
[2022-03-06] MEDS ORDERED: LACTULOSE SYRUP 20 GM/30 ML UDC PO STA (04:03)
--- NOTE | 2022-03-06 04:23 | History and Physical Report ---
DATE OF ADMISSION: 03/06/2022. CHIEF COMPLAINT: Right flank pain. HISTORY OF PRESENT ILLNESS: This is a 61-year-old male with past medical history significant for hyperlipidemia, chronic gout, old IA, obstipation, GERD, history of calculus of kidneys, dermatophytosis, bladder cancer incidental diagnosis in 2019 at the time of stone intervention managed with resection and intravesical BCG. No recurrences, presents with left flank pain. Last Friday, the patient had a lithotripsy for the right kidney stone. Since then he has a lot of flank pain. No blood in the urine. No fevers. He thought he was passing a stone, but his pain was worsening and he came to the ER and found to have perinephric subcapsular hematoma, moderate compression of the parenchyma and acute kidney injury The patient resting comfortably, hemodynamically stable. Denies any headache. No blurred vision, no earache, no runny nose, no sore throat, no cough, no chest pain, no shortness of breath, no nausea, no vomiting. He is constipated for the last several days. ALLERGIES: No known drug allergies. PAST MEDICAL HISTORY: As mentioned above. PAST SURGICAL HISTORY: Left heart catheterization, colonoscopies, cysto- ureterolithotripsy of the right side and the left side, cystoscopy, tonsillectomy. MEDICATIONS: The patient is on aspirin 81 mg p.o. daily, allopurinol 300 mg p.o. daily, Zofran p.r.n., oxycodone/acetaminophen 1 tablet p.r.n., rosuvastatin 5 mg p.o. daily, Flomax 0.4 mg p.o. daily. FAMILY HISTORY: Significant for father had throat cancer, diabetes, heart disorder, nephrolithiasis. Paternal grandmother had throat cancer. SOCIAL HISTORY: . Former smoker, quit in . Alcohol, quit in 1998. No drug use. REVIEW OF SYSTEMS: As per HPI. Rest of the review of systems is negative. PHYSICAL EXAMINATION: GENERAL: The patient is of moderate build, not in acute distress. VITAL SIGNS: Temperature 37.4, pulse 66, respiratory rate 20, blood pressure 145/89, oxygen 92% on room air. HEENT: Pupils equal, round and reactive to light. Oral mucosa moist. NECK: No JVD or neck masses. CARDIOVASCULAR: S1 and S2 heard. Regular rate and rhythm. No murmur, no gallop. RESPIRATORY: Normal AP diameter. No accessory muscle use. No wheezing. ABDOMEN: Soft, bowel sounds present, nontender, no distention. No CVA tenderness. CENTRAL NERVOUS SYSTEM: Cranial nerves II-XII grossly intact, nonfocal. EXTREMITIES: No edema, no erythema. LABORATORY DATA: WBC 14.5, hemoglobin 14.4, hematocrit 41.4, platelets 244. Sodium 133, potassium 4, chloride 100, bicarbonate 24, BUN 46, creatinine 2.7, serum glucose 107, calcium 9.1, total bilirubin 0.9, AST 20, ALT 30, alkaline phosphatase 64. SARS-CoV-2 rapid test negative. IMAGING DATA: CT of the abdomen and pelvis preliminary report shows right mid ureteral obstructing calculi and mild upstream hydronephrosis . perinephric dense pattern likely represents moderate perinephric subcapsular hematoma, compression of the renal parenchyma by the hematoma. ASSESSMENT AND PLAN: This is a 61-year-old male who recently had lithotripsy presents with right flank pain. 1. Right flank pain. Perinephric subcapsular hematoma on preliminary report, compression of the renal parenchyma, still has hydronephrosis.We will keep him n.p.o., IV fluids, pain control. Consult Urology in the a.m. for further recommendations. 2. Acute kidney injury. Baseline creatinine is 1.1, currently creatinine of 2.7. Avoid nephrotoxic agents. Getting fluids. Monitor labs. 3. History of gout, on allopurinol. 4. History of coronary artery disease. On aspirin and statin. Currently, we will hold the aspirin for hematoma. Restart as soon as possible. 5. Deep venous thrombosis prophylaxis: Sequential compression devices. DISPOSITION: Closely monitor in the medical floor. PT/OT prior to discharge. Social service to help with discharge planning. Job ID: [id number] [facility]
[2022-03-06 04:30] LABS: Appearance Urine Clear (Clear); Bacteria Urine Automated Negative (Negative); Bilirubin Urine Negative (Negative); Blood Urine 2+ (Negative); Cast Urine Automated 0 /lpf (0-5); Color Urine Yellow; Epithelial Cell Urine Auto 0-5 /lpf (0-5); Glucose Urine UA Negative (Negative); Ketones Urine Negative (Negative); Leukocyte Esterase Urine Negative (Negative); Nitrite Urine Negative (Negative); Protein Urine Negative (Negative); Specific Gravity Urine 1.009 (1.000-1.030); Urobilinogen Urine Negative (Negative)
[2022-03-06] MEDS: D5W AND 1/2NSS 1,000 ML IV SCH ×2 (04:42→15:18)
[2022-03-06 07:13] LABS: Basophils # (auto) 0.03 K/uL (0-0.2); Basophils % (auto) 0.3 %; Eosinophils # (auto) 0.05 K/uL (0-0.50); Eosinophils % (auto) 0.5 %; Hematocrit (blood only) 37.9 % (40.1-51.0); Immature Granulocytes # (auto) 0.04 K/uL (0.00-0.02); Immature Granulocytes % (auto) 0.4 %; Lymphocytes # (auto) 0.78 K/uL (1.2-3.4); Lymphocytes % (auto) 8.2 %; Mean Corpuscular Hemoglobin 30.4 pg (25.0-34.0); Mean Corpuscular Hgb Conc 34.3 g/dL (32.0-36.0); Mean Corpuscular Volume 88.6 fL (80.0-100.0); Mean Platelet Volume 10.1 fL (9.4-12.4); Monocytes # (auto) 0.91 K/uL (0.24-0.82); Monocytes % (auto) 9.5 %; Neutrophils # (auto) 7.74 K/uL (1.4-6.5); Neutrophils % (auto) 81.1 %; Platelet Count 205 K/uL (130-400); RDW Coefficient of Variation 12.8 % (11.5-14.5); RDW Standard Deviation 41.3 fL (36.4-46.3); Red Blood Count 4.28 M/uL (4.63-6.08); White Blood Count 9.55 K/ul (4.8-10.8)
[2022-03-06 08:15] LABS: BUN Creatinine Ratio 15.7 (10-20); Calcium 8.2 mg/dl (8.5-10.1); Creatinine Clr Calc Pharmacy 25.9 ml/min; Est GFR (African American) 24.2 ml/min; Est GFR (Non-African American) 20.9 ml/min; Magnesium 2.1 mg/dl (1.7-2.4); Potassium 3.9 mmol/L (3.5-5.1)
--- NOTE | 2022-03-06 08:34 | CT Scan Report ---
CT SCAN OF THE ABDOMEN AND PELVIS WITHOUT IV CONTRAST CLINICAL HISTORY: Right flank pain. COMPARISON STUDY: Abdominal CT dated 01/23/2020. TECHNIQUE: CT scan of the abdomen and pelvis is performed from the lung bases to the proximal femora. Images are reviewed in the axial, sagittal, and coronal planes. IV contrast was not administered for this examination. A dose lowering technique was utilized adhering to the principles of ALARA. CT DOSE: 1304.43 mGy.cm FINDINGS: Lung bases: The heart is enlarged and without pericardial effusion. The coronary arteries are densely calcified. A small hiatal hernia is noted. Emphysematous change is suggested at the lung bases. Ther e is bibasilar scarring/atelectasis. No airspace consolidation typical for pneumonia or pleural effus ion is identified. A 4 mm pleural-based nodule at the left lung base on image #38 is unchanged from 2 020, as is a 4 mm pleural-based nodule in the right middle lobe seen on image #25. Liver: The unenhanced liver is normal in size, contour, and attenuation. There is no intrahepatic angel iary ductal dilatation. Gallbladder: Unremarkable. Spleen: Normal in size and attenuation. Pancreas: The unenhanced pancreas is grossly unremarkable. Adrenal glands: Unremarkable. Kidneys: There is asymmetric cortical atrophy of the left kidney as compared to the right there is a large subcapsular hemorrhage of the right kidney which measures up to 2.4 cm in thickness. This cause s mass effect on the subjacent renal parenchyma. There are 2 obstructing calculi in the right proxima l ureter seen on images #206 and #212 at the level of L3. These measure up to 5 mm and cause mild to moderate right hydroureteronephrosis. There are at least 2 additional nonobstructing right renal calc freddie which measure up to 4 mm. No left renal calculi are identified and there is no left-sided hydrone phrosis. There is no evidence of contour deforming renal mass lesion. Abdominal vasculature: The abdominal aorta is normal in course and caliber noting mild atheroscleroti c calcification. Bowel: There is mild colonic diverticulosis without CT evidence of acute diverticulitis. No bowel obs truction is seen. The appendix is well-visualized and normal. Peritoneum/retroperitoneum: Fluid is seen tracking inferiorly within the right retroperitoneum relate d to the subcapsular hemorrhage of the right kidney. There is no intraperitoneal free air or abdomina l ascites. There is a small fat-containing umbilical hernia. Lymphadenopathy: None. Pelvic viscera: The bladder, prostate, and seminal vesicles are normal as visualized. Skeletal structures: There is mild lumbosacral spondylosis. No lytic or blastic lesions are seen. IMPRESSION: 1. There are 2 obstructing calculi in the right proximal ureter measuring up to 5 mm. This causes mil d to moderate right hydroureteronephrosis. 2. There is a large subcapsular hemorrhage of the right kidney. This causes mass effect on the subjac ent renal parenchyma 3. There is retroperitoneal extension of the renal hemorrhage tracking inferiorly within the retroper itoneal space. 4. Additional nonobstructing right renal calculi as above. 5. There is asymmetric cortical atrophy of the left kidney as compared to the right. No left renal ca lculi are seen. 6. Mild colonic diverticulosis without CT evidence of acute diverticulitis. 7. Additional findings as above. ACT 112: Negative or not required by law. Electronically signed by: Bret Roman M.D. 03/06/2022 8:31 AM
[2022-03-06] MEDS: ROSUVASTATIN CALCIUM 5 MG TAB PO SCH (08:38)
[2022-03-06] MEDS: TAMSULOSIN HCL 0.4 MG CAP PO SCH (08:38)
[2022-03-06] MEDS: allopurinoL 300 MG TAB PO SCH (08:38)
[2022-03-06] MEDS: POLYETHYLENE (MIRALAX) 17 GM PACK PO PRN (08:39)
--- NOTE | 2022-03-06 08:40 | Urology Consultation ---
Date of Consultation March 06, 2022 Assessment & Plan (1) Ureterolithiasis: (2) KYLEE (acute kidney injury): (3) Kidney hematoma: (4) Renal colic on right side: Plan 61yo M who is s/p lithotripsy for a right renal stone at outside facility on Friday admitted with x2 obstructing right ureteral stones, as well as a right renal perinephric/subcapsular hematoma. - Afebrile and hemodynamically stable. - Labs reviewed - Wbc 9.55, Hgb 13.0, Creatinine 3.05 - Urinalysis on admission with 2+ blood, but otherwise unremarkable. - Plan of care reviewed with Dr. Moyer, on-call urologist. - Given his x2 obstructing stones and KYLEE, will plan to proceed to OR today for cystoscopy, right retrograde pyelogram, right ureteral stent placement with Dr. Moyer. - Risks and benefits to be reviewed with patient by Dr. Moyer. OR notified. COVID negative. Will cover with IV Ancef preoperatively. - Keep NPO. - Continue supportive care. - Urology will follow Supervising Physician Co-Signing Physician Notes Discussed patient with GREYSON. Agree with plan. Patient is status post right lithotripsy with subsequent obstruction from stones as well as a perinephric hematoma. His left kidney is atrophic so he essentia lly has obstruction of a solitary kidney. Significant elevation in creatinine. Risks and benefits discussed and will take to the OR for cystoscopy with right stent placement today. History of Present Illness Reason for Consultation: moderate perinephric/subcapsular hematoma post lit Attending Physician: Chidi Thompson MD History of Present Illness 61-year-old male with past medical history significant for hyperlipidemia, chronic gout, old MD, obstipation, GERD, history of calculus of kidneys, dermatophytosis, bladder cancer incidental diagnosis in 2019 at the time of stone intervention managed with resection and intravesical BCG (no recurrences) who presented to the ED with severe right flank pain. Last Friday, the patient had a lithotripsy for the right kidney stone with Dr. Dai with [facility] urology. Since then he has a lot of flank pain. No blood in the urine. No fevers. He thought he was passing a stone, but his pain was worsening which prompted his ED visit. On arrival, a CT a/p was obtained and notable for an obstructing mid right ureteral calculus and perinephric dense material likely representing a moderate perinephric/subcapsular hematoma. He was afebrile and hemodynamically stable. Labs revealed mild leukocytosis of 14, hemoglobin 14, and creatinine 2.76. Urinalysis with 2+ blood, negative nitrate, negative LE, negative bacteria. He was admitted to medicine for further management. CT abdomen pelvis w/o con - 1. There are 2 obstructing calculi in the right proximal ureter measuring up to 5 mm. This causes mild to moderate right hydroureteronephrosis. 2. There is a large subcapsular hemorrhage of the right kidney. This causes mass effect on the subjacent renal parenchyma 3. There is retroperitoneal extension of the renal hemorrhage tracking inferiorly within the retroperitoneal space. 4. Additional nonobstructing right renal calculi as above. 5. There is asymmetric cortical atrophy of the left kidney as compared to the right. No left renal calculi are seen. 6. Mild colonic diverticulosis without CT evidence of acute diverticulitis. CT abdomen pelvis IV Con- 1. Redemonstration of right subcapsular hematoma which is unchanged in size from prior exam. No active extravasation or new hemorrhage is seen. 2. Obstructive nephrolithiasis on the right is unchanged. Again noted is a diminutive left kidney. 3. Additional findings as above. Patient examined at bedside in the ED this morning. Awake, resting bed on arrival. No acute distress. Right flank pain has improved but notes abdominal pain/bloating this morning. States he has not had a BM in a few days. Denies nausea or vomiting. Denies fevers or chills. Voiding without issue. Denies hematuria and dysuria. Has been NPO other than MiraLAX earlier this morning. Reports he follows with Dr. Hahn of [facility] urology for history of bladder cancer. Had a lithotripsy on Friday with Dr. Dai. Has previously had ureteroscopy's and stents for stone treatment. Allergies Allergy/AdvReac Type Severity Reaction Status Date / Time No Known Allergies Allergy Verified 03/06/22 02:55 Home Medications Medication Instructions Recorded Confirmed Type allopurinol 300 mg tablet 300 mg PO DAILY #30 tabs 01/27/20 03/06/22 Rx rosuvastatin 5 mg tablet 5 mg PO DAILY 12/27/20 03/06/22 History Oxygen Home #1 ea 01/01/21 03/06/22 Rx aspirin 81 mg tablet,delayed 81 mg PO DAILY 03/06/22 03/06/22 History release ondansetron HCl 4 mg tablet 4 mg PO Q6 PRN Nausea And Vomiting 03/06/22 03/06/22 History oxycodone-acetaminophen 5 mg-325 1 tab PO UD PRN Pain 03/06/22 03/06/22 History mg tablet tamsulosin 0.4 mg capsule 0.4 mg PO DAILY 03/06/22 03/06/22 History Patient History Medical History Anxiety Bladder cancer diagnosed incidentally November 2018, status post December 2018 resection followed by induction BCG Dyslipidemia Gout History of myocardial infarction HTN (hypertension) Kidney stones Renal atrophy, left Right knee meniscal tear Surgical History H/O lithotripsy H/O right knee surgery History of cardiac cath 1999 Hx of tonsillectomy Family History Grandfather No problems noted. 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 Beliefs That Will Affect Care: None Current Living Situation: Spouse Current Living Situation Comment: lives with ex monica Other Information That Helps Us Care for You: No Feels Safe at Home: Yes Safety Concerns: Feels Safe At This Time Assistive Devices: None Review of Systems Review of Systems: All systems reviewed & are unremarkable except as noted in HPI & below Physical Exam Constitutional: no acute distress Eyes: PERRL, conjunctivae normal, anicteric sclerae ENMT: external ear and nose normal, oropharynx normal Neck: normal visual inspection Respiratory: normal respiratory effort and able to speak in complete s entences; no respiratory distress and no labored breathing Gastrointestinal (Abdomen): Abd appears mildly distended. Mild tenderness with palpation. Musculoskeletal: Head/Neck/Chest: normocephalic Skin: No visible rashes or lesions to exposed skin areas Neurologic: moves all extremities and awake Psychiatric: Orientation: alert, oriented x 3 and cooperative Genitourinary: no CVA tenderness Results & Data ([facility]) Vital Signs (Past 12 Hours) Vital Signs Temp Pulse Pulse Resp BP BP Pulse Ox 03/06/22 04:47 79 18 143/77 H 98 03/06/22 03:33 63 18 131/79 98 03/06/22 02:09 66 20 145/89 H 92 03/06/22 02:08 92 03/05/22 23:11 37.4 C 77 18 184/102 H 94 O2 Del Method 03/06/22 04:47 Room Air 03/06/22 03:33 Room Air 03/06/22 02:09 Room Air 03/06/22 02:08 Room Air 03/05/22 23:11 Room Air PG Care Time/CCT Total # of Minutes Spent Total Time Spent with Patient: Total time spent is greater than 50% in coordination of care (as documented) at patient's floor/unit and/or counseling patient: Coding Level of Care Code 50797 Inpt Consult Level 4 Diagnoses Ureterolithiasis N20.1 KYLEE (acute kidney injury) N17.9 Kidney hematoma S37.019A Renal colic on right side N23
--- NOTE | 2022-03-06 10:24 | CT Scan Report ---
CT abd pelvis IV con only CLINICAL HISTORY: ? active bleeding TECHNIQUE: Helical axial images of the abdomen and pelvis were obtained and displayed. Automated dose lowering techniques and/or adjustment according to patient size were utilized for this exam. This e xam was performed with intravenous contrast. CT DOSE: 721.13 mGy.cm COMPARISON: Comparison is made to CT abdomen pelvis 03/05/2022 FINDINGS: Lower chest: Bibasilar atelectasis versus scarring is seen. Previously noted pleural-based pulmonary nodules are unchanged. Liver: Unremarkable. No focal lesions are seen. Gallbladder and biliary tree: No calcified gallstones. Normal caliber wall. No intra- or extrahepatic biliary ductal dilation. Pancreas: Unremarkable, no focal lesions. Spleen: Unremarkable. Adrenals: Unremarkable. Kidneys and ureters: Subcapsular hematoma in the right kidney is seen, overall similar in extent cathy uring about 23 mm in greatest thickness. Obstructive stones in the right ureter are unchanged. Nonobs tructive right renal calculi are again noted. The left kidney is noted to be diminutive. Bladder: Unremarkable. Reproductive organs: Prostatic calcifications are seen which may represent prior hemorrhage or granul omatous disease. Bowel: Diverticulosis is seen without evidence of diverticulitis. The appendix is unremarkable. Lymph nodes Retroperitoneal: Unremarkable. Pelvic: Prominent subcentimeter inguinal nodes are noted. Mesenteric: Unremarkable. Peritoneum: Right retroperitoneal stranding is again seen to extend into the right iliac region, unch anged, which may represent findings of hemorrhage. Vessels: Atherosclerotic calcifications are seen. Abdominal wall: Unremarkable. Bones: Degenerative changes in the visualized spine. IMPRESSION: 1. Redemonstration of right subcapsular hematoma which is unchanged in size from prior exam. No acti ve extravasation or new hemorrhage is seen. 2. Obstructive nephrolithiasis on the right is unchanged. Again noted is a diminutive left kidney. 3. Additional findings as above. ACT 112: Negative or not required by law. Electronically signed by: Derrek Gilliam M.D. 03/06/2022 10:22 AM
--- NOTE | 2022-03-06 10:46 | Anesthesiology Consultation ---
Date of Service March 06, 2022 Assessment & Plan (1) Encounter for pre-operative examination: Chart Review Chart Review: Acceptable Risk for Surgery (necessary surgery) and Patient NOT seen in Pre Admission Testing Consults Requested none History Surgery Operation Date: 03/06/22 08:40 Proposed Procedures p Cystoscopy Right Retrograde Pyelogram Stent Placement - Kb Moyer MD Height/Weight Height: 5 ft 6 in Weight: 86.8 kg Allergies Allergy/AdvReac Type Severity Reaction Status Date / Time No Known Allergies Allergy Verified 03/06/22 02:55 Medications Home Medications Medication Instructions Recorded Confirmed Last Taken allopurinol 300 mg tablet 300 mg PO DAILY #30 tabs 01/27/20 03/06/22 Unknown rosuvastatin 5 mg tablet 5 mg PO DAILY 12/27/20 03/06/22 Unknown Oxygen Home #1 ea 01/01/21 03/06/22 Unknown aspirin 81 mg tablet,delayed 81 mg PO DAILY 03/06/22 03/06/22 Unknown release ondansetron HCl 4 mg tablet 4 mg PO Q6 PRN Nausea And Vomiting 03/06/22 03/06/22 Unknown oxycodone-acetaminophen 5 mg-325 1 tab PO UD PRN Pain 03/06/22 03/06/22 Unknown mg tablet tamsulosin 0.4 mg capsule 0.4 mg PO DAILY 03/06/22 03/06/22 Unknown Active Medications Generic Name Dose Route Start Last Admin Trade Name Freq PRN Reason Stop Dose Admin Allopurinol 300 mg 03/06/22 09:00 03/06/22 08:38 Allopurinol 300 Mg Tab PO 04/05/22 08:59 300 mg DAILY MARQUITA Administration Hydromorphone HCl 0.5 mg 03/06/22 04:03 03/06/22 08:37 Hydromorphone Inj 0.5 Mg/0.5 Ml Syr IV 03/20/22 04:02 0.5 mg Q3H PRN Administration Severe Pain Dextrose/Sodium Chloride 1,000 mls @ 125 mls/hr 03/06/22 04:03 03/06/22 04:42 D5w And 1/2nss IV 03/06/22 20:02 125 mls/hr .Q8H MARQUITA Administration Polyethylene Glycol 17 gm 03/06/22 04:03 03/06/22 08:39 Polyethylene (Miralax) 17 Gm Pack PO 04/05/22 04:02 17 gm DAILY PRN Administration Constipation Rosuvastatin Calcium 5 mg 03/06/22 09:00 03/06/22 08:38 Rosuvastatin Calcium 5 Mg Tab PO 04/05/22 08:59 5 mg DAILY MARQUITA Administration Tamsulosin HCl 0.4 mg 03/06/22 09:00 03/06/22 08:38 Tamsulosin Hcl 0.4 Mg Cap PO 04/05/22 08:59 0.4 mg DAILY MARQUITA Administration Past Medical History Medical History Anxiety Bladder cancer diagnosed incidentally November 2018, status post December 2018 resection followed by induction BCG Dyslipidemia Gout History of myocardial infarction HTN (hypertension) Kidney stones Renal atrophy, left Right knee meniscal tear Past Family History Family History Grandfather No problems noted. Father Coronary heart disease Diabetes Cancer Grandmother (Paternal) Cancer Past Surgical History Surgical History H/O lithotripsy H/O right knee surgery History of cardiac cath 1998 Hx of tonsillectomy Social History Smoking Status: Never smoker Hx Alcohol Use: No Alcohol type: beer alcohol intake frequency: holidays/special occasions only Hx Substance Use: No substance use type: marijuana Physical Exam Vital Signs Last Vital Signs Temp 37.4 C 03/05/22 23:11 Pulse 79 03/06/22 04:47 Resp 18 03/06/22 04:47 BP 143/77 H 03/06/22 04:47 Pulse Ox 98 03/06/22 04:47 O2 Del Method 03/06/22 04:47 Testing Laboratory Results 03/06/22 06:40 03/06/22 06:40 Urine Color Yellow 03/06/22 01:46 Urine Appearance Clear (Clear) 03/06/22 01:46 Urine pH 7.0 (4.5-7.5) 03/06/22 01:46 Ur Specific [place] 1.009 (1.000-1.030) 03/06/22 01:46 Urine Protein Negative (Negative) 03/06/22 01:46 Urine Glucose (UA) Negative (Negative) 03/06/22 01:46 Urine Ketones Negative (Negative) 03/06/22 01:46 Urine Nitrite Negative (Negative) 03/06/22 01:46 Ur Leukocyte Esterase Negative (Negative) 03/06/22 01:46 Urine WBC (Auto) 1-5 /hpf (0-5) 03/06/22 01:46 Urine RBC (Auto) 5-10 /hpf (0-4) H 03/06/22 01:46 U Hyaline Cast (Auto) 0 /lpf (0-5) 03/06/22 01:46 U Epithel Cells (Auto) 0-5 /lpf (0-5) 03/06/22 01:46 Urine Bacteria (Auto) Negative (Negative) 03/06/22 01:46 Electrocardiogram Date: 12/29/20 Test Reason : Blood Pressure : / mmHG Vent. Rate : 063 BPM Atrial Rate : 063 BPM P-R Int : 174 ms QRS Dur : 092 ms QT Int : 424 ms P-R-T Axes : 051 031 011 degrees QTc Int : 433 ms Poor data quality, interpretation may be adversely affected Normal sinus rhythm Possible Left atrial enlargement Borderline ECG When compared with ECG of 27-DEC-2020 20:46, No significant change was found Confirmed by Pancho Yo ([id number]) on 12/29/2020 5:02:32 PM Referred By: Marcelino Proctor Confirmed By:Mohsen Yo Other Testing CLINICAL HISTORY: ? active bleeding TECHNIQUE: Helical axial images of the abdomen and pelvis were obtained and displayed. Automated dose lowering techniques and/or adjustment according to patient size were utilized for this exam. This exam was performed with intravenous contrast. CT DOSE: 721.13 mGy.cm COMPARISON: Comparison is made to CT abdomen pelvis 03/05/2022 FINDINGS: Lower chest: Bibasilar atelectasis versus scarring is seen. Previously noted pleural-based pulmonary nodules are unchanged. Liver: Unremarkable. No focal lesions are seen. Gallbladder and biliary tree: No calcified gallstones. Normal caliber wall. No intra- or extrahepatic biliary ductal dilation. Pancreas: Unremarkable, no focal lesions. Spleen: Unremarkable. Adrenals: Unremarkable. Kidneys and ureters: Subcapsular hematoma in the right kidney is seen, overall similar in extent measuring about 23 mm in greatest thickness. Obstructive sto isabelle in the right ureter are unchanged. Nonobstructive right renal calculi are again noted. The left kidney is noted to be diminutive. Bladder: Unremarkable. Reproductive organs: Prostatic calcifications are seen which may represent prior hemorrhage or granulomatous disease. Bowel: Diverticulosis is seen without evidence of diverticulitis. The appendix is unremarkable. Lymph nodes Retroperitoneal: Unremarkable. Pelvic: Prominent subcentimeter inguinal nodes are noted. Mesenteric: Unremarkable. Peritoneum: Right retroperitoneal stranding is again seen to extend into the right iliac region, unchanged, which may represent findings of hemorrhage. Vessels: Atherosclerotic calcifications are seen. Abdominal wall: Unremarkable. Bones: Degenerative changes in the visualized spine. IMPRESSION: 1. Redemonstration of right subcapsular hematoma which is unchanged in size from prior exam. No active extravasation or new hemorrhage is seen. 2. Obstructive nephrolithiasis on the right is unchanged. Again noted is a diminutive left kidney. 3. Additional findings as above. ACT 112: Negative or not required by law. Electronically signed by: Derrek Gilliam M.D. 03/06/2022 10:22 AM Dictated:03/06/22 0948 Transcribed: 03/06/22 1000
[2022-03-06] MEDS ORDERED: ceFAZolin 2000MG 2,000 MG/15 ML SYR IV ONE (11:24)
[2022-03-06] MEDS: PANTOprazole 40 MG in SYRINGE 0 ML IV SCH (12:11)
[2022-03-06] MEDS ORDERED: PROPOFOL IV EMULSION 10 MG/ML 20 ML VIAL IV ONE (12:57)
[2022-03-06] MEDS ORDERED: LIDOCAINE 2% 20 MG/ML 5 ML SYR IV ONE (12:57)
[2022-03-06] MEDS ORDERED: fentaNYL citrate 100 MCG/2 ML VIAL ONE (12:57)
[2022-03-06] MEDS ORDERED: MIDAZOLAM HCL 1 MG/ML 2ML VIAL ONE (12:57)
[2022-03-06] MEDS ORDERED: ONDANSETRON INJ 2 MG/ML 2 ML VIAL ONE (12:57)
[2022-03-06] MEDS ORDERED: fentaNYL citrate 100 MCG/2 ML VIAL IV PRN (12:59)
[2022-03-06] MEDS ORDERED: ATROPINE SULFATE 0.1 MG/ML 10ML SYR IV PRN (12:59)
[2022-03-06] MEDS ORDERED: ePHEDrine sulfate 50 MG/ML AMP IV PRN (12:59)
[2022-03-06] MEDS ORDERED: DIATRIZOATE MEGLUMINE 30% 100ML VIAL INSTIL ONE (13:24)
--- NOTE | 2022-03-06 13:25 | Post Operative Brief Note ---
PG Immediate Post Op with CF Date of Surgery March 06, 2022 Pre & Post Diagnosis Operation Date: 03/06/22 08:40 Pre-Op Diagnosis: FLANK PAIN Post-Op Diagnosis: FLANK PAIN I identified the patient and participated in the time-out.: Yes Procedure Operation Date: 03/06/22 08:40 Actual Procedures p Cystoscopy Right Retrograde Pyelogram Stent Placement(Right) - Kb Moyer MD Surgeon Kb Moyer MD Dobby Loom Fixer None Estimated Blood Loss 0 Findings See Below Stent in appropriate position. Debris from kidney but no pus. Drains Other (6x26 R stent ) Complications none
--- NOTE | 2022-03-06 13:30 | Operative Report ---
PG Post Operative Report Pre & Post Diagnosis Operation Date: 03/06/22 08:40 Pre-Op Diagnosis: FLANK PAIN Post-Op Diagnosis: FLANK PAIN I identified the patient and participated in the time-out.: Yes Procedure Operation Date: 03/06/22 08:40 Actual Procedures p Cystoscopy Right Retrograde Pyelogram with radiographic interpretation, Stent Placement(Right) - Kb Moyer MD Surgeon Kb Moyer MD Manager Client None Estimated Blood Loss 0 Findings See Below Stent in appropriate position. Debris from kidney but no pus. Specimens None Drains Right 6 Luxembourger by 26 cm ureteral stent Anesthesia Type General Complications none Indications 61-year-old male status post ESWL for right stone. He subsequently developed obstructing proximal ureteral calculi and CT scan also showed a perinephric hematoma without any active bleeding. He has what appears to be a solitary right functional kidney as his left kidney is atrophic and so he had a significant KYLEE. Risks and benefits discussed and advised that he have a stent placed. Patient agreed. Description of Procedure After informed consent was obtained, the patient was transported operative suite. MAC anesthesia was induced. The patient was placed in dorsolithotomy position prepped and draped in a sterile fashion. They received preoperative Ancef next field 26 for antibiotic prophylaxis. An appropriate surgical timeout was performed. A 22 Luxembourger rigid scope was inserted per urethra into the bladder. Monreal cystoscopy revealed no stones or lesions. I turned my attention the right ureteral orifice and intubated this with a 5 Luxembourger open-ended catheter. A right retrograde pyelogram was shot which showed mild hydronephrosis. A sensor wire was advanced into the kidney and confirmed fluoroscopically. A 6 Luxembourger by [] cm right ureteral stent was deployed with a good proximal coil in the renal pelvis and a good distal coil noted in the bladder, confirmed fluoroscopically and under direct visualization, respectively. There was some redundancy in the stent so using a grasper, I pulled out the distal coil until the redundancy was removed. The bladder was emptied and the scope was removed. This concluded the end of the case. All counts were correct at the end of the case. I was present, scrubbed, and actively participated for the entirety of the procedure. I attest to the content of the Intraoperative Record and any orders documented therein. Any exceptions are noted below.
--- NOTE | 2022-03-06 13:39 | Consultation Report ---
NEPHROLOGY CONSULTATION NOTE DATE OF SERVICE: 03/06/2022. REASON FOR CONSULTATION: Acute renal failure. HISTORY OF PRESENT ILLNESS: The patient is a 61-year-old male with past medical history significant for recurrent kidney stone problem. He presented to the hospital one day after having shock wave lithotripsy on 03/04/[address] Kaleb Dai at [facility]. The patient's baseline creatinine is completely normal at 1.1 as of 02/13/2022. The patient presented to the hospital yesterday because of increasing right sided abdominal pain in the flank. He was found to have abnormal kidney function with a creatinine of 2.76, which has subsequently gone up even higher to 3.05. The patient was not eating, drinking much as he felt his belly was very bloated and distended. The patient had CT abdomen and pelvis done, which showed two obstructing calculus in the right proximal ureter with moderate hydroureteronephrosis. There was also a large subcapsular hemorrhage with retroperitoneal extension into the retroperitoneal space. The patient does feel uncomfortable and still has significant amount of discomfort and pain. He was not having any gross hematuria in the urine, but he does have significant microscopic hematuria. Vital signs appear stable at this point. The patient is receiving some IV hydration. The patient is scheduled to have cystoscopy with right retrograde pyelogram as well as stent placement later today. PAST MEDICAL AND SURGICAL HISTORY: Includes hyperlipidemia, chronic gout, history of ME, obstipation, GERD, history of calculus of the kidneys, history of bladder cancer incidental diagnosis in 2019 with resection and intravesical BCG, left heart catheterization, colonoscopy, cysto-ureterolithotripsy of the right side and the left side, cystoscopy, tonsillectomy. MEDICATIONS: At home includes aspirin, allopurinol, Zofran, Percocet as needed, rosuvastatin 5 daily, Flomax daily. FAMILY HISTORY: Negative for renal disease or dialysis. SOCIAL HISTORY: The patient is . Former smoker, quit in . Quit alcohol in 1998. No drugs. REVIEW OF SYSTEMS: As detailed in HPI; unless stated otherwise, 12 systems reviewed and negative. PHYSICAL EXAMINATION: GENERAL: A middle-aged white male who is of moderate build. He is awake, alert, oriented x3. He is in some distress from right sided abdominal pain. VITAL SIGNS: Includes blood pressure 144/77, pulse rate 74, temperature 37.4, 94% on room air. CHEST: Bilateral clear to auscultation. CARDIOVASCULAR: S1 and S2, regular. ABDOMEN: Soft, nontender, somewhat tender in the right side of the abdomen. EXTREMITIES: Shows no edema. NEUROLOGIC: Normal speech. No focal deficit. LABORATORY TEST: Includes baseline creatinine 1.3 as of 02/13/2022 on admission, creatinine 2.76. Most recent creatinine is 3.05. Sodium 135, potassium 3.9, bicarbonate 26, chloride 103, calcium 8.2, magnesium 2.1. Urine microscopy shows 2+ blood, negative protein. CT abdomen and pelvis already detailed in HPI. ASSESSMENT AND PLAN: A 61-year-old male with a completely normal kidney function at baseline with history of recurrent kidney stone, presented to the hospital one day after the outpatient shockwave lithotripsy with right sided flank pain, which was caused by right sided hydronephrosis and perinephric hematoma and now associated with acute renal failure for which I have been consulted. Acute renal failure: At this point, he clearly fulfills the criteria for acute renal failure, given the rise of creatinine from 1.1-3.1 within few weeks. The patient does need a urological intervention, which is being planned for later today. I expect some improvement in the kidney function following the intervention. I would continue with some IV hydration as he has not been able to eat and drink much for the last few days. I would avoid nephrotoxic agents as much as possible, although he has already received some contrast and likely will receive more further urological procedure. I would avoid ketorolac and all type of NSAIDs as much as possible. Use antibiotics least likely to cause renal issues, strictly follow input and output charting and daily labs. I did explain to the patient that the following 24-48 hours would be very critical. We are hoping for renal recovery, but if the kidney function continues to get worse, we will have to consider dialysis, but at this point, it is too premature to discuss about this. I will continue to follow the patient. Thank you very much for the consult. Job ID: [id number] NOEMI
--- NOTE | 2022-03-06 13:42 | Fluoroscopy Report ---
FL retrograde includes kub CLINICAL HISTORY: Right retrograde exam with stent placement. COMPARISON STUDY: CT of the abdomen and pelvis March 06, 2022. FLUOROSCOPY TIME: 19 seconds. FLUOROSCOPIC IMAGES: 6 FINDINGS: Fluoroscopy was provided during right retrograde exam with ureteral stent. Proximal aspect of the stent projects over the right renal pelvis. IMPRESSION: Fluoroscopy provided during right retrograde exam with right ureteral stent placement. ACT 112: Negative or not required by law. Electronically signed by: Bradley Burris M.D. 03/06/2022 1:40 PM
--- NOTE | 2022-03-06 13:54 | Anesthesiology Progress Note ---
Date of Service March 06, 2022 Anesthesia Post Procedure Vital Signs Vital Signs: Temp Pulse Pulse Pulse Resp BP BP 03/06/22 13:50 64 16 130/78 03/06/22 13:40 67 18 129/76 03/06/22 13:34 99.0 F 78 18 132/76 03/06/22 12:33 98.8 F 68 20 170/96 H 03/06/22 12:15 64 18 145/94 H 03/06/22 11:33 74 18 144/74 H 03/06/22 04:47 79 18 143/77 H 03/06/22 03:33 63 18 131/79 03/06/22 02:09 66 20 145/89 H 03/06/22 02:08 03/05/22 23:11 99.3 F 77 18 184/102 H Pulse Ox O2 Del Method O2 Flow Rate 03/06/22 13:50 95 Room Air 5 03/06/22 13:40 97 Oxymask 5 03/06/22 13:34 99 Oxymask 5 03/06/22 12:33 98 Room Air 03/06/22 12:15 96 Room Air 03/06/22 11:33 94 Room Air 03/06/22 04:47 98 Room Air 03/06/22 03:33 98 Room Air 03/06/22 02:09 92 Room Air 03/06/22 02:08 92 Room Air 03/05/22 23:11 94 Room Air Pain Intensity Bilateral Abdomen: Pain Intensity: 5 Transfer of Care Handoff Completed per policy Notes Mental Status: alert / awake / arousable and participated in evaluation Patient Amnestic to Procedure: Yes Nausea / Vomiting: adequately controlled Pain: adequately controlled Airway Patency, RR, SpO2: stable & adequate BP & HR: stable & adequate Hydration State: stable & adequate Anesthetic Complications: no major complications apparent and Pt Satisfied with anesthetic care
[2022-03-06] MEDS ORDERED: SIMETHICONE 80 MG CHEW PO ONE (15:11)
--- NOTE | 2022-03-06 15:57 | Hospitalist Progress Note ---
Date of Service March 06, 2022 Assessment & Plan (1) Ureterolithiasis: (2) Kidney hematoma: (3) ARF (acute renal failure): (4) Constipation: Plan 61 year old male with recent lithotripsy who presented to the ED with right flank pain CT A/P 03/05 1. There are 2 obstructing calculi in the right proximal ureter measuring up to 5 mm. This causes mild to moderate right hydroureteronephrosis. 2. There is a large subcapsular hemorrhage of the right kidney. This causes mass effect on the subjacent renal parenchyma 3. There is retroperitoneal extension of the renal hemorrhage tracking inferiorly within the retroperitoneal space. 4. Additional nonobstructing right renal calculi as above. 5. There is asymmetric cortical atrophy of the left kidney as compared to the right. No left renal calculi are seen. 6. Mild colonic diverticulosis without CT evidence of acute diverticulitis. CT A/P 03/06 1. Redemonstration of right subcapsular hematoma which is unchanged in size from prior exam. No active extravasation or new hemorrhage is seen. 2. Obstructive nephrolithiasis on the right is unchanged. Again noted is a diminutive left kidney. 3. Additional findings as above. Right subcapsular hematoma related to recent lithotripsy - no active extravasation, stable in repeat CT, monitor H and H. Hb 14->13 Right ureteral calculi with mild-mod hydroureteronephrosis - had lithotripsy on Friday at outside facility for right kidney stone - s/p Cystoscopy Right Retrograde Pyelogram with radiographic interpretation, Stent Placement(Right) by Dr Moyer 03/06/22 - UA unremarkable, afebrile, hemodynamically stable, not sick looking. Acute renal failure- related to above. baseline Cr 1.1, currently 3. Nephro following. avoid nephrotoxic, recheck in am H/o CAD- no CP. holding aspirin d/t hematoma. Continue statin. No CP. Abd bloating/Constipation- CT A/P with no bowel obstruction. No N/V. will try enema and simethicone. recommend OOB activities and cut down on opiates. GERD- continue PPI. DVT ppx- SCD. Chemoprophylaxis C/I due to hematoma Dispo- Pending improvement. Has worsening KYLEE. Hematoma needs monitoring. Admission and Anticipated Discharge Date Admission Date: March 06, 2022 Subjective He complains of abdominal bloating and pain. States he has not passed gas or BM for 3 days after surgery which is unusual for him. He is pretty regular with BM prior to the surgery. States he did not move around much, has poor po intake and taking pain meds round the clock after the recent surgery Physical Exam Physical Exam: General: Lying comfortably in bed, not in acute distress, on room air Chest: Clear breath sounds bilaterally, no wheezes or crackles CVS: Regular rate and rhythm, normal heart sounds, no murmur Abdomen: Soft, non tender, distended, tympanitic, bowel sounds + Neuro: Awake, alert, oriented, conversing well, non focal Extremities: No edema Results & Data Results & Data ([facility]) Vital Signs (Past 12 Hours) Vital Signs Temp Pulse Pulse Resp BP Pulse Ox O2 Del Method 03/06/22 15:37 37.4 C 61 18 137/76 95 03/06/22 15:00 37.5 C 69 18 151/87 H 93 Room Air 03/06/22 14:30 64 16 137/83 94 Room Air 03/06/22 14:20 61 16 138/79 95 Room Air 03/06/22 14:10 64 16 124/71 95 Room Air 03/06/22 14:00 36.8 C 65 16 128/71 95 Room Air 03/06/22 13:50 64 16 130/78 95 Room Air 03/06/22 13:40 67 18 129/76 97 Oxymask 03/06/22 13:34 37.2 C 78 18 132/76 99 Oxymask 03/06/22 12:33 37.1 C 68 20 170/96 H 98 Room Air 03/06/22 12:15 64 18 145/94 H 96 Room Air 03/06/22 11:33 74 18 144/74 H 94 Room Air 03/06/22 04:47 79 18 143/77 H 98 Room Air O2 Flow Rate 03/06/22 15:37 03/06/22 15:00 03/06/22 14:30 03/06/22 14:20 03/06/22 14:10 03/06/22 14:00 03/06/22 13:50 03/06/22 13:40 5 03/06/22 13:34 5 03/06/22 12:33 03/06/22 12:15 03/06/22 11:33 03/06/22 04:47 Laboratory Results Short CBC 03/06/22 03/06/22 Range/Units 00:12 06:40 WBC 14.58 H 9.55 (4.8-10.8) K/ul Hgb 14.4 13.0 L (14.0-18.0) g/dl Hct 41.4 37.9 L (40.1-51.0) % Plt Count 244 205 (130-400) K/uL BMP 03/06/22 03/06/22 00:12 06:40 Sodium 133 L 135 L Potassium 4.0 3.9 Chloride 100 103 Carbon Dioxide 24 26 BUN 46 H 48 H Creatinine 2.76 H 3.05 H Glucose 107 H 122 H Calcium 9.1 8.2 L Liver Function 03/06/22 Range/Units 00:12 Total Bilirubin 0.9 (0.2-1.0) mg/dl AST 20 (13-39) U/L ALT 13 (7-52) U/L Alkaline Phosphatase 64 (34-104) U/L Albumin 4.4 (3.4-5.0) gm/dl Urine 03/06/22 Range/Units 01:46 Urine Color Yellow Urine Appearance Clear (Clear) Urine pH 7.0 (4.5-7.5) Ur Specific [place] 1.009 (1.000-1.030) Urine Protein Negative (Negative) Urine Glucose (UA) Negative (Negative) Diagnostic Findings Abdomen/Pelvis CT 03/05/22 23:14 CT SCAN OF THE ABDOMEN AND PELVIS WITHOUT IV CONTRAST CLINICAL HISTORY: Right flank pain. COMPARISON STUDY: Abdominal CT dated 01/23/2020. TECHNIQUE: CT scan of the abdomen and pelvis is performed from the lung bases to the proximal femora. Images are reviewed in the axial, sagittal, and coronal planes. IV contrast was not administered for this examination. A dose lowering technique was utilized adhering to the principles of ALARA. CT DOSE: 1304.43 mGy.cm FINDINGS: Lung bases: The heart is enlarged and without pericardial effusion. The coronary arteries are densely calcified. A small hiatal hernia is noted. Emphysematous change is suggested at the lung bases. There is bibasilar scarring/atelectasis. No airspace consolidation typical for pneumonia or pleural effusion is identified. A 4 mm pleural-based nodule at the left lung base on image #38 is unchanged from 2020, as is a 4 mm pleural-based nodule in the right middle lobe seen on image #25. Liver: The unenhanced liver is normal in size, contour, and attenuation. There is no intrahepatic biliary ductal dilatation. Gallbladder: Unremarkable. Spleen: Normal in size and attenuation. Pancreas: The unenhanced pancreas is grossly unremarkable. Adrenal glands: Unremarkable. Kidneys: There is asymmetric cortical atrophy of the left kidney as compared to the right there is a large subcapsular hemorrhage of the right kidney which measures up to 2.4 cm in thickness. This causes mass effect on the subjacent renal parenchyma. There are 2 obstructing calculi in the right proximal ureter seen on images #206 and #212 at the level of L3. These measure up to 5 mm and cause mild to moderate right hydroureteronephrosis. There are at least 2 additional nonobstructing right renal calculi which measure up to 4 mm. No left renal calculi are identified and there is no left-sided hydronephrosis. There is no evidence of contour deforming renal mass lesion. Abdominal vasculature: The abdominal aorta is normal in course and caliber noting mild atherosclerotic calcification. Bowel: There is mild colonic diverticulosis without CT evidence of acute diverticulitis. No bowel obstruction is seen. The appendix is well-visualized and normal. Peritoneum/retroperitoneum: Fluid is seen tracking inferiorly within the right retroperitoneum related to the subcapsular hemorrhage of the right kidney. There is no intraperitoneal free air or abdominal ascites. There is a small fat- containing umbilical hernia. Lymphadenopathy: None. Pelvic viscera: The bladder, prostate, and seminal vesicles are normal as visualized. Skeletal structures: There is mild lumbosacral spondylosis. No lytic or blastic lesions are seen. IMPRESSION: 1. There are 2 obstructing calculi in the right proximal ureter measuring up to 5 mm. This causes mild to moderate right hydroureteronephrosis. 2. There is a large subcapsular hemorrhage of the right kidney. This causes mass effect on the subjacent renal parenchyma 3. There is retroperitoneal extension of the renal hemorrhage tracking inferiorly within the retroperitoneal space. 4. Additional nonobstructing right renal calculi as above. 5. There is asymmetric cortical atrophy of the left kidney as compared to the right. No left renal calculi are seen. 6. Mild colonic diverticulosis without CT evidence of acute diverticulitis. 7. Additional findings as above. ACT 112: Negative or not required by law. Electronically signed by: Bret Roman M.D. 03/06/2022 8:31 AM Abdomen/Pelvis CT 03/06/22 00:26 CT abd pelvis IV con only CLINICAL HISTORY: ? active bleeding TECHNIQUE: Helical axial images of the abdomen and pelvis were obtained and displayed. Automated dose lowering techniques and/or adjustment according to patient size were utilized for this exam. This exam was performed with intrav enous contrast. CT DOSE: 721.13 mGy.cm COMPARISON: Comparison is made to CT abdomen pelvis 03/05/2022 FINDINGS: Lower chest: Bibasilar atelectasis versus scarring is seen. Previously noted p leural-based pulmonary nodules are unchanged. Liver: Unremarkable. No focal lesions are seen. Gallbladder and biliary tree: No calcified gallstones. Normal caliber wall. No intra- or extrahepatic biliary ductal dilation. Pancreas: Unremarkable, no focal lesions. Spleen: Unremarkable. Adrenals: Unremarkable. Kidneys and ureters: Subcapsular hematoma in the right kidney is seen, overall similar in extent measuring about 23 mm in greatest thickness. Obstructive stones in the right ureter are unchanged. Nonobstructive right renal calculi are again noted. The left kidney is noted to be diminutive. Bladder: Unremarkable. Reproductive organs: Prostatic calcifications are seen which may represent prior hemorrhage or granulomatous disease. Bowel: Diverticulosis is seen without evidence of diverticulitis. The appendix is unremarkable. Lymph nodes Retroperitoneal: Unremarkable. Pelvic: Prominent subcentimeter inguinal nodes are noted. Mesenteric: Unremarkable. Peritoneum: Right retroperitoneal stranding is again seen to extend into the right iliac region, unchanged, which may represent findings of hemorrhage. Vessels: Atherosclerotic calcifications are seen. Abdominal wall: Unremarkable. Bones: Degenerative changes in the visualized spine. IMPRESSION: 1. Redemonstration of right subcapsular hematoma which is unchanged in size from prior exam. No active extravasation or new hemorrhage is seen. 2. Obstructive nephrolithiasis on the right is unchanged. Again noted is a diminutive left kidney. 3. Additional findings as above. ACT 112: Negative or not required by law. Electronically signed by: Derrek Gilliam M.D. 03/06/2022 10:22 AM Retrograde Pyelogram 03/06/22 12:30 FL retrograde includes kub CLINICAL HISTORY: Right retrograde exam with stent placement. COMPARISON STUDY: CT of the abdomen and pelvis March 06, 2022. FLUOROSCOPY TIME: 19 seconds. FLUOROSCOPIC IMAGES: 6 FINDINGS: Fluoroscopy was provided during right retrograde exam with ureteral stent. Proximal aspect of the stent projects over the right renal pelvis. IMPRESSION: Fluoroscopy provided during right retrograde exam with right ureteral stent placement. ACT 112: Negative or not required by law. Electronically signed by: Bradley Burris M.D. 03/06/2022 1:40 PM Medications Administered Current Inpatient Medications Acetaminophen (Acetaminophen 325 Mg Tab) 650 mg PO Q4H PRN PRN Reason: pain/fever Stop: 04/05/22 04:02 Allopurinol (Allopurinol 300 Mg Tab) 300 mg PO DAILY [facility] Stop: 04/05/22 08:59 Last Admin: 03/06/22 08:38 Dose: 300 mg Atropine Sulfate (Atropine Sulfate 0.1 Mg/Ml 10ml Syr) 0.5 mg IV Q1M PRN PRN Reason: PACU Use-HR<40 &/or Bradycardi Stop: 03/06/22 20:59 Ephedrine Sulfate (Ephedrine Sulfate 50 Mg/Ml Amp) 5 mg IV Q5M PRN PRN Reason: PACU Use Only-SBP<90 mmHg Stop: 03/06/22 20:59 Fentanyl Citrate (Fentanyl Citrate 100 Mcg/2 Ml Vial) 25 mcg IV Q5M PRN PRN Reason: PACU Use Only-Pain Stop: 03/06/22 20:59 Hydromorphone HCl (Hydromorphone Inj 0.5 Mg/0.5 Ml Syr) 0.5 mg IV Q3H PRN PRN Reason: Severe Pain Stop: 03/20/22 04:02 Last Admin: 03/06/22 08:37 Dose: 0.5 mg Dextrose/Sodium Chloride (D5w And 1/2nss) 1,000 mls @ 125 mls/hr IV .Q8H MARQUITA Stop: 03/06/22 20:02 Last Admin: 03/06/22 15:18 Dose: 125 mls/hr Pantoprazole Sodium 40 mg/ (Syringe) 10 mls @ 5 mls/min IV DAILY@1100 [facility] Stop: 04/05/22 10:59 Last Admin: 03/06/22 12:11 Dose: 5 mls/min Ondansetron HCl (Ondansetron Inj 2 Mg/Ml 2 Ml Vial) 4 mg IV Q6H PRN PRN Reason: Nausea Stop: 04/05/22 04:02 Ondansetron HCl (Ondansetron Inj 2 Mg/Ml 2 Ml Vial) 4 mg IV ONCE PRN PRN Reason: PACU Use Only-Nausea/Vomiting Stop: 03/06/22 20:59 Oxycodone/Acetaminophen (Oxycodone/Acetaminophen 5mg/325mg Tab) 1 tab PO Q6H PRN PRN Reason: Pain Stop: 03/20/22 04:02 Polyethylene Glycol (Polyethylene (Miralax) 17 Gm Pack) 17 gm PO DAILY PRN PRN Reason: Constipation Stop: 04/05/22 04:02 Last Admin: 03/06/22 08:39 Dose: 17 gm Rosuvastatin Calcium (Rosuvastatin Calcium 5 Mg Tab) 5 mg PO DAILY MARQUITA Stop: 04/05/22 08:59 Last Admin: 03/06/22 08:38 Dose: 5 mg Tamsulosin HCl (Tamsulosin Hcl 0.4 Mg Cap) 0.4 mg PO DAILY MARQUITA Stop: 04/05/22 08:59 Last Admin: 03/06/22 08:38 Dose: 0.4 mg (1) ARF (acute renal failure) Acute renal failure type: unspecified Qualified Code(s): N17.9 - Acute kidney failure, unspecified
[2022-03-06] MEDS: ACETAMINOPHEN 325 MG TAB PO PRN ×2 (17:08→21:13)
[2022-03-06] MEDS: cefTRIAXone SODIUM 2,000 MG in DEXTROSE 5% 50 ML IV SCH (18:27)
[2022-03-06 19:52] LABS: Appearance Urine Clear (Clear); Bacteria Urine Automated Negative (Negative); Bilirubin Urine Negative (Negative); Blood Urine 3+ (Negative); Color Urine Orange; Epithelial Cell Urine Auto 20-30 /lpf (0-5); Glucose Urine UA Negative (Negative); Ketones Urine Negative (Negative); Leukocyte Esterase Urine 1+ (Negative); Nitrite Urine Negative (Negative); Protein Urine 2+ (Negative); RBC Urine Automated >30 /hpf (0-4); Specific Gravity Urine 1.011 (1.000-1.030); Urobilinogen Urine Negative (Negative)
[2022-03-07] MEDS: POLYETHYLENE (MIRALAX) 17 GM PACK PO PRN (05:35)
--- NOTE | 2022-03-07 08:56 | Urology Progress Note ---
Date of Service March 07, 2022 Assessment & Plan (1) Ureterolithiasis: (2) Kidney hematoma: Plan 61yo M who is s/p right lithotripsy on Friday at outside facility with subsequent obstruction from stones as well as a perinephric hematoma. - POD #1 s/p Cystoscopy Right Retrograde Pyelogram with radiographic interpretation, Stent Placement. - Subjectively feeling much better this morning, tolerating the ureteral stent with minimal bother. - Afebrile and hemodynamically stable at present (Tmax 37.9 yesterday afternoon). - Labs reviewed -White count 11.50, hemoglobin 13.4, creatinine 2.73 today (3.05 yesterday). Continue to trend. - Urine culture pending, on IV ceftriaxone. - Okay for discharge from perspective when medically stable. - Recommend discharge with tamsulosin, prn pain medication for stent management, and antibiotics pending final culture result. - Will arrange outpatient follow-up with our service for definitive stone treatment. - Urology will sign-off for now. Please contact us with any further questions, concerns, or changes in patient status. Admission and Anticipated Discharge Date Admission Date: March 06, 2022 Supervising Physician Co-Signing Physician Notes Saw patient with GREYSON. Agree with plan. Subjective Patient examined at bedside this AM with Dr. Moyer. Awake, ambulating in room on arrival. Reports he is feeling much better this morning. Tolerating the ureteral stent with minimal bother. He did have a temp of 37.9 yesterday afternoon, but no fevers overnight. Voiding without issue. Review of Systems Constitutional: as per Subjective / HPI Genitourinary: + as per Subjective / HPI Physical Exam Constitutional: cooperative and comfortable; no acute distress Respiratory: no respiratory distress and no labored breathing Neurologic: moves all extremities and awake Psychiatric: Orientation: alert and oriented x 3 Results & Data ([facility]) Vital Signs (Past 12 Hours) Vital Signs Temp Pulse Resp BP BP Pulse Ox O2 Del Method 03/07/22 07:20 37.1 C 66 18 144/81 H 95 Room Air 03/07/22 03:00 37.0 C 65 20 120/70 95 Room Air 03/07/22 02:09 37.1 C 03/06/22 22:10 37.2 C 67 20 132/73 95 Room Air PG Care Time/CCT Total # of Minutes Spent Total Time Spent with Patient: Total time spent is greater than 50% in coordination of care (as documented) at patient's floor/unit and/or counseling patient: Coding Level of Care Code 28545 Subseq Hosp Care Lvl 2 Diagnoses Ureterolithiasis N20.1 Kidney hematoma S37.019A
[2022-03-07] MEDS: allopurinoL 300 MG TAB PO SCH (09:16)
[2022-03-07] MEDS: TAMSULOSIN HCL 0.4 MG CAP PO SCH (09:17)
[2022-03-07] MEDS: ROSUVASTATIN CALCIUM 5 MG TAB PO SCH (09:17)
[2022-03-07 09:21] LABS: Hematocrit (blood only) 39.4 % (40.1-51.0); Hemoglobin 13.4 g/dl (14.0-18.0); Mean Corpuscular Hemoglobin 30.2 pg (25.0-34.0); Mean Corpuscular Volume 88.9 fL (80.0-100.0); Platelet Count 226 K/uL (130-400); RDW Coefficient of Variation 12.9 % (11.5-14.5); RDW Standard Deviation 42.1 fL (36.4-46.3); Red Blood Count 4.43 M/uL (4.63-6.08)
[2022-03-07 09:43] LABS: BUN Creatinine Ratio 15.4 (10-20); Calcium 8.4 mg/dl (8.5-10.1); Creatinine Clr Calc Pharmacy 29.3 ml/min; Est GFR (African American) 27.6 ml/min; Est GFR (Non-African American) 23.8 ml/min; Magnesium 2.2 mg/dl (1.7-2.4); Phosphorus 3.4 mg/dl (2.5-4.9)
[2022-03-07] MEDS: PANTOprazole 40 MG in SYRINGE 0 ML IV SCH (12:30)
--- NOTE | 2022-03-07 14:33 | Nephrology Progress Note ---
Date of Service March 07, 2022 Assessment & Plan Admission and Anticipated Discharge Date Admission Date: March 06, 2022 Subjective S--feels much better. no pain. Making urine. labs better. PHYSICAL EXAMINATION: GENERAL: A middle-aged white male who is of moderate build. He is awake, alert, oriented x3. He is in some distress from right sided abdominal pain. CHEST: Bilateral clear to auscultation. CARDIOVASCULAR: S1 and S2, regular. ABDOMEN: Soft, nontender, somewhat tender in the right side of the abdomen. EXTREMITIES: Shows no edema. NEUROLOGIC: Normal speech. No focal deficit. LABORATORY TEST: Includes baseline creatinine 1.3 as of 02/13/2022 on admission, creatinine 2.76. peak creatinine is 3.05. today is 2.7 ASSESSMENT AND PLAN: A 61-year-old male with a completely normal kidney function at baseline with history of recurrent kidney stone, presented to the hospital one day after the outpatient shockwave lithotripsy with right sided flank pain, which was caused by right sided hydronephrosis and perinephric hematoma and now associated with acute renal failure for which I have been consulted. Acute renal failure: At this point, he clearly fulfills the criteria for acute renal failure, given the rise of creatinine from 1.1-3.1 within few weeks. Creat down a bit but still lot higher than baseline. making urine. wanted to go home but now is ok to stay one more day. Like to see hgb, creat stable before discharge. does not have to be normal. Results & Data ([facility]) Vital Signs (Past 12 Hours) Vital Signs Temp Pulse Resp BP Pulse Ox O2 Del Method 03/07/22 07:20 37.1 C 66 18 144/81 H 95 Room Air 03/07/22 03:00 37.0 C 65 20 120/70 95 Room Air
--- NOTE | 2022-03-07 16:34 | Hospitalist Progress Note ---
Date of Service March 07, 2022 Assessment & Plan (1) Ureterolithiasis: (2) Kidney hematoma: (3) ARF (acute renal failure): (4) Constipation: Plan 61 year old male with recent lithotripsy who presented to the ED with right flank pain CT A/P 03/05 1. There are 2 obstructing calculi in the right proximal ureter measuring up to 5 mm. This causes mild to moderate right hydroureteronephrosis. 2. There is a large subcapsular hemorrhage of the right kidney. This causes mass effect on the subjacent renal parenchyma 3. There is retroperitoneal extension of the renal hemorrhage tracking inferiorly within the retroperitoneal space. 4. Additional nonobstructing right renal calculi as above. 5. There is asymmetric cortical atrophy of the left kidney as compared to the right. No left renal calculi are seen. 6. Mild colonic diverticulosis without CT evidence of acute diverticulitis. CT A/P 03/06 1. Redemonstration of right subcapsular hematoma which is unchanged in size from prior exam. No active extravasation or new hemorrhage is seen. 2. Obstructive nephrolithiasis on the right is unchanged. Again noted is a diminutive left kidney. 3. Additional findings as above. Perinephric subcapsular hematoma, a complication of care - He has right subcapsular hematoma likely related to recent lithotripsy - no active extravasation, stable in repeat CT, monitor H and H. Hb 14->13 Right ureteral calculi with mild-mod hydroureteronephrosis - had lithotripsy on Friday at outside facility for right kidney stone - s/p Cystoscopy Right Retrograde Pyelogram with radiographic interpretation, Stent Placement(Right) by Dr Moyer 03/06/22 - UA unremarkable, afebrile, hemodynamically stable Acute renal failure- related to above. baseline Cr 1.1, currently 3. Nephro following. avoid nephrotoxic, recheck in am Cr 3.05 -> 2.73 Improving but still significantly above baseline. Nephrology recommends patient remains until hgb/Cr closer to baseline. Patient agreeable H/o CAD- no CP. holding aspirin d/t hematoma. Continue statin. No CP. Abd bloating/Constipation- CT A/P with no bowel obstruction. Resolved with enema and simethicone. Recommend OOB activities and cut down on opiates. GERD- continue PPI. DVT ppx- SCD. Chemoprophylaxis C/I due to hematoma Dispo- Pending improvement, likely tomorrow if Cr continues to improve Patient seen in collaboration with Dr. Thompson. Please see addendum. Admission and Anticipated Discharge Date Admission Date: March 06, 2022 Supervising Physician Co-Signing Physician Notes Patient was seen and examined independently at bedside. Chart reviewed. Case discussed with Jewels Doe PA-C and agree with the documentation above with regards to HPI, Physical exam and A/P. In summary, this is a 61 year old male with recent OP lithotripsy who presented to the ED with worsening abd pain. Found to have KYLEE with right perinephric hematoma. S/p right ureteral stenting yesterday. Feels much better today. Had BM, tolerating diet. Anxious to go home, however awaiting to see the trend in improvement in renal function and stability of Hb. Continue empiric ABx pending urine clx results. Rest as per the note above. Subjective Seen and examined in 384-2. Feeling much better today after stent placement yesterday. Some mild right-sided abdominal pain but much improved from yesterday. Urinating without issue. Tolerated breakfast this morning, having normal bowel movements again. Overall feeling much improved. No fever, chills, congestion, chest pain, shortness of breath, nausea, vomiting, dysuria, diarrhea or constipation. Review of Systems Review of Systems: At least ten systems reviewed and negative except as noted in the HPI. Physical Exam Physical Exam: Gen: WD/WN, NAD, lying in bed, A&Ox3 HEENT: Normocephalic, atraumatic, conjunctivae moist, sclerae anicteric, mucous membranes moist Lung: Clear to Auscultation bilaterally, no wheezes/rales/rhonchi Heart: Regular rate, regular rhythm, no murmurs, rubs, or gallops Abdomen: Soft, mild right sided TTP, ND +BS x 4 Extremities: no edema Skin: Warm, no rash Results & Data Results & Data ([facility]) Vital Signs (Past 12 Hours) Vital Signs Temp Pulse Resp BP BP Pulse Ox O2 Del Method 03/07/22 15:05 37 C 70 16 160/89 H 96 03/07/22 07:20 37.1 C 66 18 144/81 H 95 Room Air Laboratory Results Short CBC 03/07/22 Range/Units 08:34 WBC 11.50 H (4.8-10.8) K/ul Hgb 13.4 L (14.0-18.0) g/dl Hct 39.4 L (40.1-51.0) % Plt Count 226 (130-400) K/uL BMP 03/07/22 08:34 Sodium 134 L Potassium 4.0 Chloride 102 Carbon Dioxide 24 BUN 42 H Creatinine 2.73 H D Glucose 100 H Calcium 8.4 L Urine 03/06/22 Range/Units 19:20 Urine Color [place] Urine Appearance Clear (Clear) Urine pH 6.0 (4.5-7.5) Ur Specific [place] 1.011 (1.000-1.030) Urine Protein 2+ H (Negative) Urine Glucose (UA) Negative (Negative) Diagnostic Findings Abdomen/Pelvis CT 03/05/22 23:14 CT SCAN OF THE ABDOMEN AND PELVIS WITHOUT IV CONTRAST CLINICAL HISTORY: Right flank pain. COMPARISON STUDY: Abdominal CT dated 01/23/2020. TECHNIQUE: CT scan of the abdomen and pelvis is performed from the lung bases to the proximal femora. Images are reviewed in the axial, sagittal, and coronal planes. IV contrast was not administered for this examination. A dose lowering technique was utilized adhering to the principles of ALARA. CT DOSE: 1304.43 mGy.cm FINDINGS: Lung bases: The heart is enlarged and without pericardial effusion. The coronary arteries are densely calcified. A small hiatal hernia is noted. Emphysematous change is suggested at the lung bases. There is bibasilar scarring/atelectasis. No airspace consolidation typical for pneumonia or pleural effusion is identified. A 4 mm pleural-based nodule at the left lung base on image #38 is unchanged from 2020, as is a 4 mm pleural-based nodule in the right middle lobe seen on image #25. Liver: The unenhanced liver is normal in size, contour, and attenuation. There is no intrahepatic biliary ductal dilatation. Gallbladder: Unremarkable. Spleen: Normal in size and attenuation. Pancreas: The unenhanced pancreas is grossly unremarkable. Adrenal glands: Unremarkable. Kidneys: There is asymmetric cortical atrophy of the left kidney as compared to the right there is a large subcapsular hemorrhage of the right kidney which measures up to 2.4 cm in thickness. This causes mass effect on the subjacent renal parenchyma. There are 2 obstructing calculi in the right proximal ureter seen on images #206 and #212 at the level of L3. These measure up to 5 mm and cause mild to moderate right hydroureteronephrosis. There are at least 2 additional nonobstructing right renal calculi which measure up to 4 mm. No left renal calculi are identified and there is no left-sided hydronephrosis. There is no evidence of contour deforming renal mass lesion. Abdominal vasculature: The abdominal aorta is normal in course and caliber noting mild atherosclerotic calcification. Bowel: There is mild colonic diverticulosis without CT evidence of acute diverticulitis. No bowel obstruction is seen. The appendix is well-visualized and normal. Peritoneum/retroperitoneum: Fluid is seen tracking inferiorly within the right retroperitoneum related to the subcapsular hemorrhage of the right kidney. There is no intraperitoneal free air or abdominal ascites. There is a small fat- containing umbilical hernia. Lymphadenopathy: None. Pelvic viscera: The bladder, prostate, and seminal vesicles are normal as visualized. Skeletal structures: There is mild lumbosacral spondylosis. No lytic or blastic lesions are seen. IMPRESSION: 1. There are 2 obstructing calculi in the right proximal ureter measuring up to 5 mm. This causes mild to moderate right hydroureteronephrosis. 2. There is a large subcapsular hemorrhage of the right kidney. This causes mass effect on the subjacent renal parenchyma 3. There is retroperitoneal extension of the renal hemorrhage tracking inferiorly within the retroperitoneal space. 4. Additional nonobstructing right renal calculi as above. 5. There is asymmetric cortical atrophy of the left kidney as compared to the right. No left renal calculi are seen. 6. Mild colonic diverticulosis without CT evidence of acute diverticulitis. 7. Additional findings as above. ACT 112: Negative or not required by law. Electronically signed by: Bret Roman M.D. 03/06/2022 8:31 AM Abdomen/Pelvis CT 03/06/22 00:26 CT abd pelvis IV con only CLINICAL HISTORY: ? active bleeding TECHNIQUE: Helical axial images of the abdomen and pelvis were obtained and displayed. Automated dose lowering techniques and/or adjustment according to patient size were utilized for this exam. This exam was performed with intravenous contrast. CT DOSE: 721.13 mGy.cm COMPARISON: Comparison is made to CT abdomen pelvis 03/05/2022 FINDINGS: Lower chest: Bibasilar atelectasis versus scarring is seen. Previously noted pleural-based pulmonary nodules are unchanged. Liver: Unremarkable. No focal lesions are seen. Gallbladder and biliary tree: No calcified gallstones. Normal caliber wall. No intra- or extrahepatic biliary ductal dilation. Pancreas: Unremarkable, no focal lesions. Spleen: Unremarkable. Adrenals: Unremarkable. Kidneys and ureters: Subcapsular hematoma in the right kidney is seen, overall similar in extent measuring about 23 mm in greatest thickness. Obstructive stones in the right ureter are unchanged. Nonobstructive right renal calculi are again noted. The left kidney is noted to be diminutive. Bladder: Unremarkable. Reproductive organs: Prostatic calcifications are seen which may represent prior hemorrhage or granulomatous disease. Bowel: Diverticulosis is seen without evidence of diverticulitis. The appendix is unremarkable. Lymph nodes Retroperitoneal: Unremarkable. Pelvic: Prominent subcentimeter inguinal nodes are noted. Mesenteric: Unremarkable. Peritoneum: Right retroperitoneal stranding is again seen to extend into the right iliac region, unchanged, which may represent findings of hemorrhage. Vessels: Atherosclerotic calcifications are seen. Abdominal wall: Unremarkable. Bones: Degenerative changes in the visualized spine. IMPRESSION: 1. Redemonstration of right subcapsular hematoma which is unchanged in size from prior exam. No active extravasation or new hemorrhage is seen. 2. Obstructive nephrolithiasis on the right is unchanged. Again noted is a diminutive left kidney. 3. Additional findings as above. ACT 112: Negative or not required by law. Electronically signed by: Derrek Gilliam M.D. 03/06/2022 10:22 AM Retrograde Pyelogram 03/06/22 12:30 FL retrograde includes kub CLINICAL HISTORY: Right retrograde exam with stent placement. COMPARISON STUDY: CT of the abdomen and pelvis March 06, 2022. FLUOROSCOPY TIME: 19 seconds. FLUOROSCOPIC IMAGES: 6 FINDINGS: Fluoroscopy was provided during right retrograde exam with ureteral stent. Proximal aspect of the stent projects over the right renal pelvis. IMPRESSION: Fluoroscopy provided during right retrograde exam with right ureteral stent placement. ACT 112: Negative or not required by law. Electronically signed by: Bradley Burris M.D. 03/06/2022 1:40 PM (1) ARF (acute renal failure) Acute renal failure type: unspecified Qualified Code(s): N17.9 - Acute kidney failure, unspecified
[2022-03-07] MEDS: ACETAMINOPHEN 325 MG TAB PO PRN (17:14)
[2022-03-07] MEDS: cefTRIAXone SODIUM 2,000 MG in DEXTROSE 5% 50 ML IV SCH (18:47)
[2022-03-08] MEDS: allopurinoL 300 MG TAB PO SCH (08:24)
[2022-03-08] MEDS: ROSUVASTATIN CALCIUM 5 MG TAB PO SCH (08:24)
[2022-03-08] MEDS: TAMSULOSIN HCL 0.4 MG CAP PO SCH (08:25)
[2022-03-08 09:00] LABS: Hematocrit (blood only) 38.7 % (40.1-51.0); Hemoglobin 13.5 g/dl (14.0-18.0); Mean Corpuscular Hemoglobin 30.5 pg (25.0-34.0); Mean Corpuscular Hgb Conc 34.9 g/dL (32.0-36.0); Mean Corpuscular Volume 87.6 fL (80.0-100.0); Mean Platelet Volume 9.9 fL (9.4-12.4); Platelet Count 222 K/uL (130-400); RDW Coefficient of Variation 12.6 % (11.5-14.5); RDW Standard Deviation 40.3 fL (36.4-46.3); Red Blood Count 4.42 M/uL (4.63-6.08); White Blood Count 11.06 K/ul (4.8-10.8)
[2022-03-08] MEDS ORDERED: PANTOprazole 40 MG TAB PO SCH (09:00)
[2022-03-08 09:21] LABS: BUN Creatinine Ratio 19.7 (10-20); Calcium 8.7 mg/dl (8.5-10.1); Creatinine Clr Calc Pharmacy 37.5 ml/min; Est GFR (African American) 37.3 ml/min; Est GFR (Non-African American) 32.2 ml/min
--- NOTE | 2022-03-08 09:30 | Nephrology Progress Note ---
Date of Service March 08, 2022 Assessment & Plan Admission and Anticipated Discharge Date Admission Date: March 06, 2022 Subjective Subjective S--feels better. no pain. Making urine. labs better. PHYSICAL EXAMINATION: GENERAL: A middle-aged white male who is of moderate build. He is awake, alert, oriented x3. He is in some distress from right sided abdominal pain. CHEST: Bilateral clear to auscultation. CARDIOVASCULAR: S1 and S2, regular. ABDOMEN: Soft, nontender, somewhat tender in the right side of the abdomen. EXTREMITIES: Shows no edema. NEUROLOGIC: Normal speech. No focal deficit. LABORATORY TEST: Includes baseline creatinine 1.3 as of 02/13/2022 on admission, creatinine 2.76. peak creatinine is 3.05. today is 2.13 ASSESSMENT AND PLAN: A 61-year-old male with a completely normal kidney function at baseline with history of recurrent kidney stone, presented to the hospital one day after the outpatient shockwave lithotripsy with right sided flank pain, which was caused by right sided hydronephrosis and perinephric hematoma and now associated with acute renal failure for which I have been consulted. Acute renal failure: At this point, he clearly fulfills the criteria for acute renal failure, given the rise of creatinine from 1.1-3.1 within few weeks. Creat down a bit but still higher than baseline. making urine. hgb and creat trending good. Can be d/c with f/u PCP and labs next week and nephrology within next 1-2 week. Results & Data ([facility]) Vital Signs (Past 12 Hours) Vital Signs Temp Pulse Resp BP BP Pulse Ox O2 Del Method 03/08/22 07:31 37.2 C 66 18 145/83 H 96 Room Air 03/07/22 22:19 37.1 C 64 16 134/82 97 Room Air
--- NOTE | 2022-03-08 11:46 | Discharge Summary ---
Date of Service March 08, 2022 Admission HPI Per Admitting Provider HISTORY OF PRESENT ILLNESS: This is a 61-year-old male with past medical history significant for hyperlipidemia, chronic gout, old RI, obstipation, GERD, history of calculus of kidneys, dermatophytosis, bladder cancer incidental diagnosis in 2019 at the time of stone intervention managed with resection and intravesical BCG. No recurrences, presents with left flank pain. Last Friday, the patient had a lithotripsy for the right kidney stone. Since then he has a lot of flank pain. No blood in the urine. No fevers. He thought he was passing a stone, but his pain was worsening and he came to the ER and found to have perinephric subcapsular hematoma, moderate compression of the parenchyma and acute kidney injury The patient resting comfortably, hemodynamically stable. Denies any headache. No blurred vision, no earache, no runny nose, no sore throat, no cough, no chest pain, no shortness of breath, no nausea, no vomiting. He is constipated for the last several days. Admission Exam Per Admitting Provider PHYSICAL EXAMINATION: GENERAL: The patient is of moderate build, not in acute distress. VITAL SIGNS: Temperature 37.4, pulse 66, respiratory rate 20, blood pressure 145/89, oxygen 92% on room air. HEENT: Pupils equal, round and reactive to light. Oral mucosa moist. NECK: No JVD or neck masses. CARDIOVASCULAR: S1 and S2 heard. Regular rate and rhythm. No murmur, no gallop. RESPIRATORY: Normal AP diameter. No accessory muscle use. No wheezing. ABDOMEN: Soft, bowel sounds present, nontender, no distention. No CVA tenderness. CENTRAL NERVOUS SYSTEM: Cranial nerves II-XII grossly intact, nonfocal. EXTREMITIES: No edema, no erythema. Principal Diagnosis Ureterolithiasis, kidney hematoma, acute renal injury Discharge Exam Gen: WD/WN, NAD, lying in bed, A&Ox3 HEENT: Normocephalic, atraumatic, conjunctivae moist, sclerae anicteric, mucous membranes moist Lung: Clear to Auscultation bilaterally, no wheezes/rales/rhonchi Heart: Regular rate, regular rhythm, no murmurs, rubs, or gallops Abdomen: Soft, NT/ND +BS x 4 Extremities: no edema Skin: Warm, no rash Discharge Data Allergies Allergy/AdvReac Type Severity Reaction Status Date / Time No Known Allergies Allergy Verified 03/06/22 02:55 Consultations 03/06/22 02:16 ED Decision to Admit Stat 03/06/22 08:00 Consult Urology Routine 03/06/22 08:19 Consult Nephrology Routine Procedures Performed Operation Date: 03/06/22 08:40 Actual Procedures p Cystoscopy Right Retrograde Pyelogram Stent Placement(Right) - Kb Moyer MD Ordered Studies 03/05/22 23:14 CT abd pelvis wo con Urgent 03/06/22 00:26 CT abd pelvis IV con only Stat 03/06/22 12:30 FL retrograde includes kub Routine Hospital Course (1) Ureterolithiasis: (2) Kidney hematoma: (3) ARF (acute renal failure): (4) Constipation: Plan This is a 61 year old male with recent lithotripsy who presented to the ED with right flank pain. CT abd/pelvis showed obstructing stones in right proximal ureter and large subscapular hemorrhage of the right kidney. Underwent cystoscopy Right Retrograde Pyelogram with radiographic interpretation, Stent Placement (Right) by Dr Moyer 03/06/22. Pain resolved after procedure, hemoglobin stable. Follow up scheduled with urology for next week for definitive stone treatment. Received 3 days of IV Rocephin but final urine culture without growth. No additional antibiotics indicated at this time. Continue daily Flomax, analgesics PRN. Acute renal failure with Cr up to 3 (baseline ~1) secondary to obstructing stones but Cr improving 3.05 -> 2.73 -> 2.13. Patient to repeat CBC and BMP within 1 week and follow up with nephrology in 1-2 weeks. Constipation resolved with enema. Instructed to decrease narcotic use and increase ambulation. Patient is comfortable and hemodynamically stable at time of discharge. Total Time Total Time Spent Total Time Spent (In Minutes): 50 Discharge Plan Discharge Items Patient Disposition: Home - Self-Care Reason For Visit: FLANK PAIN Discharge Diagnosis: Ureterolithiasis, kidney hematoma, acute renal injury Activity: Resume your previous activity Non-emergency contact: Primary Care Provider Call non-emergency contact if: you have any medication questions, your symptoms worsen, your pain is not controlled and you have a fever Follow-up/Referrals: Prasanth Sandra MD [Surgeon] - 03/14/22 9:25 am () Marcelino Proctor MD [Primary Care Provider] - 03/14/22 9:40 am (Date & Time 03/14/2022 9:40 AM Provider Ze Amanda MD [facility] ) Kb Moyer MD [Physician] - 03/12/22 3:10 pm Diet: Regular Addtl Attending Provider Instructions: You were admitted for right sided flank pain. CT abd/pelvis showed obstructing stones in right proximal ureter and large subscapular hemorrhage of the right kidney. Status post cystoscopy Right Retrograde Pyelogram with radiographic interpretation, Stent Placement (Right) by Dr Moyer 03/06/22. Pain resolved after procedure, hemoglobin stable. Acute renal failure secondary to obstructing stones with improving creatinine trend. Received 3 days of IV Rocephin but final urine culture without growth. No additional antibiotics indicated at this time. MEDICATION CHANGES: Continue Flomax daily PRN medication for stent pain (has Percocet at home, PRN tylenol. Avoid all NSAIDs) RECOMMENDATIONS FOR FOLLOW-UP: Follow up with urology next week as above. Repeat lab work (CBC and BMP) within 1 week prior to PCP and nephrology follow up on 03/14/22 as above. OTHER INSTRUCTIONS: Seek medical attention if you have: * temperature above 101 * chest pain or trouble breathing * abdominal pain, nausea, vomiting * diarrhea, dark stools or bloody stools * any unanswered questions or concerns Call 911 if symptoms are severe. Please take good care of yourself. Call if you have any questions or problems. You can reach a [facility] hospitalist on duty at [facility] 24 hours a day by calling [phone]. Jewels Doe PA-C [facility] Hospitalist Pending Studies at Discharge: No Stand-Alone Forms: My [facility], Opioid Pain Management, Work/School Release, Smoking Cessation Medications and DC Order Prescriptions: Continued allopurinol 300 mg tablet 300 mg PO DAILY Qty: 30 2RF (DME) Oxygen Home Liters Per Minute See Rx Instructions .ROUTE .COMPLEX Qty: 1 0RF Rx Instructions: 1LPM oxygen supplementation with ambulation ondansetron HCl 4 mg tablet 4 mg PO Q6 PRN (Reason: Nausea And Vomiting) oxycodone-acetaminophen 5-325 mg tablet 1 tab PO UD PRN (Reason: Pain) aspirin 81 mg tablet,delayed release (DR/EC) 81 mg PO DAILY tamsulosin 0.4 mg capsule 0.4 mg PO DAILY Qty: 30 0RF rosuvastatin 5 mg tablet 5 mg PO DAILY Discharge Orders: Discharge Order (Routine); Ordered 03/08/22 Ordered By: Jewels Fernandez/Other Patient Handouts: Your Risk Factors for Heart Disease, Controlling Your Cholesterol, Treating Constipation, Cholesterol Lifestyle Changes Admission Data Admit Date/Time: 03/06/22 03:06 Attending Provider: Chidi Thompson Admit Provider: Andrey Payne Primary Care Provider: Marcelino Proctor Other Providers: Andrey Payne ; Josias Otero ; Jt Jimenez ; Pancho Ordoñez ; Gi Marques ; Darci Cobian ; Olya Grissom ; Tesha Stoner ; Nba Bean ; Betsy Flower ; Ary Motley ; Dave Willingham ; Claudia Mayen ; Kb Moyer ; Prasanth Sandra ; Jewels Doe Other Interventions: Discharge Summary Assessment (RN) Last Done: 03/08/22 11:35 Supervising Physician Co-Signing Physician Notes Patient was seen and examined independently at bedside. Chart reviewed. Case discussed with Jewels Doe PA-C and agree with the documentation above. In summary, this is a 61 year old male with recent OP lithotripsy who presented to the ED with worsening abd pain. Found to have KYLEE with right perinephric hematoma. S/p right ureteral stenting 2 days back. Continues to feel better and anxious to go home. Hematoma stable, hemoglobin stable. KYLEE improving and cleared by nephro for discharge. Recommended repeat CBC, BMP in a week and follow up with PCP and nephro. Recommend follow up with uro for further management of stent/stones. Pain is controlled, tolerating diet well, voiding and having BM. Ambulating independently. Empiric ABx discontinued as urine clx negative, afebrile and clinically good. Rest as per the note above.
== END 2022-03-08 12:22 | disposition home or self-care (01) | DRG 908 ==
LOC: ED 22:58 → EDINP 03-06 03:06 → 3N 03-06 15:20